=== PATIENT | male | born 1945 | race Caucasian/White ===

== ENCOUNTER 2020-04-03 07:36 | Outpatient (CLI) | payer OTHER, SELFPAY ==
[2020-04-03 10:48] LABS: Basophils % 0.3 %; Eosinophils % 0.3 %; Hematocrit 38.6 % (42.0-52.0); Hemoglobin 12.8 g/dL (11.7-16.6); Lymphocytes % 13.7 %; Mean Corpuscular HGB Conc 33.2 g/dL (30.0-36.0); Mean Corpuscular Hemoglobin 32.1 pg (28.0-34.0); Mean Corpuscular Volume 96.7 fL (80-94); Mean Platelet Volume 8.7 fL (7.4-10.4); Monocytes # 0.4 10^3/uL (0.2-0.9); Monocytes % 5.6 %; Neutrophils # 5.5 10^3/uL (1.8-7.7); Neutrophils % 79.5 %; Nucleated Red Blood Cells % 0 %; Platelet Count 172 10^3/cmm (130-400); Red Blood Count 3.99 10^6/uL (4.1-5.3); Red Cell Distribution Width 13.7 % (12.1-15.1); White Blood Count 6.9 10^3/uL (4.0-10.0)
[2020-04-03 11:38] LABS: Testosterone Total < 2.5 ng/dL (193-740)
[2020-04-03 11:47] LABS: Alanine Aminotransferase 15 U/L (0-41); Albumin Level 4.6 g/dL (3.5-5.2); Alkaline Phosphatase 506 IU/L (40-130); Anion Gap 15.7 (5-19); Aspartate Amino Transferase 18 U/L (0-40); Blood Urea Nitrogen 16 mg/dL (8-23); Calcium 8.7 mg/dL (8.5-10.5); Carbon Dioxide 27 mmol/L (22-29); Chloride 104 mmol/L (98-107); Globulin 1.9 g/dL (1.3-4.6); Glucose 121 mg/dL (65-115); Osmolality Calculated 292 mOsm/kg (285-295); Potassium 4.7 mmol/L (3.5-5.1); Sodium 142 mmol/L (136-145); Total Bilirubin 0.7 mg/dL (0.15-1.2); Total Protein 6.5 g/dL (6.6-8.7)
[2020-04-03 12:12] LABS: Carcinoembryonic Antigen 4.2 ng/mL (0.0-4.7)
--- NOTE | 2020-04-03 18:19 | ONC CON_ITS ---
Dr. lAlen New Patient Note Patient: Micah Bhandari Unit #: [id number]: 1945 Dicatated By: Della Allen M.D.Date of Visit: Apr 03, 2020 Onc MED New Patient/Consult Referring Physician: JUANCHO BOWDEN History of Present Illness: Mr. Micah Bhandari, 74-year-old gentleman with history of hormone refractory prostate cancer, bone mets, history of basal cell carcinoma involving skin on the right protestant, distant history of colon cancer. As per patient initially, he was diagnosed with prostate cancer in 2005 when he was in [facility] at that time he was treated with radiation therapy along with Zoladex/Casodex for 1 year., With that his PSA become undetected. And during follow-up he did fine till April 2015, when his PSA increased to 12.2 then repeat on June 17, 2015 it went up to 17 at that point, he was started on ADT with Eligard and Casodex with that his PSA came down to 0.1 then slowly gradually started going up again in January his PSA gone up to 1.7 and repeat on May 21, 2017 it was 2.5 and on August 18, 2017 it was 5.8, on November 16, 2017 it was 14.9, at that point bone scan and CT scan of abdomen pelvis was considered and was performed on February 23, 2018 which showed right 12th rib involvement, left second rib and mid femur involvement so at this point Xtandi 160 mg was added to the Eligard, which he tolerated well and his repeat PSA showed progression and on March 01, 2019 his PSA was 7, and advised to go on [id number] PSA checkup and follow-up PSA level continues to go up and on April 04, 2019 it was 11.3 and on June 08, 2019 it was 20.3. Confirming failure of Xtandi at that point he was switched to Zytiga 1000 mg/prednisone 10 mg. And patient was referred to Dr. Montgomery radiation oncologist in [place] for radiation therapy to right mid femur and left scapula and chest wall mass. Patient continued with Zytiga/prednisone/Eligard during radiation therapy and to follow-up bone scan and CT scan of chest abdomen pelvis done on August 09, 2019 showed no visceral disease but increasing metabolism in the right femur. Right 12th rib hypermetabolism had resolved and the PSA improved from 20.3 on June 08 2019-11.7 on August 14, 2019 and then 10.1 on August 29, 2019 and 9.51 September 28, 2019, which was encouraging but it was unclear as whether it was due to radiation therapy or Zytiga/prednisone. Patient was referred to Dr. Huerta, orthopedic oncology for right femur medullary nail placement but it was not recommended. And patient underwent dental clearance for Zometa therapy His follow-up PSA on November 23 gone up to 23.4 compared to 9.5 on September 28, 2019, he was concerned as a PSA doubling time was less than 2 months, and there was concern regarding failure of Zytiga/prednisone. At that time molecular studies including MMR D/and BRCA2/PALB2 was considered but could not get original blocks from [facility] for the testing. In the meantime patient underwent PET scan on December 20, 2019 which showed reidentification of soft tissue mass encasing left second rib, with SUV of 6.6 and rib is eroded. Maximum dimension of the mass is 6 cm. In the left upper lobe of lung adjacent to this mass is 14.8 mm nodule with SUV of 4.14. Suspicious for neoplastic process. FDG in remainder of internal organ is within normal range. Right temporal skin lesion shows SUV 3.4 consistent with neoplastic process. Right lip skin lesion has SUV of 2.8. Left cheek skin with SUV of 1.4 that is of uncertain significance. Multiple bone lesions have increased FDG and concurrent sclerosis consistent with metastatic disease to the bone and the sites are right seventh rib, right glenoid, right humerus, left humerus, left sixth rib, vertebral body T6, vertebral body T10, left sacrum, right femoral neck, right proximal femur. Patient was started on Zometa 4 mg IV on November 23, 2019 and will continue on Zytiga/prednisone/6 monthly Eligard. Because initial biopsy blocks were not available from [facility], biopsy of left second rib/mass was under consideration to confirm metastatic prostate cancer if it does, consider molecular studies if it shows dMMR in that case pembrolizumab can be considered on the other hand if it shows BRCA2 or PALB2 mutation then palbociclib can be considered. In the meantime initiating treatment with Taxotere was also discussed. But due to coronavirus related problems patient could not go back to [place] so he missed his 6 monthly Eligard dose which was due in February 2020 and also missed 3 monthly Zometa dose which was due on February 22, 2020 but continue take Zytiga thousand milligrams along with prednisone 10 mg. And could not get scheduled follow-up biopsy of left second rib mass either.Patient also has history of coronary artery disease, as per patient not being managed conservatively with nitroglycerin as needed. And sometime it (nitroglycerin) makes his 'blood pressure go down'. Patient denies any specific complaint today, no left chest wall pain, no any other bony pains but indigestion or burping off and on some time mid chest discomfort due to that and usually respond to nitroglycerin as recommended by his billing auditor. But no fever or chills, no nausea or vomiting, no diarrhea or constipation, no dysuria or hematuria. Past Medical History: Mr. Bhandari's medical history consists of aortic valve stenosis, hiatal hernia, history of colon cancer, history of prostate cancer, and hypertension. Past Surgical History: Mr. Bhandari's surgical/procedural history consists of right hemicolectomy in 2009. Medications: Ascorbic Acid 1 Tablet (of 500 mg) Oral b.i.d., Aspirin 1 Tablet (of 81 mg) Oral daily, Atorvastatin Calcium 1 (40 mg) Tablet Oral at bedtime, Calcium 500 + D3 2 Tablet (of 500-200 mg - Units) Oral daily, Cinnamon 1,000 mg (of 500 mg) Tablet Oral daily, Flax Seed Oil 1 Tablet (of 1300 mg) Capsule Oral b.i.d., Garlic 1 Tablet (of 1000 mg) Capsule Oral daily, Glucosamine HCl 2,000 mg (of 1000 mg) Tablet Oral b.i.d., Isosorbide Mononitrate ER 1 (30 mg) Tablet SR 24 HR Oral daily, Lisinopril 1 Tablet (of 20 mg) Oral daily, Emmett Multi Men 1 Tablet Oral daily, Milk Thistle 1 Tablet (of 175 mg) Capsule Oral daily, Nitroglycerin 1 Tablet (of 0.4 mg) Tablet, sublingual Sublingual PRN, Potassium 1 Tablet (of 595 mg) Oral daily, Potassium Gluconate 1 Tablet (of 595 (99 k) mg) Oral daily, predniSONE 1 Tablet (of 5 mg) Oral b.i.d., RA St [place] Wort 1 Tablet (of 300 mg) Oral b.i.d., Rosuvastatin Calcium 1 Tablet (of 20 mg) Oral at bedtime, Zytiga 4 Tablet (of 250 mg) Oral daily Allergies: Lipitor Social History: Mr. Bhandari is and he is retired. Mr. Bhandari quit smoking 16 years ago but had smoked 1.0 pack/day for 40 years. He has no history of drinking. Mr. Bhandari reports the following support systems: lives with spouse, significant other, family, or friends, lives in own house, supportive family/friends willing to assist with needs, and adequate transportation available for expected visits. His diet consists of regular meals. He indicates his activity level as: light exercise. Family History: Mr. Bhandari's mother is : colon cancer. Mr. Bhandari's father at age 75: stroke. Review Of Symptoms: Constitutional - Appetite is good and weight is stable. No fever, night sweats. Positive for occasional hot flashes. Energy level is good, ENMT - Positive for sinus congestion/drainage. No mouth sores. No sore throat or difficulty swallowing, Hematologic/Lymphatic - No abnormal bruising or bleeding, Respiratory - No shortness of breath. No cough. No pleuritic pain or hemoptysis, Cardiovascular - No angina pain. Positive for occasional palpitations, Gastrointestinal - No nausea or vomiting. No heartburn or acid reflux. No diarrhea or constipation. No blood in the stool or black stools, Genitourinary (M) - No dysuria or hematuria. No urinary frequency. No urgency. Positive for incontinence, Musculoskeletal - Pt reports arthritis pain, Integumentary - Positive for basal cell skin cancers per Pt report, Neurologic - No headache or dizziness. Positive for slight numbness in toes, Psychiatric - No anxiety or depression. No insomnia. Vital Signs: Performed on Apr 03, 2020 08:39: 0, 30.62 (HIGH), 1.91 sq.m, 65.00 in, 98 %, 69 /min, 18 /min, 165/71 mm(hg) (HIGH), 97.8 F (LOW), and 184.0 lbs (HIGH). Performance Status: 1 - No physically strenuous activity, but ambulatory and able to carry out light or sedentary work (e.g. office work, light house work). (ECOG) Physical Examination: ENMT - No mouth sores, no thrush, no jaundice, Respiratory - Lungs are clear, Cardiovascular - Regular rate and rhythm of heart, Abdomen - Soft, bowel sounds present, Extremities - No visible edema. Lab/Imaging: Most recent lab results are not available for this patient. Impression: Hormone refractory metastatic prostate cancer with extensive bone mets, 6 monthly Eligard/Casodex was started June 2015 And continued Status post Xtandi from February 23, 2018 till May 2019 External beam radiation to right hip and left shoulder in May 2019 through June 23, 2019 Zytiga/prednisone was added in June 2019 3 monthly Zometa was added on November 23, 2019 initially diagnosed in 2006, at that time he was treated with prostate radiation therapy and year-long Zoladex/Casodex with excellent response CT PET scan done on December 20, 2019 showed left second rib soft tissue mass encasing and eroding the rib size 6 cm and SUV 6.6. In the left upper lobe of lung adjacent to this mass is 14.8 mm nodule with SUV of 4.14, suspicious for neoplastic process. No other visceral involvement. Extensive bone mets Plan: Discussed with patient regarding his disease status and treatment options which include systemic chemotherapy with Taxotere/prednisone as suggested and planned by Dr. Boss is medical oncologist in [facility] but patient is reluctant due to related side effects and toxicity other option would be considering biopsy of left second rib mass to confirm metastatic prostate cancer, if it does then consider molecular profiling with next addition sequencing which include dMMR, if positive pembrolizumab can be considered and if BRCA2 orPALB2 mutation is detected, palbociclib can be considered. And if PIC3CA mutation is detected then alpelisib (piqray) can be considered. On the other hand if it shows a second malignancy then will plan accordingly. In the meantime we will obtain approval for Eligard or Lupron and continue on 6 monthly schedule. And also approval for Zometa 4 mg every 3 months. And continue with Zytiga and prednisone until left second rib mass biopsy results available. In the meantime will obtain baseline CBC CMP PSA and testosterone level and then patient will return to clinic in 1 month with a PSA level. As far as coronary artery disease is concerned, patient is being treated conservatively and using nitroglycerin off and on for vague mid chest pain/discomfort, we will refer him to cardiology for evaluation and management. Patient was advised to continue with aspirin as recommended. All the questions and concerns were discussed to patient and his 's satisfaction. Signed By: Della Allen M.D. <<Signature on File>>
== END 2020-04-03 07:37 | disposition home or self-care (01) ==
PROVIDERS: PCP Emergency Medicine; Visit Provider Internal Medicine Hematology & Oncology
DX: C61 Malignant neoplasm of prostate (principal); C79.51 Secondary malignant neoplasm of bone; I25.10 Atherosclerotic heart disease of native coronary artery without angina pectoris; Z92.3 Personal history of irradiation; Z79.818 Long term (current) use of other agents affecting estrogen receptors and estrogen levels
CPT/HCPCS: 80053; 82378; 84153; 84403; 85025; G0463

== ENCOUNTER 2020-04-05 09:16 | Outpatient (CLI) | payer OTHER, SELFPAY ==
[2020-04-05] MEDS: sodium chloride 0.9% (100 ml) 100 ML 75 ML (09:35)
[2020-04-05] MEDS: zoledronic acid 4 MG in sodium chloride 0.9% (100 ml) 100 ML 300 MG IV (09:45)
[2020-04-05] MEDS: leuprolide 45 mg Kit IM (10:20)
== END 2020-04-05 09:17 | disposition home or self-care (01) ==
LOC: ONCMED 09:19
PROVIDERS: PCP Emergency Medicine; Visit Provider Internal Medicine Hematology & Oncology
DX: C79.51 Secondary malignant neoplasm of bone (principal); I10 Essential (primary) hypertension; I35.0 Nonrheumatic aortic (valve) stenosis; Z85.46 Personal history of malignant neoplasm of prostate; Z85.038 Personal history of other malignant neoplasm of large intestine
CPT/HCPCS: 96365; 96372; 96402; J3489; J9217

== ENCOUNTER 2020-05-14 10:04 | Outpatient (CLI) | payer OTHER, SELFPAY ==
--- NOTE | 2020-05-14 10:12 | CT_ITS ---
WS: [id number] CT CHEST TECHNIQUE: Contrast enhanced CT of the chest with coronal and sagittal reformatted images. CLINICAL INFORMATION: chest wall mass COMPARISON: CT and bone scan May 25, 2019 DLP: 842.[address] scans at [facility] use at least one of these dose optimization techniques: automat ed exposure control; mA and/or kV adjustment per patient size (includes targeted exams where dose is matched to clinical indication); or iterative reconstruction. FINDINGS: Again seen is the large left chest wall mass involving the second rib and extending into the axilla. Erosive changes involving the lateral first rib. This is not significantly changed in size compared t o and today measures approximately 6.5 x 6.2 x 6.9cm. This extends into the chest cavity an d lung parenchyma with surrounding new nodularity and infiltrate. Soft tissue thickening extends to t he left hilum with New enlarged metastatic left AP window lymph node measuring 1.6 cm. Diffuse blastic metastatic disease throughout the visualized thoracic spine has significantly progres sed since . Diffuse blastic metastasis throughout the visualized ribs and appendicular skelet on. Aortic calcification. Coronary calcification. No mediastinal lymphadenopathy. New low-attenuation les ions in the liver likely due to metastatic disease. Largest in the right hepatic lobe measuring 2.2 C M. This is only partially evaluated CT/CT chest w con* [id number] IMPRESSION: 1. Diffuse blastic metastatic disease throughout the visualized axial and appe ndicular skeleton as significantly progressed since the prior examinations. 2. Low-attenuation lesions partially visualized in the right hepatic lobe like ly due to metastatic disease. This is only partially evaluated. 3. Left anterior chest wall mass with involvement of the first and second ribs measuring 6.2 x 6.5 x 6.9 cm is not significantly changed in size. 4. New nodular soft tissue deposits about the chest wall mass involving the gillis rrounding lung suspicious for local metastatic disease and parenchymal invasion . 5. New metastatic left AP window lymph node measuring 1.6 cm.
[2020-05-14] MEDS: iohexol 300 mg/mL 100 mL Btl IV (10:41)
== END 2020-05-14 10:05 | disposition home or self-care (01) ==
LOC: RADWPI 10:06
PROVIDERS: Family Provider Emergency Medicine Emergency Medical Services; PCP Emergency Medicine Emergency Medical Services; Visit Provider Surgery
DX: R22.2 Localized swelling, mass and lump, trunk (principal); K76.9 Liver disease, unspecified
CPT/HCPCS: 71260; Q9967

== ENCOUNTER 2020-05-23 06:21 | Outpatient (CLI) | payer OTHER, SELFPAY ==
[2020-05-22 11:43] VITALS: BMI 28.6
[2020-05-23] VITALS (9 sets, daily range): BP systolic 102–170; BP diastolic 53–107; PULSE 76–104; RESP 18–20; TEMP 36.5; O2SAT 95–100
[2020-05-23] MEDS: sodium chloride 0.9% 1,000 ML 30 ML IV (06:55)
[2020-05-23 07:12] LABS: INR 0.95 (0.8-1.2)
--- NOTE | 2020-05-23 08:00 | CT_ITS ---
WS: [id number] LUNG BIOPSY CLINICAL INFORMATION: LEFT UPPER LUNG LOBE MASS COMPARISON: None. DLP: 753.02 mGy.cm TECHNIQUE: The procedure including risks, benefits, and complications were discussed with the patient who agreed to proceed. Using sterile technique, the patient was prepped and draped in the usual ster ile fashion. Patient was positioned supine and CT images were obtained through the left lung. The lar ge peripheral lung mass was selected. After 1% lidocaine using fluoroscopic guidance, a 18-gauge coa xial needle was advanced into the left lung mass. Approximately 5 samples were obtained. Post procedu re CT images demonstrate expected hemorrhage about the region. No visualized pneumothorax. No immedia te complications. CT/CT biopsy lung [id number] IMPRESSION: 1. Multiple 18-gauge core samples were obtained of the left lung mass. No imme diate complications. 2. 90 minute chest x-ray demonstrates no pneumothorax 3. Patient was discharged 2 hours postprocedure in stable condition.
[2020-05-23] MEDS: midazolam 1 mg/mL INJ 2 mL IV ×2 (09:01→09:07)
[2020-05-23] MEDS: midazolam 1 mg/mL INJ 5 ML IV ×2 (09:01→09:07)
[2020-05-23] MEDS: fentaNYL 50 mcg/mL INJ 2mL 25 MCG IVP ×3 (09:02→09:08)
[2020-05-23] MEDS: midazolam 1 mg/mL INJ 2 mL IVP (09:07)
--- NOTE | 2020-05-23 10:35 | XR_ITS ---
WS: [id number] CHEST XRAY TECHNIQUE: Portable chest. CLINICAL INFORMATION: PSOT BIOPSY COMPARISON: CT chest May 14, 2020 FINDINGS: Heart: Cardiomegaly. Aortic calcification. Lungs: Again seen is the large left upper lung mass involving the first and second ribs. No evidence of pneumothorax. Bones: Diffuse blastic metastasis better visualized on the prior CT. XR/XR chest 1V portable [id number] IMPRESSION: 1. Status post biopsy of the large left upper lobe chest wall mass. No pneumot horax. 2. No other significant changes since the prior CT.
--- NOTE | 2020-05-23 10:55 | SUR.PHASEII ---
DOCTOR SEGURA REVIEWED CHEST X RAY. PT MAY BE DISCHARGED AT 11:30.
== END 2020-05-23 11:36 | disposition home or self-care (01) ==
PROVIDERS: Radiology Neuroradiology; Family Provider Emergency Medicine Emergency Medical Services; PCP Emergency Medicine Emergency Medical Services; Visit Provider Surgery
DX: R91.8 Other nonspecific abnormal finding of lung field (principal)
CPT/HCPCS: 32405; 36415; 71045; 77012; 85610; 88307; 96374; 96375; J2250; J3010; J7030

== ENCOUNTER 2020-06-10 11:29 | Outpatient (CLI) | payer OTHER, SELFPAY ==
--- NOTE | 2020-06-11 19:25 | ONC FU_ITS ---
Dr. Allen follow up note Patient: Micah Bhandari Unit #: [id number]: 1945 Dicatated By: Della Allen M.D.Date of Visit:Jun 10, 2020 Onc Med Follow-up/Prog Note History of Present Illness: Mr. Micah Bhandari, 74-year-old gentleman with history of hormone refractory prostate cancer, bone mets, history of basal cell carcinoma involving skin on the right jewish, distant history of colon cancer. As per patient initially, he was diagnosed with prostate cancer in 2005 when he was in [facility] at that time he was treated with radiation therapy along with Zoladex/Casodex for 1 year., With that his PSA become undetected. And during follow-up he did fine till April 2015, when his PSA increased to 12.2 then repeat on June 17, 2015 it went up to 17 at that point, he was started on ADT with Eligard and Casodex with that his PSA came down to 0.1 then slowly gradually started going up again in January his PSA gone up to 1.7 and repeat on May 21, 2017 it was 2.5 and on August 18, 2017 it was 5.8, on November 16, 2017 it was 14.9, at that point bone scan and CT scan of abdomen pelvis was considered and was performed on February 23, 2018 which showed right 12th rib involvement, left second rib and mid femur involvement so at this point Xtandi 160 mg was added to the Eligard, which he tolerated well and his repeat PSA showed progression and on March 01, 2019 his PSA was 7, and advised to go on [id number] PSA checkup and follow-up PSA level continues to go up and on April 04, 2019 it was 11.3 and on June 08, 2019 it was 20.3. Confirming failure of Xtandi at that point he was switched to Zytiga 1000 mg/prednisone 10 mg. And patient was referred to Dr. Montgomery radiation oncologist in [place] for radiation therapy to right mid femur and left scapula and chest wall mass. Patient continued with Zytiga/prednisone/Eligard during radiation therapy and to follow-up bone scan and CT scan of chest abdomen pelvis done on August 09, 2019 showed no visceral disease but increasing metabolism in the right femur. Right 12th rib hypermetabolism had resolved and the PSA improved from 20.3 on June 08 2019-11.7 on August 14, 2019 and then 10.1 on August 29, 2019 and 9.51 September 28, 2019, which was encouraging but it was unclear as whether it was due to radiation therapy or Zytiga/prednisone. Patient was referred to Dr. Huerta, orthopedic oncology for right femur medullary nail placement but it was not recommended. And patient underwent dental clearance for Zometa therapy His follow-up PSA on November 23 gone up to 23.4 compared to 9.5 on September 28, 2019, he was concerned as a PSA doubling time was less than 2 months, and there was concern regarding failure of Zytiga/prednisone. At that time molecular studies including MMR D/and BRCA2/PALB2 was considered but could not get original blocks from [facility] for the testing. In the meantime patient underwent PET scan on December 20, 2019 which showed reidentification of soft tissue mass encasing left second rib, with SUV of 6.6 and rib is eroded. Maximum dimension of the mass is 6 cm. In the left upper lobe of lung adjacent to this mass is 14.8 mm nodule with SUV of 4.14. Suspicious for neoplastic process. FDG in remainder of internal organ is within normal range. Right temporal skin lesion shows SUV 3.4 consistent with neoplastic process. Right lip skin lesion has SUV of 2.8. Left cheek skin with SUV of 1.4 that is of uncertain significance. Multiple bone lesions have increased FDG and concurrent sclerosis consistent with metastatic disease to the bone and the sites are right seventh rib, right glenoid, right humerus, left humerus, left sixth rib, vertebral body T6, vertebral body T10, left sacrum, right femoral neck, right proximal femur. Patient was started on Zometa 4 mg IV on November 23, 2019 and will continue on Zytiga/prednisone/6 monthly Eligard. Because initial biopsy blocks were not available from [facility], biopsy of left second rib/mass was under consideration to confirm metastatic prostate cancer if it does, consider molecular studies if it shows dMMR in that case pembrolizumab can be considered on the other hand if it shows BRCA2 or PALB2 mutation then palbociclib can be considered. In the meantime initiating treatment with Taxotere was also discussed. But due to coronavirus related problems patient could not go back to [place] so he missed his 6 monthly Eligard dose which was due in February 2020 and also missed 3 monthly Zometa dose which was due on February 22, 2020 but continue take Zytiga thousand milligrams along with prednisone 10 mg. And could not get scheduled follow-up biopsy of left second rib mass either.Patient also has history of coronary artery disease, as per patient not being managed conservatively with nitroglycerin as needed. And sometime it (nitroglycerin) makes his 'blood pressure go down'. Patient denies any specific complaint today, no left chest wall pain, no any other bony pains but indigestion or burping off and on some time mid chest discomfort due to that and usually respond to nitroglycerin as recommended by his baggage clerk. But no fever or chills, no nausea or vomiting, no diarrhea or constipation, no dysuria or hematuria.Came for follow-up, denies any specific complaints except right jewish skin lesion and the right upper lip lesion for which he is going to see dermatology in [place] otherwise denies any fever chills denies any nausea vomiting diarrhea diarrhea constipation denies any chest pain hemoptysis or hematemesis, appetite is good. Occasionally hot flashes otherwise no new symptoms Medications: Ascorbic Acid 1 Tablet (of 500 mg) Oral b.i.d., Aspirin 1 Tablet (of 81 mg) Oral daily, Atorvastatin Calcium 1 (40 mg) Tablet Oral at bedtime, Calcium 500 + D3 2 Tablet (of 500-200 mg - Units) Oral daily, Cinnamon 1,000 mg (of 500 mg) Tablet Oral daily, Flax Seed Oil 1 Tablet (of 1300 mg) Capsule Oral b.i.d., Garlic 1 Tablet (of 1000 mg) Capsule Oral daily, Glucosamine HCl 2,000 mg (of 1000 mg) Tablet Oral b.i.d., Isosorbide Mononitrate ER 1 (30 mg) Tablet SR 24 HR Oral daily, Lisinopril 1 Tablet (of 20 mg) Oral daily, Emmett Multi Men 1 Tablet Oral daily, Milk Thistle 1 Tablet (of 175 mg) Capsule Oral daily, Nitroglycerin 1 Tablet (of 0.4 mg) Tablet, sublingual Sublingual PRN, Potassium 1 Tablet (of 595 mg) Oral daily, Potassium Gluconate 1 Tablet (of 595 (99 k) mg) Oral daily, predniSONE 1 Tablet (of 5 mg) Oral b.i.d., RA St Coleman Wort 1 Tablet (of 300 mg) Oral b.i.d., Rosuvastatin Calcium 1 Tablet (of 20 mg) Oral at bedtime, Zytiga 4 Tablet (of 250 mg) Oral daily Allergies: Lipitor Review of Systems: Constitutional - Appetite is good and weight is stable. No fever, night sweats. Positive for occasional hot flashes. Energy level is good, ENMT - Positive for sinus congestion/drainage. No mouth sores. No sore throat or difficulty swallowing, Hematologic/Lymphatic - No abnormal bruising or bleeding, Respiratory - No shortness of breath. No cough. No pleuritic pain or hemoptysis, Cardiovascular - No angina pain. Positive for occasional palpitations, Gastrointestinal - No nausea or vomiting. No heartburn or acid reflux. No diarrhea or constipation. No blood in the stool or black stools, Genitourinary (M) - No dysuria or hematuria. No urinary frequency. No urgency. Positive for incontinence, Musculoskeletal - Pt reports arthritis pain, Integumentary - Positive for basal cell skin cancers per Pt report, Neurologic - No headache or dizziness. Positive for slight numbness in toes, Psychiatric - No anxiety or depression. No insomnia. Vital Signs: Performed on Jun 10, 2020 11:37 Height - 65.00 in Weight - 173.2 lbs (LOW) BSA - 1.86 sq.m BMI - 28.82 Temperature - 97.9 F (LOW) Pulse - 97 /min Respiration - 18 /min BP - 133/76 mm(hg) O2 Sat - 99 % Pain - 0 Performance Status: 0 - Fully active, able to carry on all predisease activities without restrictions. (ECOG) Physical Examination: ENMT - No mouth sores, no thrush, no jaundice, There is about 1 cm lesion on the right jewish and also on the left upper lip consistent with ? basal cell carcinoma, Respiratory - Lungs are clear, Cardiovascular - Regular rate and rhythm of heart, Abdomen - Soft, bowel sounds present, Extremities - No visible edema. Lab/Imaging: Test performed on Apr 03, 2020 10:19 Sodium 142 mmol/L Testosterone, Total < 2.5 ng/dL Potassium 4.7 mmol/L Chloride 104 mmol/L CO2 27 mmol/L Anion Gap 15.7 BUN 16 mg/dL Creatinine 0.6 mg/dL Cr Clearance (Est) 123.6500 mL/min Glucose 121 mg/dL Calcium 8.7 mg/dL Protein, Total 6.5 g/dL Albumin 4.6 g/dL Globulin 1.9 g/dL Bilirubin, Total 0.7 mg/dL ALT (SGPT) 15 U/L AST (SGOT) 18 U/L Alkaline Phosphatase 506 IU/L WBC 6.9 10 3/uL RBC 3.99 10 6/uL HGB 12.8 g/dL HCT 38.6 % MCV 96.7 fL MCH 32.1 pg MCHC 33.2 g/dL RDW 13.7 % Platelet Count 172 10 3/cmm MPV 8.7 fL Neutrophils 5.5 10 3/uL Lymphocytes 1.0 10 3/uL Monocytes 0.4 10 3/uL Eosinophils 0.0 10 3/uL Basophils 0.0 10 3/uL Neutrophil % 79.5 % Lymphocyte % 13.7 % Monocyte % 5.6 % Eosinophil % 0.3 % Basophils % 0.3 % NRBC % 0 % CEA 4.2 ng/mL PSA 302.800 ng/mL Impression: Hormone refractory metastatic prostate cancer with extensive bone mets, 6 monthly Eligard/Casodex was started June 2015 And continued Status post Xtandi from February 23, 2018 till May 2019 External beam radiation to right hip and left shoulder in May 2019 through June 23, 2019 Zytiga/prednisone was added in June 2019 3 monthly Zometa was added on November 23, 2019 initially diagnosed in 2005, at that time he was treated with prostate radiation therapy and year-long Zoladex/Casodex with excellent response CT PET scan done on December 20, 2019 showed left second rib soft tissue mass encasing and eroding the rib size 6 cm and SUV 6.6. In the left upper lobe of lung adjacent to this mass is 14.8 mm nodule with SUV of 4.14, suspicious for neoplastic process. No other visceral involvement. 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 And patient said he also has some cardiac issues and wants to discuss with his primary care physician and baggage clerk before he consider further evaluation or rebiopsy. And wants to think about this so he will return to clinic in 1 month for discussion, will also discuss with radiation oncology regarding transformation of prostate cancer into new histology due to radiation therapy or patient has second primary as patient was given radiation therapy to this mass earlier.As far as right temporal skin lesion and right upper lip lesion is concerned,, clinically appears like basal cell carcinoma, patient has appointment with dermatology in [facility]. Signed By: Della Allen M.D. <<Signature on File>>
== END 2020-06-10 11:30 | disposition home or self-care (01) ==
LOC: ONCMED 11:31
PROVIDERS: PCP Emergency Medicine Emergency Medical Services; Visit Provider Internal Medicine Hematology & Oncology
DX: C61 Malignant neoplasm of prostate (principal); C79.51 Secondary malignant neoplasm of bone; I10 Essential (primary) hypertension
CPT/HCPCS: 99214

== ENCOUNTER 2020-06-29 11:36 | Emergency (ER) | payer OTHER, SELFPAY ==
[2020-06-29 11:43] VITALS: BP 100/71; PULSE 101; RESP 18; TEMP 37.1; O2SAT 97; BMI 27.3
--- NOTE | 2020-06-29 12:01 | XRR_ITS ---
PROCEDURE INFORMATION: Exam: XR Chest, 1 View Exam date and time: 06/29/2020 12:20 PM Age: 74 years old Clinical indication: Chest pain TECHNIQUE: Imaging protocol: XR of the chest Views: 1 view. COMPARISON: CR XR chest 1V portable [id number] 05/23/2020 10:36 AM FINDINGS: Lungs: A soft tissue mass associated with destruction of the left 2nd rib projects over the left lung apex. This appears larger than on the comparison exam. Pleural space: No pleural effusion or pneumothorax. Heart/Mediastinum: The cardiac silhouette is not enlarged. The mediastinal contours are normal. Bones/joints: Multifocal osseous metastatic disease is redemonstrated. There is a destructive lesion involving the left 2nd rib with extraosseous tumor extension. XR/XR chest 1V portable [id number] IMPRESSION: Multifocal osseous metastatic disease with an enlarging destructive lesion and extraosseous tumor extension involving the upper left rib cage.
--- NOTE | 2020-06-29 12:01 | ECG_ITS ---
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 Measurements Intervals [place] Rate: 91 P: 53 VA: 171 QRS: 13 QRSD: 114 T: 44 QT: 352 QTc: 434 Interpretive Statements SINUS RHYTHM WITH OCCASIONAL VENTRICULAR PREMATURE COMPLEXES WITH OCCASIONAL SUPRAVENTRICULAR PREMATURE COMPLEXES INFERIOR MYOCARDIAL INFARCTION , PROBABLY OLD [40+ ms Q WAVE AND/OR ST/T ABNORMALITY IN II/aVF] No previous ECG available for comparison Electronically Signed On 06-29-2020 13:12:06 CDT by Kami Romero M.D. [id number]
--- NOTE | 2020-06-29 12:07 | W.ED.CHESTPA ---
HPI - Chest Pain General: Chief Complaint: Chest Pain Stated Complaint: cp Time Seen by Provider: 06/29/20 11:44 Source: patient and family () Mode of arrival: ambulatory Limitations: no limitations History of Present Illness: MD complaint: chest pain Pertinent past history: coronary artery disease Onset (ago): hour(s) (1) Timing of current episode: constant Prior episodes: No Onset: during rest Pain location: left chest Pain radiation: neck and jaw/teeth Severity: moderate Pain scale (0-10): 5 Quality: aching Relieving factors: nothing Exacerbating factors: exertion Associated symptoms: Reports dyspnea; Deny abdominal pain, fever(s), nausea, palpitations or vomiting Review of Systems General: Reports: 10 or more systems reviewed and unremarkable except in HPI and below Const: Denies: fever(s), chills or body aches Eyes: Denies: change in vision or blurry vision ENMT: Denies: throat pain, enlarged tonsils, odynophagia, hoarseness, mouth pain or swelling of lips/tongue Card: Reports: chest pain; Denies: palpitations, irregular heart rhythm, edema or swelling of feet/ankles Resp: Reports: dyspnea GI: Denies: abdominal pain, nausea or vomiting : Denies: flank pain, dysuria, urinary frequency, urinary urgency or urinary hesitancy Musc: Denies: neck pain, back pain or extremity swelling Skin/Breast: Denies: rash, pruritus or erythema Neuro: Denies: headache(s), numbness in extremities or weakness in extremities Endo: Denies: polyuria, polydipsia or tired all the time PFSH ED PFSH: Medical History ASHD (arteriosclerotic heart disease) BCC (basal cell carcinoma of skin) Heart disease Hypertension Prostate cancer Surgical History H/O basal cell carcinoma excision H/O circumcision H/O colonoscopy 2009 History of appendectomy History of colon resection 14 inches removed Family History Daughter Cancer skin bcc Brother Cancer skin bcc Mother Cancer colon Sister Diabetes Other CAD (coronary artery disease) Denies family history of Anesthesia complication Bleeding disorder Social History Smoking and tobacco status: former smoker Alcohol intake: never Household members: spouse Marital status: Current occupational status: retired History of recent travel: No Physical Exam Const: COMMON NORMALS: no acute distress, average body habitus, patient oriented x3, no limitations, healthy appearing, alert and well nourished HENMT: COMMON NORMALS: normocephalic, atraumatic and moist oral mucous membranes HEAD & SCALP: normocephalic and atraumatic Neck/C-Spine: COMMON NORMALS: no meningeal signs and no JVD Chest: COMMONS NORMALS: normal inspection of the chest and normal palpation of entire chest wall Resp: COMMON NORMALS: normal respiratory effort, No retractions, No use of accessory muscles, clear to auscultation bilaterally and percussion normal AUSCULTATION: clear to auscultation bilaterally PERCUSSION: percussion normal Cardio: COMMON NORMALS: no JVD, regular rate, regular rhythm, S1 normal heart sound present, S2 normal heart sound present, No gallops present (Cardio), No clicks present (Cardio), No murmurs present (Cardio), No rub (Cardio) and Peripheral pulses 2+ throughout RATE: regular rate RHYTHM: regular rhythm HEART SOUNDS: S1 normal heart sound present and S2 normal heart sound present PERIPHERAL PULSES: Peripheral pulses 2+ throughout GI: COMMON NORMALS: Normal to inspection, nondistended, normoactive bowel sounds present, Soft to palpation, non-tender, No hepatosplenomegaly present, no masses and no bruits PALPATION: Yes Soft to palpation and Yes No hepatosplenomegaly present Extremity: COMMON NORMALS: normal to inspection, full ROM, capillary refill normal, no calf tenderness and no pedal edema Neuro: COMMON NORMALS: patient oriented x3 SENSORIUM/ORIENTATION: Yes alert MENINGEAL SIGNS: Yes no meningeal signs Skin: COMMON NORMALS: no rashes or lesions noted, no wounds, turgor normal, no jaundice, no petechiae and no mottling GENERAL SKIN EXAM: no rashes or lesions noted and turgor normal Course Reevaluation(s): Reevaluation #1: Discussed the results of his lab and imaging findings with him. High-sensitivity troponin elevated, 2-hour with a flat delta. Discussed options with him including admission for stress testing and possible PCI versus outpatient stress testing. The patient opted for outpatient testing. Time: 15:37 Vital Signs: Vital signs: Vital Signs Temperature 98.7 F 06/29/20 11:43 Pulse Rate 77 06/29/20 16:12 Respiratory Rate 16 06/29/20 16:12 Blood Pressure 138/80 06/29/20 16:12 Pulse Oximetry 95 06/29/20 16:12 MDM - Chest Pain MDM Narrative: Medical decision making narrative: 74-year-old male who presented to the emergency department with chest pain. Evaluation of his chest pain in the emergency department showed he had elevated troponin levels, patient was unwilling to be admitted for evaluation in the hospital and opted for outpatient testing. 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 On x-ray he does have new destruction of his second left rib which may be causing his pain. He was informed about his x-ray findings including the increased size of his soft tissue mass. He does follow-up with oncology. Patient promises to follow-up with his primary care provider and his oncologist. Medical Records: Attestation: I reviewed the patient's medical records. Lab Data: Attestation: I reviewed the patient's lab results. Labs: Lab Results 06/29/20 06/29/20 06/29/20 Range/Units 12:28 12:28 12:28 WBC 4.3 (4.0-10.0) 10^3/ uL RBC 3.75 L (4.1-5.3) 10^6/u L Hgb 11.4 L (11.7-16.6) g/dL Hct 35.4 L (42.0-52.0) % MCV 94.4 H (80-94) fL MCH 30.4 (28.0-34.0) pg MCHC 32.2 (30.0-36.0) g/dL RDW 15.4 H (12.1-15.1) % Plt Count 102 L (130-400) 10^3/c mm MPV 8.1 (7.4-10.4) fL Neut % (Auto) 69.3 % Lymph % (Auto) 16.5 % [place] % (Auto) 8.8 % Eos % (Auto) 0.5 % Baso % (Auto) 0.5 % Neut # (Auto) 2.99 (1.8-7.7) 10^3/u L Lymph # (Auto) 0.7 L (0.8-4.8) 10^3/u L [place] # (Auto) 0.4 (0.2-0.9) 10^3/u L Eos # (Auto) 0.0 (0.0-0.8) 10^3/u L Baso # (Auto) 0.0 (0.0-0.1) 10^3/u L Nucleated RBC % (a uto) 1.2 % Nucleated RBCs # 0.1 /100WBC Sodium 141 (136-145) mmol/L Potassium 3.9 (3.5-5.1) mmol/L Chloride 102 (98-107) mmol/L Carbon Dioxide 27 (22-29) mmol/L Anion Gap 15.9 (5-19) BUN 23 (8-23) mg/dL Creatinine 1.1 (0.7-1.2) mg/dL GFR Calculation Not Reportable Glucose 149 H (65-115) mg/dL Calculated Osmolal ity 292 (285-295) mOsm/k g Calcium 9.0 (8.5-10.5) mg/dL Total Bilirubin 0.5 (0.15-1.2) mg/dL AST 176 H (0-40) U/L ALT 87 H (0-41) U/L Alkaline Phosphata se 468 H (40-130) IU/L Troponin T Baselin e 35 H (0-15) ng/L Troponin T 120 Min gary (0-15) ng/L Delta Troponin T (0-10) ABS# Total Protein 6.2 L (6.6-8.7) g/dL Albumin 4.2 (3.5-5.2) g/dL Globulin 2.0 (1.3-4.6) g/dL Lipase 52 (13-60) U/L 06/29/20 Range/Units 14:20 WBC (4.0-10.0) 10^3/ uL RBC (4.1-5.3) 10^6/u L Hgb (11.7-16.6) g/dL Hct (42.0-52.0) % MCV (80-94) fL MCH (28.0-34.0) pg MCHC (30.0-36.0) g/dL RDW (12.1-15.1) % Plt Count (130-400) 10^3/c mm MPV (7.4-10.4) fL Neut % (Auto) % Lymph % (Auto) % [place] % (Auto) % Eos % (Auto) % Baso % (Auto) % Neut # (Auto) (1.8-7.7) 10^3/u L Lymph # (Auto) (0.8-4.8) 10^3/u L [place] # (Auto) (0.2-0.9) 10^3/u L Eos # (Auto) (0.0-0.8) 10^3/u L Baso # (Auto) (0.0-0.1) 10^3/u L Nucleated RBC % (a uto) % Nucleated RBCs # /100WBC Sodium (136-145) mmol/L Potassium (3.5-5.1) mmol/L Chloride (98-107) mmol/L Carbon Dioxide (22-29) mmol/L Anion Gap (5-19) BUN (8-23) mg/dL Creatinine (0.7-1.2) mg/dL GFR Calculation Glucose (65-115) mg/dL Calculated Osmolal ity (285-295) mOsm/k g Calcium (8.5-10.5) mg/dL Total Bilirubin (0.15-1.2) mg/dL AST (0-40) U/L ALT (0-41) U/L Alkaline Phosphata se (40-130) IU/L Troponin T Baselin e (0-15) ng/L Troponin T 120 Min gary 28.59 H (0-15) ng/L Delta Troponin T -6.41 L (0-10) ABS# Total Protein (6.6-8.7) g/dL Albumin (3.5-5.2) g/dL Globulin (1.3-4.6) g/dL Lipase (13-60) U/L Imaging Data^: CXR: Radiologist's impression: [facility] [address] [place] [address] XRay Report Signed Patient: Cristi Bhandari #: [id number] : 3Acct#:[id number] Age/Sex: 74 / MADM Date: 06/29/20 Loc: ERRoom/Bed: Attending Dr: Ordering Provider/Ordering MD: Natalie Webb [place] [facility] [place] Service: 06/29/20 Procedure(s): XR chest 1V portable [id number] Accession Number(s): [id number] Report Number: [id number] PROCEDURE INFORMATION: Exam: XR Chest, 1 View Exam date and time: 06/29/2020 12:20 PM Age: 74 years old Clinical indication: Chest pain TECHNIQUE: Imaging protocol: XR of the chest Views: 1 view. COMPARISON: CR XR chest 1V portable [id number] 05/23/2020 10:36 AM FINDINGS: Lungs: A soft tissue mass associated with destruction of the left 2nd rib projects over the left lung apex. This appears larger than on the comparison exam. Pleural space: No pleural effusion or pneumothorax. Heart/Mediastinum: The cardiac silhouette is not enlarged. The mediastinal contours are normal. Bones/joints: Multifocal osseous metastatic disease is redemonstrated. There is a destructive lesion involving the left 2nd rib with extraosseous tumor extension. XR/XR chest 1V portable [id number] IMPRESSION: Multifocal osseous metastatic disease with an enlarging destructive lesion and extraosseous tumor extension involving the upper left rib cage. Dictated By:Edgard Boykin Signed By:Kendrick Boykin Date/Time:06/29/20 1305 DD/ 1304 EKG Data^: EKG 1: Attestation: I personally reviewed and interpreted this EKG as follows: EKG interpretation date: 06/29/20 EKG interpretation time: 12:15 Prior EKG tracings: not available for review Interpretation: Sinus rhythm with occasional PVCs. Heart rate 91 beats per minutes. Q waves in 2 3 aVF. 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 Chest pain Qualifiers: Chest pain type: unspecified Qualified Code(s): R07.9 - Chest pain, unspecified Condition: Stable Prescriptions: Continued ascorbic acid (vitamin C) 500 mg capsule 500 mg PO BID RF: 0 calcium citrate-vitamin D2 250-100 mg-unit tablet 1 tab PO BID RF: 0 cinnamon bark 500 mg capsule 1,000 mg PO DAILY RF: 0 flaxseed oil 1,000 mg capsule 1,000 mg PO BID RF: 0 garlic 1,000 mg capsule 1,000 mg PO DAILY RF: 0 Emmett Multivitamin For Men 200-175-250 mcg tablet 1 tab PO DAILY RF: 0 nitroglycerin 0.4 mg tablet, sublingual 0.4 mg SUBLINGUAL Q5M PRN (Reason: Pain) RF: 0 potassium gluconate 595 mg (99 mg) tablet 595 mg PO DAILY RF: 0 prednisone 5 mg tablet 5 mg PO BID RF: 0 Jeff's wort 300 mg capsule 300 mg PO BID RF: 0 abiraterone [Zytiga] 250 mg tablet 1,000 mg PO DAILY RF: 0 Erivedge 150 mg capsule 150 mg PO DAILY RF: 0 isosorbide mononitrate 30 mg tablet extended release 24 hr 15 mg PO BID Qty: 90 RF: 3 lisinopril 20 mg tablet 10 mg PO BID Qty: 90 RF: 3 metoprolol succinate 25 mg tablet extended release 24 hr 12.5 mg PO QAM Qty: 90 RF: 3 milk thistle 175 mg Tablet 175 mg PO DAILY RF: 0 diphenhydramine HCl [Benadryl] 25 mg Capsule 50 mg PO BID RF: 0 rosuvastatin 20 mg Tablet 10 mg PO BEDTIME RF: 0 turmeric 400 mg Capsule 400 mg PO DAILY RF: 0 calcium carbonate [Calcium 500] 500 mg calcium (1,250 mg) Tablet 500 mg PO DAILY RF: 0 Glucosamine-Chondroitin Complx Capsule 1 cap PO BID RF: 0 Discharge Orders: Discharge Order (Routine); Ordered 06/29/20 Ordered By: Natalie Webb Referrals: Stevie Mullen DO [Primary Care Provider] - 1-3 days Patient Instructions: Chest Pain (ED) Activity Restrictions/Additional Instructions: Return for any or worsening symptoms. Follow up with your primary care provider within 3 days. You will be contacted by the transplant case manager next week to schedule an outpatient stress test. Follow up with your public service officer as soon as possible. Discharge Date/Time: 06/29/20 16:13 Coding Level of Care Code ED Workers Compensation Claims Analyst for Chg Fwd Exam Comprehensive
[2020-06-29] MEDS: nitroglycerin 1 gm/inch oint Pkt 1 INCH TOPICAL (12:31)
[2020-06-29 12:34] VITALS: BP 139/84; PULSE 87; RESP 22; O2SAT 95
[2020-06-29 12:35] LABS: Basophils % 0.5 %; Eosinophils % 0.5 %; Hematocrit 35.4 % (42.0-52.0); Hemoglobin 11.4 g/dL (11.7-16.6); Lymphocytes # 0.7 10^3/uL (0.8-4.8); Lymphocytes % 16.5 %; Mean Corpuscular HGB Conc 32.2 g/dL (30.0-36.0); Mean Corpuscular Hemoglobin 30.4 pg (28.0-34.0); Mean Corpuscular Volume 94.4 fL (80-94); Mean Platelet Volume 8.1 fL (7.4-10.4); Monocytes # 0.4 10^3/uL (0.2-0.9); Monocytes % 8.8 %; Neutrophils # 2.99 10^3/uL (1.8-7.7); Neutrophils % 69.3 %; Nucleated Red Blood Cells # 0.1 /100WBC; Nucleated Red Blood Cells % 1.2 %; Platelet Count 102 10^3/cmm (130-400); Red Blood Count 3.75 10^6/uL (4.1-5.3); Red Cell Distribution Width 15.4 % (12.1-15.1); White Blood Count 4.3 10^3/uL (4.0-10.0)
[2020-06-29 12:54] LABS: Troponin(5th) Baseline 35 ng/L (0-15)
[2020-06-29 13:04] LABS: Alanine Aminotransferase 87 U/L (0-41); Albumin Level 4.2 g/dL (3.5-5.2); Alkaline Phosphatase 468 IU/L (40-130); Anion Gap 15.9 (5-19); Aspartate Amino Transferase 176 U/L (0-40); Blood Urea Nitrogen 23 mg/dL (8-23); Carbon Dioxide 27 mmol/L (22-29); Chloride 102 mmol/L (98-107); Glucose 149 mg/dL (65-115); Lipase 52 U/L (13-60); Osmolality Calculated 292 mOsm/kg (285-295); Potassium 3.9 mmol/L (3.5-5.1); Sodium 141 mmol/L (136-145); Total Bilirubin 0.5 mg/dL (0.15-1.2); Total Protein 6.2 g/dL (6.6-8.7)
[2020-06-29 13:34] VITALS: BP 121/75; PULSE 83; RESP 18; O2SAT 96
[2020-06-29 14:00] VITALS: BP 124/66; PULSE 84; RESP 22; O2SAT 95
--- NOTE | 2020-06-29 14:01 | ECG_ITS ---
[facility] Test Date: 2020-06-29 Pat Name: Micah Bhandari Department: Room: Gender: Male Rate Inserter: : 1945 Requested By: Natalie Webb I Order Number: [id number] Reading MD: Kami Romero M.D. Measurements Intervals [place] Rate: 83 P: 58 OK: 176 QRS: 7 QRSD: 105 T: 41 QT: 358 QTc: 423 Interpretive Statements SINUS RHYTHM WITH OCCASIONAL VENTRICULAR PREMATURE COMPLEXES WITH OCCASIONAL SUPRAVENTRICULAR PREMATURE COMPLEXES INFERIOR MYOCARDIAL INFARCTION , PROBABLY OLD [40+ ms Q WAVE AND/OR ST/T ABNORMALITY IN II/aVF] Compared to ECG 06/29/2020 12:14:49 No significant changes Electronically Signed On 07-01-2020 8:32:43 CDT by Kami Romero M.D. [id number]
[2020-06-29 14:53] LABS: Troponin 5 2HR 28.59 ng/L (0-15)
[2020-06-29 14:58] LABS: Troponin 5 2HR Delta -6.41 ABS# (0-10)
[2020-06-29 15:00] VITALS: BP 138/80; PULSE 77; RESP 16; O2SAT 95
[2020-06-29 16:12] VITALS: BP 138/80; PULSE 77; RESP 16; O2SAT 95
--- NOTE | 2020-07-02 11:15 | DCPLANNER ---
territory manager general sales had message to schedule an outpatient stress test for patient. Patient has [employer] insurance, can not schedule a stress test from the ED for patients with VA insurance. territory manager general sales called [facility], spoke with Beth, patient was seen on 07.02.20 with TIMBER MILL WORKER, Elodia Marin. Patient did attend appointment.
== END 2020-06-29 16:13 | disposition home or self-care (01) ==
PROVIDERS: Emergency Provider Family Medicine; PCP Emergency Medicine Emergency Medical Services
DX: R07.9 Chest pain, unspecified (principal); C41.3 Malignant neoplasm of ribs, sternum and clavicle; I10 Essential (primary) hypertension; Z85.46 Personal history of malignant neoplasm of prostate; Z87.891 Personal history of nicotine dependence
CPT/HCPCS: 12345; 36415; 71045; 80053; 83690; 84484; 85025; 93005; 99283; 99284

== ENCOUNTER 2020-07-08 14:22 | Inpatient (IN) | payer OTHER, MEDICARE, SELFPAY ==
[2020-07-08 14:48] VITALS: BP 107/63; PULSE 88; RESP 14; TEMP 36.7; O2SAT 98; BMI 26.4
--- NOTE | 2020-07-08 15:02 | CT_ITS ---
WS: [id number] EXAM: CT OF THE ABDOMEN AND PELVIS WITH CONTRAST DATE OF EXAMINATION: 07/08/2020, 1639 hours COMPARISON: None. HISTORY: 74 years old with abdominal pain and diarrhea. History of prostate cancer. Left upper lobe lung mass. TECHNIQUE: Transaxial computed tomography images obtained through the abdomen and pelvis utilizing 95 mL of Omni paque 300 IV contrast with images acquired in the portal and delayed phase. Images viewed in multiple windows with reconstructions. DLP: 642.[address] scans at [facility] use at least one of these dose optimization techniques: automat ed exposure control; mA and/or kV adjustment per patient size (includes targeted exams where dose is matched to clinical indication); or iterative reconstruction. FINDINGS: The right lung base is clear. There is a small left pleural effusion. Left lung base is otherwise ching ar other than some minimal dependent atelectasis. Heart size is considered minimally enlarged. Aortic valve leaflet calcifications are identified. The aorta shows peripheral calcified plaque without ane urysmal dilatation. Lumen opacifies normally. Considered fairly extensive plaque burden the iliac sys tem. Liver is grossly abnormal. Too numerous to count lesions in the liver felt to represent diffuse metas tatic disease. With the history provided most likely represents metastatic prostate cancer. No large area of devascularization is identified. There is a small amount of ascites adjacent to the anterior liver and right hemidiaphragm. Gallbladder is partially contracted. Several stones or layering dependent within the gallbladder lume n. No pericholecystic inflammatory change. No biliary dilatation is seen. The portal vein is patent. Spleen is normal in size and enhancement. Pancreas is normal in appearance. Adrenal glands are normal in appearance. Both kidneys are normal in size and enhancement. No definite mass lesion is seen. No findings of juan l or ureteral calculus noted. Both kidneys enhance normally. There is a small mass lesion left kidney presumably a cyst. Subcentimeter in size. Incompletely evaluated. No renal or ureteral calculi. No o bstructive uropathy. Stomach is full of fluid and air otherwise unremarkable. Small bowel is normal in caliber. Colon is n ormal in caliber. Diverticulosis changes are demonstrated without findings of diverticulitis. No yessica l obstruction is seen. Postop anastomosis changes are seen in the mid to proximal transverse colon re gion with a transverse colon small bowel anastomosis correlating with a right hemicolectomy. There are findings of adenopathy within the area of the cary hepatis as well as the gastrohepatic li gament region all suggesting metastatic disease. Tiny umbilical hernia containing fat Right greater than left inguinal hernias containing fat. Prostate is markedly small in size. Presumably underwent radiation treatment versus incomplete prosta tectomy. Bladder is minimally distended with a slightly thickened wall. Presumably related to the underdistend ed status. Sclerotic lesions are seen throughout the bones suggesting diffuse metastatic disease. CT/CT abdomen pelvis w con* [id number] IMPRESSION: Imaging findings felt to represent diffuse prostate metastatic disease. Please see body of the report. No bowel obstruction or free air. No renal or ureteral calculus or obstructive uropathy. Other nonemergent findings as described in the body of the report.
[2020-07-08 15:11] VITALS: RESP 18; O2SAT 98
[2020-07-08] MEDS: morphine 4 mg/mL SDV 1 mL IVP (15:11)
[2020-07-08] MEDS: ondansetron 2 mg/ML SDV 2 mL 4 MG IVP (15:11)
--- NOTE | 2020-07-08 15:20 | W.ED.GIBLEED ---
HPI - GI Bleed General: Chief complaint: GI Bleed Stated complaint: BLOOD IN STOOL Time Seen by Provider: 07/08/20 14:51 Source: patient Mode of arrival: ambulatory Limitations: no limitations History of Present Illness: HPI Narrative: 74-year-old male who states he has been having black tarry stools over the last 2 weeks. He does have a history of prostate cancer and is on chemotherapy. Patient was on aspirin but states he has not taken over the last few days. He states he has had increasing weakness. Denies any vomiting. He states he has had some epigastric abdominal pain. Denies any worsening or improving factors. 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 30% proximal LM stenosis, 50% distal LM stenosis. Last coronary angiogram 08/2019. BCC (basal cell carcinoma of skin) Heart disease Hyperlipidemia Hypertension Moderate aortic stenosis Murmur Prostate cancer Surgical History H/O basal cell carcinoma excision H/O circumcision H/O colonoscopy 2010 History of appendectomy History of colon resection 14 inches removed Family History Daughter Cancer skin bcc Brother Cancer skin bcc Mother Cancer colon Sister Diabetes Other CAD (coronary artery disease) Denies family history of Anesthesia complication Bleeding disorder Social History Smoking and tobacco status: former smoker Alcohol intake: never Household members: spouse Marital status: Current occupational status: retired History of recent travel: No Physical Exam Const: COMMON NORMALS: no acute distress, patient oriented x3 and healthy appearing HENMT: COMMON NORMALS: normocephalic and atraumatic HEAD & SCALP: normocephalic and atraumatic Eye: COMMON NORMALS: Equal, round and reactive pupils present and EOMs intact bilaterally PUPIL: Yes Equal, round and reactive pupils present Neck/C-Spine: COMMON NORMALS: full ROM and supple Chest: COMMONS NORMALS: normal inspection of the chest and normal palpation of entire chest wall Resp: COMMON NORMALS: normal respiratory effort, No retractions, No use of accessory muscles and clear to auscultation bilaterally AUSCULTATION: clear to auscultation bilaterally Cardio: COMMON NORMALS: regular rate, regular rhythm and No murmurs present (Cardio) RATE: regular rate RHYTHM: regular rhythm GI: COMMON NORMALS: Normal to inspection, nondistended, normoactive bowel sounds present, Soft to palpation, non-tender and no masses PALPATION: Yes Soft to palpation : OTHER: Slightly dark stool on rectal exam Hemoccult is positive. Extremity: COMMON NORMALS: normal to inspection and full ROM Neuro: COMMON NORMALS: patient oriented x3, moves all extremities and no focal motor deficits Psych: COMMON NORMALS: mental status grossly normal, Normal thought process present and cooperative THOUGHT PROCESS: Normal thought process present Skin: COMMON NORMALS: no rashes or lesions noted and no wounds GENERAL SKIN EXAM: no rashes or lesions noted Course Vital Signs: Vital signs: Vital Signs Temperature 98.1 F 07/08/20 14:48 Pulse Rate 88 07/08/20 14:48 Respiratory Rate 18 07/08/20 16:58 Blood Pressure 107/63 07/08/20 14:48 Pulse Oximetry 96 07/08/20 16:58 MDM - GI Bleed MDM Narrative: Medical decision making narrative: Patient presents here with likely upper GI bleed. Patient was rectal exam here showed dark brown stool that was Hemoccult Positive. No signs of heavy GI bleed at this time. States he has felt weak and his hemoglobin did drop by one-point. I spoke to hospitalist and will admit. Also spoke to Dr. Hayes who is consulted for GI. Lab Data: Labs: Lab Results 07/08/20 07/08/20 07/08/20 Range/Units 15:05 15:05 15:05 WBC 4.8 (4.0-10.0) 10^3/ uL RBC 3.54 L (4.1-5.3) 10^6/u L Hgb 10.6 L (11.7-16.6) g/dL Hct 33.3 L (42.0-52.0) % MCV 94.1 H (80-94) fL MCH 29.9 (28.0-34.0) pg MCHC 31.8 (30.0-36.0) g/dL RDW 16.8 H (12.1-15.1) % Plt Count 110 L (130-400) 10^3/c mm MPV 8.3 (7.4-10.4) fL Neut % (Auto) 69.0 % Lymph % (Auto) 16.9 % [place] % (Auto) 8.3 % Eos % (Auto) 0.4 % Baso % (Auto) 0.4 % Neut # (Auto) 3.31 (1.8-7.7) 10^3/u L Lymph # (Auto) 0.8 (0.8-4.8) 10^3/u L [place] # (Auto) 0.4 (0.2-0.9) 10^3/u L Eos # (Auto) 0.0 (0.0-0.8) 10^3/u L Baso # (Auto) 0.0 (0.0-0.1) 10^3/u L Nucleated RBC % (a uto) 4.2 % Nucleated RBCs # 0.2 /100WBC PT 14.40 (12.1-14.9) SECO NDS INR 1.11 (0.8-1.2) Sodium 140 (136-145) mmol/L Potassium 4.1 (3.5-5.1) mmol/L Chloride 103 (98-107) mmol/L Carbon Dioxide 20 L (22-29) mmol/L Anion Gap 21.1 H (5-19) BUN 39 H (8-23) mg/dL Creatinine 1.1 (0.7-1.2) mg/dL GFR Calculation Not Reportable Glucose 127 H (65-115) mg/dL Calculated Osmolal ity 289 (285-295) mOsm/k g Calcium 8.3 L (8.5-10.5) mg/dL Total Bilirubin 0.9 (0.15-1.2) mg/dL AST 314 H (0-40) U/L ALT 146 H (0-41) U/L Alkaline Phosphata se 470 H (40-130) IU/L Total Protein 6.0 L (6.6-8.7) g/dL Albumin 3.7 (3.5-5.2) g/dL Globulin 2.3 (1.3-4.6) g/dL Lipase 64 H (13-60) U/L / Range/Units 17:12 WBC (4.0-10.0) 10^3/ uL RBC (4.1-5.3) 10^6/u L Hgb 9.5 L (11.7-16.6) g/dL Hct 30.0 L (42.0-52.0) % MCV (80-94) fL MCH (28.0-34.0) pg MCHC (30.0-36.0) g/dL RDW (12.1-15.1) % Plt Count (130-400) 10^3/c mm MPV (7.4-10.4) fL Neut % (Auto) % Lymph % (Auto) % [place] % (Auto) % Eos % (Auto) % Baso % (Auto) % Neut # (Auto) (1.8-7.7) 10^3/u L Lymph # (Auto) (0.8-4.8) 10^3/u L [place] # (Auto) (0.2-0.9) 10^3/u L Eos # (Auto) (0.0-0.8) 10^3/u L Baso # (Auto) (0.0-0.1) 10^3/u L Nucleated RBC % (a uto) % Nucleated RBCs # /100WBC PT (12.1-14.9) SECO NDS INR (0.8-1.2) Sodium (136-145) mmol/L Potassium (3.5-5.1) mmol/L Chloride (98-107) mmol/L Carbon Dioxide (22-29) mmol/L Anion Gap (5-19) BUN (8-23) mg/dL Creatinine (0.7-1.2) mg/dL GFR Calculation Glucose (65-115) mg/dL Calculated Osmolal ity (285-295) mOsm/k g Calcium (8.5-10.5) mg/dL Total Bilirubin (0.15-1.2) mg/dL AST (0-40) U/L ALT (0-41) U/L Alkaline Phosphata se (40-130) IU/L Total Protein (6.6-8.7) g/dL Albumin (3.5-5.2) g/dL Globulin (1.3-4.6) g/dL Lipase (13-60) U/L Imaging Data^: CT Abd/Pel: Attestation: I personally reviewed and interpreted this imaging study as follows: Radiologist's impression: [place] [address] CT Scan Report Signed Patient: Micah Bhandari Unit #: [id number] : 1945 Age/Sex: 74 / M ADM Date: 07/08/20 Loc: ER Room/Bed: Attending Dr: Ordering Provider/Ordering MD: Lion Valente MD Date of Service: 07/08/20 Procedure(s): CT abdomen pelvis w con* [id number] Accession Number(s): [id number] Report Number: [id number] WS: [id number] EXAM: CT OF THE ABDOMEN AND PELVIS WITH CONTRAST DATE OF EXAMINATION: 07/08/2020, 1639 hours COMPARISON: None. HISTORY: 74 years old with abdominal pain and diarrhea. History of prostate cancer. Left upper lobe lung mass. TECHNIQUE: Transaxial computed tomography images obtained through the abdomen and pelvis utilizing 95 mL of Omnipaque 300 IV contrast with images acquired in the portal and delayed phase. Images viewed in multiple windows with reconstructions. DLP: 642.[address] scans at [facility] use at least one of these dose optimization techniques: automated exposure control; mA and/or kV adjustment per patient size (includes targeted exams where dose is matched to clinical indication); or iterative reconstruction. FINDINGS: The right lung base is clear. There is a small left pleural effusion. Left lung base is otherwise clear other than some minimal dependent atelectasis. Heart size is considered minimally enlarged. Aortic valve leaflet calcifications are identified. The aorta shows peripheral calcified plaque without aneurysmal dilatation. Lumen opacifies normally. Considered fairly extensive plaque burden the iliac system. Liver is grossly abnormal. Too numerous to count lesions in the liver felt to represent diffuse metastatic disease. With the history provided most likely represents metastatic prostate cancer. No large area of devascularization is identified. There is a small amount of ascites adjacent to the anterior liver and right hemidiaphragm. Gallbladder is partially contracted. Several stones or layering dependent within the gallbladder lumen. No pericholecystic inflammatory change. No biliary dilatation is seen. The portal vein is patent. Spleen is normal in size and enhancement. Pancreas is normal in appearance. Adrenal glands are normal in appearance. Both kidneys are normal in size and enhancement. No definite mass lesion is seen. No findings of renal or ureteral calculus noted. Both kidneys enhance normally. There is a small mass lesion left kidney presumably a cyst. Subcentimeter in size. Incompletely evaluated. No renal or ureteral calculi. No obstructive uropathy. Stomach is full of fluid and air otherwise unremarkable. Small bowel is normal in caliber. Colon is normal in caliber. Diverticulosis changes are demonstrated without findings of diverticulitis. No bowel obstruction is seen. Postop anastomosis changes are seen in the mid to proximal transverse colon region with a transverse colon small bowel anastomosis correlating with a right hemicolectomy. There are findings of adenopathy within the area of the cary hepatis as well as the gastrohepatic ligament region all suggesting metastatic disease. Tiny umbilical hernia containing fat Right greater than left inguinal hernias containing fat. Prostate is markedly small in size. Presumably underwent radiation treatment versus incomplete prostatectomy. Bladder is minimally distended with a slightly thickened wall. Presumably related to the underdistended status. Sclerotic lesions are seen throughout the bones suggesting diffuse metastatic disease. CT/CT abdomen pelvis w con* [id number] IMPRESSION: Imaging findings felt to represent diffuse prostate metastatic disease. Please see body of the report. No bowel obstruction or free air. No renal or ureteral calculus or obstructive uropathy. Discharge Plan Discharge Condition: Good Prescriptions: No Action ascorbic acid (vitamin C) 500 mg capsule 500 mg PO BID RF: 0 calcium citrate-vitamin D2 250-100 mg-unit tablet 1 tab PO BID RF: 0 cinnamon bark 500 mg capsule 1,000 mg PO DAILY RF: 0 flaxseed oil 1,000 mg capsule 1,000 mg PO BID RF: 0 garlic 1,000 mg capsule 1,000 mg PO DAILY RF: 0 Emmett Multivitamin For Men 200-175-250 mcg tablet 1 tab PO DAILY RF: 0 nitroglycerin 0.4 mg tablet, sublingual 0.4 mg SUBLINGUAL Q5M PRN (Reason: Pain) RF: 0 potassium gluconate 595 mg (99 mg) tablet 595 mg PO DAILY RF: 0 abiraterone [Zytiga] 250 mg tablet 1,000 mg PO DAILY RF: 0 ranolazine 500 mg tablet extended release 12 hr 500 mg PO BID Qty: 90 RF: 2 Erivedge 150 mg capsule 150 mg PO DAILY RF: 0 isosorbide mononitrate 30 mg tablet extended release 24 hr 15 mg PO BID Qty: 90 RF: 3 lisinopril 20 mg tablet 10 mg PO BID Qty: 90 RF: 3 metoprolol succinate 25 mg tablet extended release 24 hr 12.5 mg PO QAM Qty: 90 RF: 3 prednisone 5 mg Tablet 5 mg PO BID RF: 0 Eligard (3 month) 22.5 mg Syringe 22.5 mg SUBCUT Q90D RF: 0 milk thistle 175 mg Tablet 175 mg PO DAILY RF: 0 rosuvastatin 20 mg Tablet 10 mg PO BEDTIME RF: 0 Glucosamine-Chondroitin Complx Capsule 1 cap PO BID RF: 0 Coding Level of Care Code ED Manager E Learning for g Fwd Exam Comprehensive
[2020-07-08 15:21] LABS: Basophils % 0.4 %; Eosinophils % 0.4 %; Hematocrit 33.3 % (42.0-52.0); Hemoglobin 10.6 g/dL (11.7-16.6); Lymphocytes # 0.8 10^3/uL (0.8-4.8); Lymphocytes % 16.9 %; Mean Corpuscular HGB Conc 31.8 g/dL (30.0-36.0); Mean Corpuscular Hemoglobin 29.9 pg (28.0-34.0); Mean Corpuscular Volume 94.1 fL (80-94); Mean Platelet Volume 8.3 fL (7.4-10.4); Monocytes # 0.4 10^3/uL (0.2-0.9); Monocytes % 8.3 %; Neutrophils # 3.31 10^3/uL (1.8-7.7); Nucleated Red Blood Cells # 0.2 /100WBC; Nucleated Red Blood Cells % 4.2 %; Platelet Count 110 10^3/cmm (130-400); Red Blood Count 3.54 10^6/uL (4.1-5.3); Red Cell Distribution Width 16.8 % (12.1-15.1); White Blood Count 4.8 10^3/uL (4.0-10.0)
[2020-07-08 15:41] LABS: Alanine Aminotransferase 146 U/L (0-41); Albumin Level 3.7 g/dL (3.5-5.2); Alkaline Phosphatase 470 IU/L (40-130); Anion Gap 21.1 (5-19); Aspartate Amino Transferase 314 U/L (0-40); Blood Urea Nitrogen 39 mg/dL (8-23); Calcium 8.3 mg/dL (8.5-10.5); Carbon Dioxide 20 mmol/L (22-29); Chloride 103 mmol/L (98-107); Globulin 2.3 g/dL (1.3-4.6); Glucose 127 mg/dL (65-115); Lipase 64 U/L (13-60); Osmolality Calculated 289 mOsm/kg (285-295); Potassium 4.1 mmol/L (3.5-5.1); Sodium 140 mmol/L (136-145); Total Bilirubin 0.9 mg/dL (0.15-1.2)
[2020-07-08 15:51] LABS: INR 1.11 (0.8-1.2)
[2020-07-08] MEDS: pantoprazole 40 mg SDV 80 MG IVP (16:13)
[2020-07-08] MEDS: iohexol 300 mg/mL 100 mL Btl IV (16:42)
[2020-07-08 16:58] VITALS: RESP 18; O2SAT 96
[2020-07-08] MEDS: HYDROmorphone 1 mg/mL INJ 1 mL IVP (16:58)
[2020-07-08 17:31] LABS: Hemoglobin 9.5 g/dL (11.7-16.6)
--- NOTE | 2020-07-08 18:31 | PM.HP ---
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 He presented to the ER today complaining of abdominal pain. Patient states he has been having bloody bowel movements for last 2 weeks with diarrhea and melena continuing for last 2 weeks as well. He is denying of any nausea, vomiting. He is complaining of mild dizziness and difficulty in breathing on exertion. He denies of him taking any NSAIDs. He thinks he had colonoscopy over 10 years ago and is not sure what the results were. As per the patient he stool for occult blood 2 months ago was positive for which at that time they had stopped the aspirin and has been taking aspirin on and off for last 2 to 3 weeks now. Blood work in the ER showed hemoglobin of 9.5, the white count of 4.8, creatinine of 1.1, BUN of 39, sodium of 140, AST of 314, ALT of 146, alkaline phosphatase of 470. His hemoglobin 10 days ago was 11.4. Review of Systems General: Reports: 10 or more systems reviewed and unremarkable except in HPI and below Const: Denies: fever(s), chills, body aches, change in appetite, change in weight, malaise, night sweats, diaphoresis, change in sleep pattern, daytime sleepiness or snoring Eyes: Denies: change in vision, blurry vision, photophobia, eye discomfort or eye discharge ENMT: Denies: throat pain, enlarged tonsils, hoarseness, mouth pain, oral sores, dry mouth, tinnitus, nasal congestion or post nasal drip Card: Denies: chest pain, palpitations, irregular heart rhythm, edema, swelling of feet/ankles, lightheadedness, syncope, pre-syncope, dyspnea on exertion, orthopnea, leg pain with exertion or acrocyanosis Resp: Denies: dyspnea, productive cough, non-productive cough, wheezing, stridor, pain on inspiration, change in phlegm color, hemoptysis or chest congestion GI: Denies: abdominal pain, nausea, vomiting, hematemesis, coffee ground emesis, dysphagia, heartburn, diarrhea, constipation, bloating, GI cramping, change in bowel habits, pain on defecation, hematochezia or melena : Denies: flank pain, difficulty urinating, dysuria, urinary frequency, urinary urgency, urinary hesitancy, urinary dribbling, difficulty starting urination, change in urine stream, nocturia or hematuria Musc: Denies: neck pain, back pain, extremity pain, joint pain, joint swelling, joint redness, joint stiffness or limited range of motion Neuro: Denies: headache(s), numbness in extremities, weakness in extremities, sensory changes, lack of coordination, difficulty walking, frequent falls, dizziness, vertigo, confusion, Slurred speech present, difficulty communicating thoughts or seizure-like activity Psych: Denies: anxiety, depression, mood swings, panic attacks, hopelessness or irritability Endo: Denies: polyuria, polydipsia, tired all the time, cold intolerance, excessive sweating, flushing or heat intolerance Sameer/Lymph: Denies: easy bruising or easy bleeding All/Imm: Denies: tongue swelling, facial swelling or acute wheezing Medications/Allergies Home Medications Medication Instructions Recorded Confirmed Last Taken Type abiraterone 250 mg tablet 1,000 mg PO DAILY 04/29/20 07/08/20 07/08/20 History ascorbic acid (vitamin C) 500 mg 500 mg PO BID cap 04/29/20 07/08/20 05/22/20 History capsule calcium citrate-ergocalciferol 1 tab PO BID tab 04/29/20 07/08/20 05/22/20 History (vitamin D2) 250 mg-100 unit tablet cinnamon bark 500 mg capsule 1,000 mg PO DAILY cap 04/29/20 07/08/20 05/22/20 History flaxseed oil 1,000 mg capsule 1,000 mg PO BID 04/29/20 07/08/20 05/22/20 History garlic 1,000 mg capsule 1,000 mg PO DAILY 04/29/20 07/08/20 04/24/20 History gwuzgxkh-tbt-fgken 200 mcg-lycop 1 tab PO DAILY tab 04/29/20 07/08/20 05/22/20 History 175 mcg-lutei 250 mcg-herb 178 tablet nitroglycerin 0.4 mg sublingual 0.4 mg SUBLINGUAL Q5M PRN 04/29/20 07/08/20 Unknown History tablet potassium gluconate 595 mg (99 mg) 595 mg PO DAILY 04/29/20 07/08/20 05/22/20 History tablet Glucosamine-Chondroitin Complx 1 cap PO BID 05/22/20 07/08/20 05/22/20 History milk thistle 175 mg PO DAILY 05/22/20 07/08/20 05/21/20 History rosuvastatin 10 mg PO BEDTIME 05/22/20 07/08/20 07/07/20 History isosorbide mononitrate 30 mg 15 mg PO BID #90 tab 06/17/20 07/08/20 07/08/20 Rx tablet,extended release 24 hr lisinopril 20 mg tablet 10 mg PO BID #90 tab 06/17/20 07/08/20 07/08/20 Rx vismodegib 150 mg capsule 150 mg PO DAILY 06/17/20 07/08/20 07/08/20 History metoprolol succinate 25 mg 12.5 mg PO QAM #90 tab 06/19/20 07/08/20 07/08/20 Rx tablet,extended release 24 hr ranolazine 500 mg tablet,extended 500 mg PO BID #90 tab 07/03/20 07/08/20 Unknown Rx release,12 hr leuprolide (3 month) [Eligard (3 22.5 mg SUBCUT Q90D 07/08/20 07/08/20 Unknown History month)] prednisone 5 mg PO BID 07/08/20 07/08/20 07/08/20 History Allergies Allergy/AdvReac Type Severity Reaction Status Date / Time No Known Allergies Allergy Verified 07/02/20 08:43 PFSH Acute PFSH: Medical History ASHD (arteriosclerotic heart disease) 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 30% proximal LM stenosis, 50% distal LM stenosis. Last coronary angiogram 08/2019. BCC (basal cell carcinoma of skin) Heart disease Hyperlipidemia Hypertension Moderate aortic stenosis Murmur Prostate cancer Surgical History H/O basal cell carcinoma excision H/O circumcision H/O colonoscopy 2009 History of appendectomy History of colon resection 14 inches removed Family History Daughter Cancer skin bcc Brother Cancer skin bcc Mother Cancer colon Sister Diabetes Other CAD (coronary artery disease) Denies family history of Anesthesia complication Bleeding disorder Social History Smoking and tobacco status: former smoker Alcohol intake: never Household members: spouse Marital status: Current occupational status: retired History of recent travel: No Vitals/I&O/Wt Last Vital Signs Temp 98.1 F 07/08/20 14:48 Pulse 88 07/08/20 14:48 Resp 18 07/08/20 16:58 BP 107/63 07/08/20 14:48 Pulse Ox 96 07/08/20 16:58 Weight last 48 hrs Weight 74.389 kg Physical Exam Narrative: EXAM NARRATIVE: General: No acute distress, AO x3 HEENT: PERRLA, pupils bilaterally equal and reactive Chest: Normal vesicular breath sounds, no added sounds, equal good air entry bilaterally CVS: S1-S2 regular, no murmurs, no tachycardia, no gallops, no rubs Abdomen: Soft, nontender, no organomegaly, bowel sounds present Neuro: No focal deficits, no facial deformity, AO x3, power 5/5 in all limbs Data : 07/08/20 17:12 07/08/20 15:05 A&P Assessment and plan (1) Blood loss anemia: Status: Acute (2) GI bleed: Status: Acute (3) Chronic use of steroids: Status: Acute (4) Moderate aortic stenosis: Status: Acute (5) ASHD (arteriosclerotic heart disease): Status: Acute (6) Hyperlipidemia: Status: Acute Additional A&P Information Blood loss anemia secondary GI bleed: Hemoglobin 10 days ago was 11.4. Today to 9.5. Check iron panel. Keep n.p.o. Protonix 40 mg IV twice daily. Dr. Hayes has been called from ER. Most likely EGD colonoscopy to be planned during this hospitalization. Monitor hemoglobin every 12 hourly. Patient is hemo-dynamically stable for now. We will transfuse PRBC if hemoglobin falls below 8. Hold aspirin. We will continue prednisone as patient has been chronically on prednisone for a long time. CAD: Recent angiogram as above. Unfortunately we will have to hold off aspirin given active GI bleed. Continue metoprolol, Renolazine, statins. We will hold off on Imdur to prevent from hypertension. Continue to monitor vitals. Telemetry. Goals of care: Discussed in detail both with patient and his at bedside. They would want patient to be limited resuscitation. He does not want any mechanical support or chest compressions. Protonix for PUD prophylaxis. SCDs for DVT prophylaxis. No anticoagulation given GI bleed. Attestations Medical Necessity Statement*: More than 2 midnights for blood loss anemia due to GI bleed. Time Spent in Patient Care: Greater than 35 minutes (>than 50% of time spent in counselling and/or direct pt care on unit). Coding Level of Care Code Acute Electrical Maintenance Technician for g Fwd Diagnoses Blood loss anemia D50.0 GI bleed K92.2 Chronic use of steroids Moderate aortic stenosis I35.0 ASHD (arteriosclerotic heart disease) I25.10 Hyperlipidemia E78.5
[2020-07-08] MEDS: pantoprazole 40 MG in sodium chloride 0.9% (plus) 100 ML 20 MG IV (18:49)
--- NOTE | 2020-07-08 19:00 | PC.NURSE ---
Patient's assisting patient to void per urinal at this time.
[2020-07-08 21:06] VITALS: BP 106/64; PULSE 84; RESP 19; O2SAT 95
[2020-07-08 21:23] VITALS: BP 154/90; PULSE 109; RESP 23; TEMP 36.6; O2SAT 96
[2020-07-08 21:57] LABS: Thyroid Stimulating Hormone 0.86 uIU/mL (0.27-4.20)
[2020-07-08] MEDS: sodium chloride 0.9% 1,000 ML 999 ML IV (22:04)
[2020-07-08] MEDS: atorvastatin 40 mg Tablet PO (22:08)
[2020-07-08 22:35] VITALS: BP 154/91; PULSE 104; RESP 19; O2SAT 97
[2020-07-09] VITALS (12 sets, daily range): BP systolic 102–139; BP diastolic 53–82; PULSE 97–112; RESP 17–20; TEMP 36.4–37.2; O2SAT 91–101
[2020-07-09] MEDS: sodium chloride 0.9% 1,000 ML 50 ML IV (01:05)
[2020-07-09 02:27] LABS: Iron 102 ug/dL (59-158); Percent Saturation 69.3 % (20-50); Total Iron Binding Capacity 147 mcg/dl; Unsaturated Iron Binding 45 ug/dL (112-347)
[2020-07-09 05:26] LABS: Hematocrit 30.5 % (42.0-52.0); Hemoglobin 9.6 g/dL (11.7-16.6); Mean Corpuscular HGB Conc 31.5 g/dL (30.0-36.0); Mean Corpuscular Hemoglobin 30.4 pg (28.0-34.0); Mean Corpuscular Volume 96.5 fL (80-94); Mean Platelet Volume 8.8 fL (7.4-10.4); Platelet Count 91 10^3/cmm (130-400); Red Blood Count 3.16 10^6/uL (4.1-5.3); Red Cell Distribution Width 17.2 % (12.1-15.1); White Blood Count 4.1 10^3/uL (4.0-10.0)
[2020-07-09 05:38] LABS: Estmated Average Glucose 123; Hemoglobin A1C 5.9 % (4.0-6.0)
[2020-07-09 05:49] LABS: Chol HDL Ratio 4.31 mg/dL (1.0-5.00); Cholesterol 138 mg/dL (0-200); HDL Cholesterol 32 mg/dL (60-100); LDL Cholesterol Calculated 49 mg/dL (50-129); Triglycerides 287 mg/dL (0-150); VLDL Cholestrol Calculation 57 mg/dL (0-30)
[2020-07-09] MEDS: metoprolol succinate ER (24 HR) 25 mg Tablet 12.5 MG PO (05:57)
[2020-07-09 05:58] LABS: Alanine Aminotransferase 116 U/L (0-41); Albumin Level 3.1 g/dL (3.5-5.2); Alkaline Phosphatase 464 IU/L (40-130); Anion Gap 19.2 (5-19); Aspartate Amino Transferase 294 U/L (0-40); Blood Urea Nitrogen 34 mg/dL (8-23); Calcium 8.2 mg/dL (8.5-10.5); Carbon Dioxide 19 mmol/L (22-29); Chloride 107 mmol/L (98-107); Globulin 2.2 g/dL (1.3-4.6); Glucose 93 mg/dL (65-115); Magnesium 2.3 mg/dL (1.7-2.3); Osmolality Calculated 289 mOsm/kg (285-295); Phosphorus 2.8 mg/dL (2.5-4.5); Potassium 4.2 mmol/L (3.5-5.1); Sodium 141 mmol/L (136-145); Total Bilirubin 0.8 mg/dL (0.15-1.2); Total Protein 5.3 g/dL (6.6-8.7)
[2020-07-09 07:06] LABS: Slide Review Slide Review Perform
[2020-07-09 07:20] LABS: Absolute Neutrophil 2.5 10^3/cmm (1.4-6.5); Absolute Segmented Neutrophil 1.6 10/cmm (1.6-7.1); Band Neutrophils Absolute 0.9 10^3/cmm (0.0-1.2); Corrected White Blood Count 3.9 10^3/cmm (4.8-10.8); Lymphocytes 28 %; Monocytes Absolute 0.3 10^3/cmm (0.1-0.6); Ovalocytes 1+; Platelet Estimate Decreased (Normal); Poikilocytosis 1+; Segmented Neutrophils 38 %; Total Cells Counted 100 (0-100)
--- NOTE | 2020-07-09 08:47 | PM.PN ---
Subjective Subjective: Interval history: No acute events overnight. Patient has not had any more bowel movement since admission. Hemoglobin has remained stable. Patient has remained hemodynamically stable. Denies having nausea, vomiting. States abdominal pain is little better but still there. Vitals/I&O/Wt Last Vital Signs Temp 97.8 F 07/09/20 07:44 Pulse 97 07/09/20 07:44 Resp 20 H 07/09/20 07:44 BP 118/75 07/09/20 07:44 Pulse Ox 95 07/09/20 07:44 07/08/20 07/09/20 07/09/20 22:59 06:59 14:59 Output Total 0 / 0 Balance 0 / 0 Weight last 48 hrs Weight 76.702 kg Weight 74.389 kg Physical Exam Narrative: EXAM NARRATIVE: General: No acute distress, AO x3, pallor present HEENT: PERRLA, pupils bilaterally equal and reactive Chest: Normal vesicular breath sounds, no added sounds, equal good air entry bilaterally CVS: S1-S2 regular, no murmurs, no tachycardia, no gallops, no rubs Abdomen: Soft, distended, tender in epigastric region, midline well-healed old scar present, no organomegaly, bowel sounds present Neuro: No focal deficits, no facial deformity, AO x3, power 5/5 in all limbs Data : 07/09/20 04:43 07/09/20 04:43 A&P Assessment and plan (1) Blood loss anemia: Status: Acute (2) GI bleed: Status: Acute (3) Chronic use of steroids: Status: Acute (4) Moderate aortic stenosis: Status: Acute (5) ASHD (arteriosclerotic heart disease): Status: Acute (6) Hyperlipidemia: Status: Acute (7) History of colon cancer: Status: Acute (8) Abnormal liver enzymes: Status: Acute Additional A&P Information Blood loss anemia secondary GI bleed: Chronic aspirin and prednisone intake along with history of colon cancer with no colonoscopy more than last 10 years coming in with multiple episodes of melena in last 14 days with a history of stool for occult blood +2 months ago as well. Hemoglobin 10 days ago was 11.4. Today to 9.5. Iron supplementation. Case discussed with Dr. Hayes. Plan to take for schmitz scope tomorrow. Patient is undergoing bowel prep at present. Start patient on clear liquid diet. Monitor hemoglobin every 12 hourly. Protonix 40 mg IV twice daily. Continue with IV fluids with normal saline at 50 cc/h. Patient is hemo-dynamically stable for now. We will transfuse PRBC if hemoglobin falls below 8. Hold aspirin. We will continue prednisone as patient has been chronically on prednisone for a long time. 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 Unfortunately we will have to hold off aspirin given active GI bleed. Continue metoprolol, Renolazine, statins. We will hold off on Imdur to prevent from hypotension. Continue to monitor vitals. Telemetry. We will increase the dose of metoprolol 25 mg because of tachycardia. Abnormal liver enzymes: Most likely secondary to metastasis to the liver. Will get right upper quadrant ultrasound. CT abdomen pelvis done on admission not concerning for any acute pathology. Continue other chronic medications including vismodegib. Goals of care: Discussed in detail both with patient and his at bedside. They would want patient to be limited resuscitation. He does not want any mechanical support or chest compressions. Protonix for PUD prophylaxis. SCDs for DVT prophylaxis. No anticoagulation given GI bleed. Attestations Medical Necessity Statement*: GI bleed, acute blood loss anemia Time Spent in Patient Care: Greater than 35 minutes (>than 50% of time spent in counselling and/or direct pt care on unit). Coding Level of Care Code Acute Telephone Worker for Chg Fwd Diagnoses Blood loss anemia D50.0 GI bleed K92.2 Chronic use of steroids Moderate aortic stenosis I35.0 ASHD (arteriosclerotic heart disease) I25.10 Hyperlipidemia E78.5 History of colon cancer Z85.038 Abnormal liver enzymes R74.8
[2020-07-09] MEDS: morphine ER (12 HR) 15 mg Tablet PO (08:49)
[2020-07-09] MEDS: predniSONE 5 mg Tablet PO ×2 (08:49→18:17)
[2020-07-09] MEDS: ranolazine (12HR) 500 mg Tablet PO ×2 (09:13→18:18)
[2020-07-09] MEDS: pantoprazole 40 mg SDV 80 MG IVP (10:28)
--- NOTE | 2020-07-09 11:36 | P.CONIM_ITS ---
Providers/Reason For Consult Consulting Physican/Specialty*: Internal medicine/endoscopy Reason for Consult*: Black tarry stools and steadily dropping hemoglobin. Attending Physician: Iggy Brewer MD Primary Care Provider: Stevie Mullen DO History of Present Illness History of Present Illness Micah Bhandari is a 74 year old male who began to have black tarry stools about 2 weeks ago he also has a fair amount of epigastric pain he also began to have some diarrhea 2 weeks ago. He takes prednisone for metastatic prostate cancer. He also has a history of colon cancer somewhat distantly and states that he has not had a colonoscopy in over 10 years. He stated that he had a partial colon resection in [facility] assumedly over 10 years ago. He does not appear to be on any sort of acid suppression at home. He denies any weight loss but admits to epigastric pain and the black tarry stools. He denies bright red blood per rectum. He admits to general malaise and pain assumedly from his prostate cancer. He is followed by the doctors at the [facility]. His extensive history is reviewed as per his attendings note. Review of Systems General: Reports: 10 or more systems reviewed and unremarkable except in HPI and below Meds/Allergies Home Medications and Allergies Home Medications Medication Instructions Recorded Confirmed Last Taken Type abiraterone 250 mg tablet 1,000 mg PO DAILY 04/29/20 07/08/20 07/08/20 History ascorbic acid (vitamin C) 500 mg 500 mg PO BID cap 04/29/20 07/08/20 05/22/20 History capsule calcium citrate-ergocalciferol 1 tab PO BID tab 04/29/20 07/08/20 05/22/20 History (vitamin D2) 250 mg-100 unit tablet cinnamon bark 500 mg capsule 1,000 mg PO DAILY cap 04/29/20 07/08/20 05/22/20 History flaxseed oil 1,000 mg capsule 1,000 mg PO BID 04/29/20 07/08/20 05/22/20 History garlic 1,000 mg capsule 1,000 mg PO DAILY 04/29/20 07/08/20 04/24/20 History oeguafxh-gwa-vfsoc 200 mcg-lycop 1 tab PO DAILY tab 04/29/20 07/08/20 05/22/20 History 175 mcg-lutei 250 mcg-herb 178 tablet nitroglycerin 0.4 mg sublingual 0.4 mg SUBLINGUAL Q5M PRN 04/29/20 07/08/20 Unknown History tablet potassium gluconate 595 mg (99 mg) 595 mg PO DAILY 04/29/20 07/08/20 05/22/20 History tablet Glucosamine-Chondroitin Complx 1 cap PO BID 05/22/20 07/08/20 05/22/20 History milk thistle 175 mg PO DAILY 05/22/20 07/08/20 05/21/20 History rosuvastatin 10 mg PO BEDTIME 05/22/20 07/08/20 07/07/20 History isosorbide mononitrate 30 mg 15 mg PO BID #90 tab 06/17/20 07/08/20 07/08/20 Rx tablet,extended release 24 hr lisinopril 20 mg tablet 10 mg PO BID #90 tab 06/17/20 07/08/20 07/08/20 Rx vismodegib 150 mg capsule 150 mg PO DAILY 06/17/20 07/08/20 07/08/20 History metoprolol succinate 25 mg 12.5 mg PO QAM #90 tab 06/19/20 07/08/20 07/08/20 Rx tablet,extended release 24 hr ranolazine 500 mg tablet,extended 500 mg PO BID #90 tab 07/03/20 07/08/20 Unknown Rx release,12 hr leuprolide (3 month) [Eligard (3 22.5 mg SUBCUT Q90D 07/08/20 07/08/20 Unknown History month)] prednisone 5 mg PO BID 07/08/20 07/08/20 07/08/20 History Allergies Allergy/AdvReac Type Severity Reaction Status Date / Time No Known Allergies Allergy Verified 07/02/20 08:43 Current Medications Current Medications Generic Name Dose Route Start Last Admin Trade Name Freq PRN Reason Stop Dose Admin Atorvastatin Calcium 40 mg 07/08/20 21:23 07/08/20 22:08 Lipitor PO 40 mg BEDTIME LAURA Administration Hydromorphone HCl 2 mg 07/08/20 22:02 07/09/20 10:41 Dilaudid Tab PO 2 mg Q6H PRN Administration pain Sodium Chloride 1,000 mls @ 50 mls/hr 07/08/20 21:23 07/09/20 01:05 Sodium Chloride 0.9% IV 50 mls/hr .Q20H LAURA Administration Metoprolol Succinate 12.5 mg 07/09/20 06:00 07/09/20 05:57 Toprol Xl PO 12.5 mg QAM LAURA Administration Morphine Sulfate 15 mg 07/09/20 09:00 07/09/20 08:49 Ms Contin PO 15 mg BID LAURA Administration Non-Formulary Medication 1,000 mg 07/09/20 09:00 07/09/20 09:16 Abiraterone [Zytiga] PO Not Given DAILY LAURA Non-Formulary Medication 150 mg 07/09/20 09:00 07/09/20 09:16 Vismodegib [Erivedge] PO Not Given DAILY LAURA Prednisone 5 mg 07/09/20 09:00 07/09/20 08:49 Prednisone PO 5 mg BID LAURA Administration Ranolazine 500 mg 07/09/20 09:00 07/09/20 09:13 Ranexa PO 500 mg BID LAURA Administration PFSH Acute PFSH: Medical History (Updated 07/09/20 @ 11:43 by Gustavo Hayes MD) ASHD (arteriosclerotic heart disease) [employer]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 30% proximal LM stenosis, 50% distal LM stenosis. Last coronary angiogram 08/2019. BCC (basal cell carcinoma of skin) Heart disease Hyperlipidemia Hypertension Mass Moderate aortic stenosis Murmur Prostate cancer Surgical History (Updated 07/09/20 @ 11:43 by Gustavo Hayes MD) H/O basal cell carcinoma excision H/O circumcision H/O colonoscopy 2009 History of appendectomy History of colon resection 14 inches removed History of testicular surgery Family History Daughter Cancer skin bcc Brother Cancer skin bcc Mother Cancer colon Sister Diabetes Other CAD (coronary artery disease) Denies family history of Anesthesia complication Bleeding disorder Social History Smoking and tobacco status: former smoker Alcohol intake: never Household members: spouse Marital status: Current occupational status: retired History of recent travel: No Vitals/I&O/Wt Last Vital Signs Temp 98.4 F 07/09/20 11:14 Pulse 103 H 09/15/20 11:14 Resp 20 H 07/09/20 11:14 BP 134/78 07/09/20 11:14 Pulse Ox 96 07/09/20 11:14 07/08/20 07/09/20 07/09/20 22:59 06:59 14:59 Output Total 0 / 0 120 / 120 Balance 0 / 0 -120 / -120 Weight last 48 hrs Weight 169 lb 1.6 oz Weight 164 lb Physical Exam GI: COMMON NORMALS: Normal to inspection, nondistended, normoactive bowel sounds present and Soft to palpation PALPATION: Yes Soft to palpation OTHER: He is a fair amount of epigastric pain without organomegaly. He has a fibrotic feeling mass in the epigastrium. His CT scan was unremarkable however. A&P Assessment and plan (1) Blood loss anemia: His blood loss sounds peptic in nature, however he does have a distant history of colon cancer and has not been examined in some time. We will proceed with panendoscopy to evaluate for bleeding. Status: Acute (2) History of colon cancer: Given his anemia and his distant screening, we will proceed with diagnostic and screening colonoscopy here on this hospitalization Status: Acute Coding Level of Care Code Acute Painter Interior Finish for g Fwd Exam Problem Focused Diagnoses Blood loss anemia D50.0 History of colon cancer Z85.038 Comment Please allow Rhina Ruth my cupboard builder to handle the billing and coding for this consult.
[2020-07-09] MEDS: metoprolol tartrate 25 mg Tablet PO (14:58)
[2020-07-09 16:18] LABS: Hematocrit 30.4 % (42.0-52.0); Hemoglobin 9.5 g/dL (11.7-16.6)
[2020-07-09] MEDS: ferrous gluconate 324 mg Tablet PO (18:18)
[2020-07-09] MEDS: atorvastatin 40 mg Tablet PO (21:25)
[2020-07-09] MEDS: pantoprazole 40 mg SDV IVP (21:29)
[2020-07-10] VITALS (12 sets, daily range): BP systolic 98–122; BP diastolic 58–77; PULSE 88–110; RESP 16–22; TEMP 36.4–36.9; O2SAT 91–100; BMI 27.3
[2020-07-10] MEDS: magnesium citrate Btl 296 mL PO ×2 (02:10→09:53)
[2020-07-10 02:24] LABS: Basophils % 0.5 %; Eosinophils % 0.3 %; Hematocrit 30.5 % (42.0-52.0); Hemoglobin 9.5 g/dL (11.7-16.6); Lymphocytes # 0.6 10^3/uL (0.8-4.8); Lymphocytes % 15.4 %; Mean Corpuscular HGB Conc 31.1 g/dL (30.0-36.0); Mean Corpuscular Hemoglobin 30.2 pg (28.0-34.0); Mean Corpuscular Volume 96.8 fL (80-94); Mean Platelet Volume 8.9 fL (7.4-10.4); Monocytes # 0.4 10^3/uL (0.2-0.9); Monocytes % 9.4 %; Neutrophils # 2.59 10^3/uL (1.8-7.7); Neutrophils % 67.9 %; Nucleated Red Blood Cells # 0.2 /100WBC; Platelet Count 88 10^3/cmm (130-400); Red Blood Count 3.15 10^6/uL (4.1-5.3); Red Cell Distribution Width 17.4 % (12.1-15.1); White Blood Count 3.8 10^3/uL (4.0-10.0)
[2020-07-10 02:41] LABS: Alanine Aminotransferase 114 U/L (0-41); Albumin Level 3.1 g/dL (3.5-5.2); Alkaline Phosphatase 444 IU/L (40-130); Anion Gap 19.5 (5-19); Aspartate Amino Transferase 328 U/L (0-40); Blood Urea Nitrogen 30 mg/dL (8-23); Calcium 8.3 mg/dL (8.5-10.5); Carbon Dioxide 20 mmol/L (22-29); Chloride 107 mmol/L (98-107); Globulin 2.2 g/dL (1.3-4.6); Glucose 96 mg/dL (65-115); Osmolality Calculated 291 mOsm/kg (285-295); Potassium 4.5 mmol/L (3.5-5.1); Sodium 142 mmol/L (136-145); Total Bilirubin 1.1 mg/dL (0.15-1.2); Total Protein 5.3 g/dL (6.6-8.7)
[2020-07-10 03:30] LABS: Slide Review Slide Review Perform
[2020-07-10] MEDS: metoprolol succinate ER (24 HR) 25 mg Tablet PO (05:54)
--- NOTE | 2020-07-10 08:00 | PC.NURSE ---
Upon shift change, this RN was notified by Ashley Gaitan LPN that an order for bowel prep was missed d/t the instructions being imbedded within an order set instead of an actual order. He states this was found around 0100 on 07/10 and Magnesium Citrate was administered at 0200. I called and spoke with Dr. Hayes's nurse, Loc Camara LPN, and informed her of this incident. She verbalizes understanding and states she will call back with instructions.
--- NOTE | 2020-07-10 08:24 | PC.NURSE ---
I received a return call from Loc Camara LPN stating that she spoke with Dr. Hayes and he gave a verbal order to continue bowel prep with another bottle of Magnesium Citrate and Fleets Enemas until a BM is passed. I spoke with Gopi Pena LPN, primary nurse for this patient and informed her of this. Updated orders added at this time.
[2020-07-10] MEDS: Fleet Enema 133 mL Enema PR (09:54)
[2020-07-10] MEDS: pantoprazole 40 mg SDV IVP (10:31)
--- NOTE | 2020-07-10 11:12 | PC.NURSE ---
Tap water enemas given x 2 as ordered. Clear orange colored output noted with few flecks of red colored matter. Notified Primary Nurse, Iesha, that the patients BM remains in the toilet so she can observe it.
--- NOTE | 2020-07-10 13:05 | ANES.PREANE2 ---
Pre-Anesthetic Assessment Pre-Anesthetic Assessment: Height/Weight: Height 1.68 m Weight 76.702 kg Temp Pulse Resp BP Pulse Ox 98.2 F 101 H 16 120/70 93 07/10/20 11:31 07/10/20 11:31 07/10/20 11:31 07/10/20 11:31 07/10/20 11:31 Proposed Procedure: Operation Date: 07/10/20 11:45 Proposed Procedures p EGD(Not Applicable) - Gustavo Hayes MD s Colonoscopy(Not Applicable) - Gustavo Hayes MD Familial anesthetic complications: PONV Was Beta Alee taken within 24 hours: N/A Last intake: Intake Last Liquid Date 07/08/20 Last Liquid Time 08:00 Last Solid Date 07/08/20 Last Solid Time 08:00 Social: Social History: No alcohol and No tobacco Exam: Pre-Anes Outpt Exam: alert, oriented x 3, clear to auscultation bilaterally and regular rate & rhythm Additional Exam Findings (including area of procedure): murmur Airway: Cervical ROM: WNL MP: 3 Dentition: Full Pulmonary: Pulmonary: SOB CV/HEM: CV/HEM: CAD and HTN Comments: Mod aortic stenosis patient states he has had murmur since childhood SEVERE cad requiring CABG - but life expectancy 1-3 years d/t metastatic prostate cancer, so no interventions are to be done GI: Comments: colon resection Musc/skel: Comments: bone mets to ribs Anesthetic Plan: ASA status: 3 Anesthesia: MAC Risk of > 500 ml blood loss (7ml/kg in children): No Meds/Allergies Current Medications: Current Medications Generic Name Dose Route Start Last Admin Trade Name Freq PRN Reason Stop Dose Admin Atorvastatin Calci um 40 mg 07/08/20 21:23 07/09/20 21:25 Lipitor PO 40 mg BEDTIME LAURA Administration Ferrous Gluconate 324 mg 07/09/20 18:00 07/10/20 10:29 Ferrous Gluconat e PO Not Given BIDWM LAURA Metoprolol Succina te 25 mg 07/10/20 06:00 07/10/20 05:54 Toprol Xl PO 25 mg QAM LAURA Administration Non-Formulary Medi cation 1,000 mg 07/09/20 09:00 07/10/20 10:29 Abiraterone [Zyt iga] PO Not Given DAILY LAURA Non-Formulary Medi cation 150 mg 07/09/20 09:00 07/10/20 10:30 Vismodegib [Eriv edge] PO Not Given DAILY LAURA Pantoprazole Sodiu m 40 mg 07/09/20 20:00 07/10/20 10:31 Protonix IVP 40 mg Q12H LAURA Administration Prednisone 5 mg 07/09/20 09:00 07/10/20 10:29 Prednisone PO Not Given BID LAURA Ranolazine 500 mg 07/09/20 09:00 07/10/20 10:29 Ranexa PO Not Given BID LAURA PFSH Anesthesia PFSH: Medical History (Updated 07/09/20 @ 14:51 by Iggy Brewer MD) ASHD (arteriosclerotic heart disease) [employer]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 30% proximal LM stenosis, 50% distal LM stenosis. Last coronary angiogram 08/2019. BCC (basal cell carcinoma of skin) Heart disease Hyperlipidemia Hypertension Mass Moderate aortic stenosis Murmur Prostate cancer Surgical History (Updated 07/09/20 @ 11:43 by Gustavo Hayes MD) H/O basal cell carcinoma excision H/O circumcision H/O colonoscopy 2009 History of appendectomy History of colon resection 14 inches removed History of testicular surgery Family History Daughter Cancer skin bcc Brother Cancer skin bcc Mother Cancer colon Sister Diabetes Other CAD (coronary artery disease) Denies family history of Anesthesia complication Bleeding disorder Social History Smoking and tobacco status: former smoker Alcohol intake: never Household members: spouse Marital status: Current occupational status: retired History of recent travel: No Data Anesthesia CBC & Chem 7: 07/10/20 02:00 07/10/20 02:00 Other Labs: Laboratory Results - last 48 hr 07/08/20 07/08/20 07/08/20 15:05 15:05 15:05 WBC 4.8 Corrected WBC RBC 3.54 L Hgb 10.6 L Hct 33.3 L MCV 94.1 H MCH 29.9 MCHC 31.8 RDW 16.8 H Plt Count 110 L MPV 8.3 Neut % (Auto) 69.0 Lymph % (Auto) 16.9 Edmunds % (Auto) 8.3 Eos % (Auto) 0.4 Baso % (Auto) 0.4 Neut # (Auto) 3.31 Lymph # (Auto) 0.8 Edmunds # (Auto) 0.4 Eos # (Auto) 0.0 Baso # (Auto) 0.0 Nucleated RBC % (auto) 4.2 Total Counted Absolute Neutrophils Segmented Neutrophils Abs Segm Neuts (Man) Band Neutrophils Abs Band Neuts (Man) Lymphocytes (Manual) Monocytes (Manual) Absolute Monocytes Metamyelocytes Nucleated RBCs Nucleated RBCs # 0.2 Platelet Estimate Poikilocytosis Ovalocytes PT 14.40 INR 1.11 Sodium 140 Potassium 4.1 Chloride 103 Carbon Dioxide 20 L Anion Gap 21.1 H BUN 39 H Creatinine 1.1 GFR Calculation Not Reportable Glucose 127 H Estimat Average Glucose Hemoglobin A1c Calculated Osmolality 289 Calcium 8.3 L Phosphorus Magnesium Iron TIBC % Saturation Unsat Iron Binding Total Bilirubin 0.9 AST 314 H ALT 146 H Alkaline Phosphatase 470 H Total Protein 6.0 L Albumin 3.7 Globulin 2.3 Triglycerides Cholesterol LDL Cholesterol, Calc Total VLDL Cholesterol HDL Cholesterol Cholesterol/HDL Ratio Lipase 64 H TSH Blood Type Rho(D) Type Antibody Screen 07/08/20 07/08/20 07/08/20 15:05 15:05 17:12 WBC Corrected WBC RBC Hgb 9.5 L Hct 30.0 L MCV MCH MCHC RDW Plt Count MPV Neut % (Auto) Lymph % (Auto) Edmunds % (Auto) Eos % (Auto) Baso % (Auto) Neut # (Auto) Lymph # (Auto) Edmunds # (Auto) Eos # (Auto) Baso # (Auto) Nucleated RBC % (auto) Total Counted Absolute Neutrophils Segmented Neutrophils Abs Segm Neuts (Man) Band Neutrophils Abs Band Neuts (Man) Lymphocytes (Manual) Monocytes (Manual) Absolute Monocytes Metamyelocytes Nucleated RBCs Nucleated RBCs # Platelet Estimate Poikilocytosis Ovalocytes PT INR Sodium Potassium Chloride Carbon Dioxide Anion Gap BUN Creatinine GFR Calculation Glucose Estimat Average Glucose Hemoglobin A1c Calculated Osmolality Calcium Phosphorus Magnesium Iron 102 TIBC 147 % Saturation 69.3 H Unsat Iron Binding 45 L Total Bilirubin AST ALT Alkaline Phosphatase Total Protein Albumin Globulin Triglycerides Cholesterol LDL Cholesterol, Calc Total VLDL Cholesterol HDL Cholesterol Cholesterol/HDL Ratio Lipase TSH 0.86 Blood Type Rho(D) Type Antibody Screen 07/08/20 07/09/20 07/09/20 18:27 04:43 04:43 WBC 4.1 Corrected WBC 3.9 L RBC 3.16 L Hgb 9.6 L Hct 30.5 L MCV 96.5 H MCH 30.4 MCHC 31.5 RDW 17.2 H Plt Count 91 L MPV 8.8 Neut % (Auto) Lymph % (Auto) Not Reportable Edmunds % (Auto) Not Reportable Eos % (Auto) Baso % (Auto) Neut # (Auto) Lymph # (Auto) Not Reportable Edmunds # (Auto) Not Reportable Eos # (Auto) Baso # (Auto) Nucleated RBC % (auto) Total Counted 100 Absolute Neutrophils 2.5 Segmented Neutrophils 38 Abs Segm Neuts (Man) 1.6 Band Neutrophils 23.0 Abs Band Neuts (Man) 0.9 Lymphocytes (Manual) 28 Monocytes (Manual) 8.0 Absolute Monocytes 0.3 Metamyelocytes 3.0 Nucleated RBCs 4.0 H Nucleated RBCs # Platelet Estimate Decreased Poikilocytosis 1+ H Ovalocytes 1+ H PT INR Sodium 141 Potassium 4.2 Chloride 107 Carbon Dioxide 19 L Anion Gap 19.2 H BUN 34 H Creatinine 1.2 GFR Calculation Not Reportable Glucose 93 Estimat Average Glucose Hemoglobin A1c Calculated Osmolality 289 Calcium 8.2 L Phosphorus 2.8 Magnesium 2.3 Iron TIBC % Saturation Unsat Iron Binding Total Bilirubin 0.8 AST 294 H ALT 116 H Alkaline Phosphatase 464 H Total Protein 5.3 L Albumin 3.1 L Globulin 2.2 Triglycerides Cholesterol LDL Cholesterol, Calc Total VLDL Cholesterol HDL Cholesterol Cholesterol/HDL Ratio Lipase TSH Blood Type O Positive Rho(D) Type Positive Antibody Screen Negative 07/09/20 07/09/20 07/09/20 04:43 04:43 16:07 WBC Corrected WBC RBC Hgb 9.5 L Hct 30.4 L MCV MCH MCHC RDW Plt Count MPV Neut % (Auto) Lymph % (Auto) Edmunds % (Auto) Eos % (Auto) Baso % (Auto) Neut # (Auto) Lymph # (Auto) Edmunds # (Auto) Eos # (Auto) Baso # (Auto) Nucleated RBC % (auto) Total Counted Absolute Neutrophils Segmented Neutrophils Abs Segm Neuts (Man) Band Neutrophils Abs Band Neuts (Man) Lymphocytes (Manual) Monocytes (Manual) Absolute Monocytes Metamyelocytes Nucleated RBCs Nucleated RBCs # Platelet Estimate Poikilocytosis Ovalocytes PT INR Sodium Potassium Chloride Carbon Dioxide Anion Gap BUN Creatinine GFR Calculation Glucose Estimat Average Glucose 123 Hemoglobin A1c 5.9 Calculated Osmolality Calcium Phosphorus Magnesium Iron TIBC % Saturation Unsat Iron Binding Total Bilirubin AST ALT Alkaline Phosphatase Total Protein Albumin Globulin Triglycerides 287 H Cholesterol 138 LDL Cholesterol, Calc 49 L Total VLDL Cholesterol 57 H HDL Cholesterol 32 L Cholesterol/HDL Ratio 4.31 Lipase TSH Blood Type Rho(D) Type Antibody Screen 07/10/20 07/10/20 02:00 02:00 WBC 3.8 L Corrected WBC RBC 3.15 L Hgb 9.5 L Hct 30.5 L MCV 96.8 H MCH 30.2 MCHC 31.1 RDW 17.4 H Plt Count 88 L MPV 8.9 Neut % (Auto) 67.9 Lymph % (Auto) 15.4 Edmunds % (Auto) 9.4 Eos % (Auto) 0.3 Baso % (Auto) 0.5 Neut # (Auto) 2.59 Lymph # (Auto) 0.6 L Edmunds # (Auto) 0.4 Eos # (Auto) 0.0 Baso # (Auto) 0.0 Nucleated RBC % (auto) 5.0 Total Counted Absolute Neutrophils Segmented Neutrophils Abs Segm Neuts (Man) Band Neutrophils Abs Band Neuts (Man) Lymphocytes (Manual) Monocytes (Manual) Absolute Monocytes Metamyelocytes Nucleated RBCs Nucleated RBCs # 0.2 Platelet Estimate Poikilocytosis Ovalocytes PT INR Sodium 142 Potassium 4.5 Chloride 107 Carbon Dioxide 20 L Anion Gap 19.5 H BUN 30 H Creatinine 0.9 GFR Calculation Not Reportable Glucose 96 Estimat Average Glucose Hemoglobin A1c Calculated Osmolality 291 Calcium 8.3 L Phosphorus Magnesium Iron TIBC % Saturation Unsat Iron Binding Total Bilirubin 1.1 AST 328 H ALT 114 H Alkaline Phosphatase 444 H Total Protein 5.3 L Albumin 3.1 L Globulin 2.2 Triglycerides Cholesterol LDL Cholesterol, Calc Total VLDL Cholesterol HDL Cholesterol Cholesterol/HDL Ratio Lipase TSH Blood Type Rho(D) Type Antibody Screen Cardiac Studies: No Data to Display
[2020-07-10] MEDS: sodium chloride 0.9% 1,000 ML 30 ML IV (13:06)
--- NOTE | 2020-07-10 13:42 | PM.PN ---
Subjective Subjective: Interval history: No documented bowel movements overnight. Patient is under bowel prep for EGD and colonoscopy today. Patient still has not had a bowel movement. Denies of any nausea, vomiting, headache. Patient's hemodynamics and vitals and hemoglobin has remained stable. Vitals/I&O/Wt Last Vital Signs Temp 97.6 F 07/10/20 12:40 Pulse 110 H 07/10/20 12:40 Resp 18 07/10/20 12:40 BP 107/69 07/10/20 12:40 Pulse Ox 95 07/10/20 12:40 07/09/20 07/10/20 07/10/20 22:59 06:59 14:59 Intake Total 180 / 180 Output Total 250 / 370 300 / 670 Balance -70 / -190 -300 / -490 Weight last 48 hrs Weight 76.702 kg Weight 76.702 kg Weight 74.389 kg Physical Exam Narrative: EXAM NARRATIVE: General: No acute distress, AO x3, pallor present HEENT: PERRLA, pupils bilaterally equal and reactive Chest: Normal vesicular breath sounds, no added sounds, equal good air entry bilaterally CVS: S1-S2 regular, no murmurs, no tachycardia, no gallops, no rubs Abdomen: Soft, distended, tender in epigastric region, midline well-healed old scar present, no organomegaly, bowel sounds present Neuro: No focal deficits, no facial deformity, AO x3, power 5/5 in all limbs Data : 07/10/20 02:00 07/10/20 02:00 A&P Assessment and plan (1) Blood loss anemia: Status: Acute (2) GI bleed: Status: Acute (3) Chronic use of steroids: Status: Acute (4) Moderate aortic stenosis: Status: Acute (5) ASHD (arteriosclerotic heart disease): Status: Acute (6) Hyperlipidemia: Status: Acute (7) History of colon cancer: Status: Acute (8) Abnormal liver enzymes: Status: Acute Additional A&P Information Blood loss anemia secondary GI bleed: Chronic aspirin and prednisone intake along with history of colon cancer with no colonoscopy more than last 10 years coming in with multiple episodes of melena in last 14 days with a history of stool for occult blood +2 months ago as well. Hemoglobin 10 days ago was 11.4. Hb stable. Iron supplementation. Case discussed with Dr. Hayes. Keep n.p.o. Plan for EGD and colonoscopy later in the day today. Monitor hemoglobin every 12 hourly. Protonix 40 mg IV twice daily. Continue with IV fluids with normal saline at 50 cc/h. Postprocedure can start the patient on diet again and discontinue fluids accordingly. Patient is hemo-dynamically stable for now. We will transfuse PRBC if hemoglobin falls below 8. Hold aspirin. We will continue prednisone as patient has been chronically on prednisone for a long time. CAD: Patient is chest pain-free. Recent angiogram done at outside hospital in August 2019 revealing 30% proximal left main stenosis, 50% distal left main stenosis, 20% diffuse stenosis of the LAD, 50% ramus, proximal circumflex SENIOR TECHNICAL ARCHITECT, proximal RCA 100% SENIOR TECHNICAL ARCHITECT, distal RCA filling from collaterals, large OM branch filling from left to left collaterals also supplying LV apex. Unfortunately we will have to hold off aspirin given active GI bleed. Continue metoprolol, Renolazine, statins. We will hold off on Imdur to prevent from hypotension. Continue to monitor vitals. Telemetry. We will increase the dose of metoprolol 25 mg because of tachycardia. Abnormal liver enzymes: Most likely secondary to metastasis to the liver. Will get right upper quadrant ultrasound. CT abdomen pelvis done on admission not concerning for any acute pathology. Liver enzymes stable. Continue other chronic medications including vismodegib. Goals of care: Discussed in detail both with patient and his at bedside. They would want patient to be limited resuscitation. He does not want any mechanical support or chest compressions. Protonix for PUD prophylaxis. SCDs for DVT prophylaxis. No anticoagulation given GI bleed. Attestations Medical Necessity Statement*: GI bleed, anemia Time Spent in Patient Care: Greater than 35 minutes (>than 50% of time spent in counselling and/or direct pt care on unit). 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
[2020-07-10] MEDS: ranolazine (12HR) 500 mg Tablet PO (19:14)
[2020-07-10] MEDS: predniSONE 5 mg Tablet PO (19:14)
[2020-07-10] MEDS: ferrous gluconate 324 mg Tablet PO (19:14)
--- NOTE | 2020-07-10 19:39 | PC.NURSE ---
Dr Brewer advanced diet to full liquid since pt is tolerating clear liquids.
--- NOTE | 2020-07-10 19:40 | PC.NURSE ---
Pt has been slightly confused at times after having EGD and Colonoscopy, pt is pleasant, and resting most of the day after the procedure. Pt has tolerated a clear liquid and advancing to full liquid.
[2020-07-10 21:00] LABS: Coronavirus Lab Test PTC Negative
[2020-07-11] VITALS: BP 120/79; PULSE 107; RESP 22; TEMP 36.4; O2SAT 94
[2020-07-11 04:00] VITALS: BP 111/70; PULSE 99; RESP 18; TEMP 36.7; O2SAT 96
[2020-07-11] MEDS: metoprolol succinate ER (24 HR) 25 mg Tablet PO (05:01)
[2020-07-11 07:39] VITALS: BP 90/56; PULSE 104; RESP 16; TEMP 36.6; O2SAT 96
--- NOTE | 2020-07-11 08:10 | ANE.PACU2 ---
Inpatient post-anesthesia follow up: Airway intact: Yes Vital signs: Temperature 97.9 F Pulse Rate [Left] 88 Pulse Rate 104 Respiratory Rate 16 Blood Pressure [Le ft Arm] 107/63 Blood Pressure 90/56 Pulse Oximetry 96 Oxygen Delivery Me thod [ Room Air Current Rate & Del diaz] Oxygen Delivery Me thod Room Air Oxygen Flow Rate 2 Fraction of Inspir ed Oxygen Hydration adequate: Yes Nausea and vomiting: No Pain level: 1 Mental status: Baseline
[2020-07-11] MEDS: pantoprazole 40 mg SDV IVP (09:00)
--- NOTE | 2020-07-11 09:05 | PC.SOCIAL ---
IMM Page 2 of IMM explained to and signed by patient. He verbalizes understanding. Initialed, dated, and timed and placed in chart. Copy provided to patient.
[2020-07-11] MEDS: predniSONE 5 mg Tablet PO (10:00)
[2020-07-11] MEDS: ranolazine (12HR) 500 mg Tablet PO (10:00)
[2020-07-11] MEDS: ferrous gluconate 324 mg Tablet PO (10:00)
--- NOTE | 2020-07-11 11:04 | P.DS_ITS ---
Discharge Providers Date of Admission: 07/08/20 17:59 Date of Discharge: July 11, 2020 Attending Provider at Admission: Iggy Brewer MD Attending Provider at Discharge: Iggy Brewer MD Consults: Dr. Hayes Primary Care Provider: Stevie Mullen DO Diagnoses at Discharge Discharge Diagnosis (1) Blood loss anemia: Status: Acute (2) GI bleed: Status: Acute (3) Chronic use of steroids: Status: Acute (4) Moderate aortic stenosis: Status: Acute (5) ASHD (arteriosclerotic heart disease): Status: Acute Problem details: VALVE REPAIRER RECLAMATION circumflex and RCA with collaterals. 30% proximal LM stenosis, 50% distal LM stenosis. Last coronary angiogram 08/2019. 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 Coronary angiogram done in August 2019 revealing 30% proximal left main stenosis, 50% distal left main stenosis, 20% diffuse stenosis of the LAD, 50% ramus, proximal circumflex VALVE REPAIRER RECLAMATION, proximal RCA 100% VALVE REPAIRER RECLAMATION, distal RCA filling from collaterals, large OM branch filling from left to left collaterals also supplying LV apex. He presented to the ER today complaining of abdominal pain. Patient states he has been having bloody bowel movements for last 2 weeks with diarrhea and melena continuing for last 2 weeks as well. He is denying of any nausea, vomiting. He is complaining of mild dizziness and difficulty in breathing on exertion. He denies of him taking any NSAIDs. He thinks he had colonoscopy over 10 years ago and is not sure what the results were. As per the patient he stool for occult blood 2 months ago was positive for which at that time they had stopped the aspirin and has been taking aspirin on and off for last 2 to 3 weeks now. Blood work in the ER showed hemoglobin of 9.5, the white count of 4.8, creatinine of 1.1, BUN of 39, sodium of 140, AST of 314, ALT of 146, alkaline phosphatase of 470. His hemoglobin 10 days ago was 11.4. He was admitted to the hospital and hemoglobin was monitored. Dr. Hayes was consulted for possible endoscopy. Because patient has not had colonoscopy in last 10 years with his history of colon cancer in the past he underwent schmitz scope on July 10. Endoscopy was consistent with multiple gastric erosions and chronic duodenal ulcer with stigmata of bleeding from the erosions. Colonoscopy was within normal limits. It is thought that patient's bleeding from the erosion is most likely because of chronic steroid use along with baby aspirin. Unfortunately steroids cannot be stopped because without that patient's blood pressure will drop and it is important for him from prostate cancer point of view. Patient has been asked to stop aspirin for next 2 weeks. During hospitalization his hemoglobin remained stable and did not require any blood transfusion. Because of borderline blood pressures lisinopril has been withheld for now. He is advised to follow-up with his primary care provider in next 1 week to repeat CBC. Aspirin is been stopped for next 2 weeks at least. Patient's case was discussed with his outpatient senior office assistant Dr. Denton and aspirin has been changed to Plavix. He is advised to start Plavix in 2 weeks. He is advised to check his hemoglobin 1 week after starting Plavix. He has been discharged in hemodynamically stable condition on oral iron supplementation with all the above set of devices. Physical Exam Narrative: EXAM NARRATIVE: General: No acute distress, AO x3, pallor present HEENT: PERRLA, pupils bilaterally equal and reactive Chest: Normal vesicular breath sounds, no added sounds, equal good air entry bilaterally CVS: S1-S2 regular, no murmurs, no tachycardia, no gallops, no rubs Abdomen: Soft, distended, tender in epigastric region, midline well-healed old scar present, no organomegaly, bowel sounds present Neuro: No focal deficits, no facial deformity, AO x3, power 5/5 in all limbs Discharge Data Data Completed and Pending: Completed Studies During Hospitalization Category Date Time Status CT abdomen pelvis w con* [id number] Urge nt Cat Scan 07/08/20 15:02 Completed Labs from last 24 hours 07/09/20 16:00 Nasal/Oral COVID-1 9 PCR Negative Vitals: Last Vital Signs Temp 97.9 F 07/11/20 07:39 Pulse 104 H 07/11/20 07:39 Resp 16 07/11/20 07:39 BP 90/56 09/17/20 07:39 Pulse Ox 96 07/11/20 07:39 Discharge Plan Discharge Patient Disposition: Home Condition: Stable Prescriptions: New ferrous gluconate 324 mg (37.5 mg iron) Tablet 324 mg PO BIDWM Qty: 60 RF: 0 Protonix [address] for susp in packet 40 mg PO BID Qty: 30 RF: 0 Continued ascorbic acid (vitamin C) 500 mg capsule 500 mg PO BID RF: 0 calcium citrate-vitamin D2 250-100 mg-unit tablet 1 tab PO BID RF: 0 cinnamon bark 500 mg capsule 1,000 mg PO DAILY RF: 0 flaxseed oil 1,000 mg capsule 1,000 mg PO BID RF: 0 garlic 1,000 mg capsule 1,000 mg PO DAILY RF: 0 Emmett Multivitamin For Men 200-175-250 mcg tablet 1 tab PO DAILY RF: 0 nitroglycerin 0.4 mg tablet, sublingual 0.4 mg SUBLINGUAL Q5M PRN (Reason: Pain) RF: 0 potassium gluconate 595 mg (99 mg) tablet 595 mg PO DAILY RF: 0 abiraterone [Zytiga] 250 mg tablet 1,000 mg PO DAILY RF: 0 ranolazine 500 mg tablet extended release 12 hr 500 mg PO BID Qty: 90 RF: 2 Erivedge 150 mg capsule 150 mg PO DAILY RF: 0 isosorbide mononitrate 30 mg tablet extended release 24 hr 15 mg PO BID Qty: 90 RF: 3 metoprolol succinate 25 mg tablet extended release 24 hr 12.5 mg PO QAM Qty: 90 RF: 3 prednisone 5 mg Tablet 5 mg PO BID RF: 0 Eligard (3 month) 22.5 mg Syringe 22.5 mg SUBCUT Q90D RF: 0 milk thistle 175 mg Tablet 175 mg PO DAILY RF: 0 rosuvastatin 20 mg Tablet 10 mg PO BEDTIME RF: 0 Glucosamine-Chondroitin Complx Capsule 1 cap PO BID RF: 0 Held lisinopril 20 mg tablet 10 mg PO BID Qty: 90 RF: 3 Hold Instructions: Resume on 07/18/20. Discharge Orders: Discharge Order (Routine); Ordered 07/11/20 Ordered By: Iggy Brewer Referrals: Jonathan Denton MD [Physician] - 08/01/20 9:45 am (appt with Elodia Marin August 01 at [address] Denton Oct 29 at 1515) Stevie Mullen, DO [Primary Care Provider] - 07/18/20 10:00 am (Phone appt 07/[address] Mullen will call you. ) Discharge Diet: Advance as tolerated, Cardiac, Low Salt and GI Soft Discharge Activity: Resume usual activity Patient Instructions: Anemia, Pantoprazole (By mouth), Norethindrone Acetate/Ethinyl Estradiol/Ferrous Fumarate (By mouth), Colorectal Cancer (DC), Iron Rich Diet (DC) Activity Restrictions/Additional Instructions: Please check hemoglobin in 1 week and follow-up with her primary care provider. He should not be taking baby aspirin for next 2 weeks. After starting aspirin/Plavix please check hemoglobin again in 1 week. Please follow-up with Dr. Denton in his office in next 1 month. Most likely your aspirin has to be changed to Plavix because of GI bleed. Discharge Date/Time: 07/11/20 12:35 Discharge Attestations Time Spent in Discharge Care*: greater than 30 min Specific Discharge Activities: Specific discharge activities: educating patient, educating and/or supporting family/caregiver, discussing with pcp/other providers, discussing with casework specialist/social workers/dc planners, documenting/other paperwork and evaluating patient/reviewing data Status at Discharge: Cognitive status at discharge: cognitively intact , Behavioral status at discharge: cooperative , Functional status at discharge: independent ambulation Overall status at discharge: patient is back to baseline Quality Metrics Clinical Quality Measures During this hospital stay, did patient experience: None Coding Level of Care Code Acute Business Technology 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
[2020-07-11 11:52] VITALS: BP 96/62; PULSE 85; RESP 16; TEMP 36.4; O2SAT 94
[2020-07-11 14:00] VITALS: BP 96/62; PULSE 85; RESP 16; TEMP 36.4; O2SAT 94
== END 2020-07-11 12:35 | disposition home or self-care (01) | DRG 378 ==
LOC: ER 19:03 → MEDSURG 20:48
PROVIDERS: Emergency Medicine; Internal Medicine; Admitting Provider Student in an Organized Health Care Education/Training Program; PCP Emergency Medicine Emergency Medical Services; Visit Provider Student in an Organized Health Care Education/Training Program
PROC: 0DJ08ZZ Inspection of Upper Intestinal Tract, Via Natural or Artificial Opening Endoscopic (ICD-10-PCS; CPT 43235; principal; 2020-07-10 11:45)
PROC: 0DJD8ZZ Inspection of Lower Intestinal Tract, Via Natural or Artificial Opening Endoscopic (ICD-10-PCS; CPT 45378; 2020-07-10 11:45)
DX: K92.2 Gastrointestinal hemorrhage, unspecified (principal); D62 Acute posthemorrhagic anemia; C79.51 Secondary malignant neoplasm of bone; I35.0 Nonrheumatic aortic (valve) stenosis; I25.10 Atherosclerotic heart disease of native coronary artery without angina pectoris; I10 Essential (primary) hypertension; E78.5 Hyperlipidemia, unspecified; Z85.038 Personal history of other malignant neoplasm of large intestine; C61 Malignant neoplasm of prostate; Z90.49 Acquired absence of other specified parts of digestive tract; Z85.828 Personal history of other malignant neoplasm of skin; Z87.891 Personal history of nicotine dependence
CPT/HCPCS: 12345; 36415; 43235; 45378; 74177; 80053; 80061; 83036; 83540; 83550; 83690; 83735; 84100; 84443; 85007; 85014; 85018; 85025; 85610; 86850; 86900; 87635; 94664; 96375; 99281; C9113; J1170; J2270; J2405; J2704; J7030; J7512; Q9967

== ENCOUNTER 2020-07-12 09:07 | Outpatient (CLI) | payer OTHER, SELFPAY ==
--- NOTE | 2020-07-12 09:30 | USCV_ITS ---
Micah Bhandari Age: 74 Gender: M : 1945 Exam Date: 07/12/2020 09:33 Ordering Phys: Jonathan Denton MD ([email or web address]) Technologist: Sally Farr [place] [facility] [place]ication: worsening sob BP: 117 / 86 HR: 111 Rhythm: Sinus Technical Quality: Fair MEASUREMENTS (Male / Female) Normal Values 2D ECHO LV Diastolic Diameter PLAX 3.2 cm 4.2 - 5.9 / 3.9 - 5.3 cm LV Systolic Diameter PLAX 1.7 cm LV Chamber Size 4.1 cm IVS Diastolic Thickness 1.2 cm 0.6 - 1.0 / 0.6 - 0.9 cm IVS Systolic Thickness 1.2 cm LVPW Diastolic Thickness 1.5 cm 0.6 - 1.0 / 0.6 - 0.9 cm LVPW Systolic Thickness 1.4 cm RV Chamber Size 2.8 cm LVOT Diameter 2.0 cm LV Ejection Fraction 2D Teich 79.0 % LV Ejection Fraction MOD 2C 52.4 % LV Ejection Fraction 2C AL 55.8 % LA Diameter 3.3 cm LA Width 2.9 cm LA Height 3.7 cm RA Width 2.7 cm RA Height 3.7 cm Aorta at Sinotubular Diameter 3.1 cm M-MODE LV Diastolic Diameter MM 4.7 cm 4.2 - 5.9 / 3.9 - 5.3 cm LV Systolic Diameter MM 2.9 cm LV Ejection Fraction MM Teich 69.0 % IVS Diastolic Thickness MM 0.8 cm 0.6 - 1.0 / 0.6 - 0.9 cm IVS Systolic Thickness MM 1.6 cm LVPW Diastolic Thickness MM 1.3 cm 0.6 - 1.0 / 0.6 - 0.9 cm LVPW Systolic Thickness MM 1.3 cm RV Diastolic Diameter MM 1.3 cm Aortic Annulus Diameter 3.9 cm LA Ao Ratio MM 0.8 MV E Point Septal Separation 0.8 cm DOPPLER AV Peak Velocity 240.0 cm/s LVOT Peak Velocity 85.0 cm/s AV Area Cont Eq vti 1.4 cm squared AV Area Cont Eq pk 1.1 cm squared MV Area PHT 11.0 cm squared Mitral E to A Ratio 0.4 MV E' Velocity 10.0 cm/s Mitral E to MV E' Ratio 7.0 Mitral E to LV E' Lateral Ratio 5.7 Mitral E to LV E' Septal Ratio 8.9 TR Peak Velocity 204.2 cm/s TR Peak Gradient 16.7 mmHg TR Mean Velocity 134.1 cm/s TR Mean Gradient 8.5 mmHg TR Velocity Time Integral 46.4 cm TV Peak E Velocity 86.0 cm/s Right Atrial Pressure 3.0 mmHg Pulmonary Artery Systolic Pressu 19.7 mmHg PV Peak Velocity 82.0 cm/s RV Acceleration Time 0.1 s RV Ejection Time 0.2 s RV AcT/ET 0.2 FINDINGS Left Ventricle Normal left ventricular cavity size. Moderate left ventricular hypertrophy. Normal left ventricular systolic function. Left ventricular ejection fraction is estimated at 60 %. Due to tachycardia diastolic function cannot be assessed accurately. Right Ventricle The right ventricle is normal in size and function. Right Atrium The right atrium is normal in size. Left Atrium The left atrium is normal in size. Mitral Valve Structurally normal mitral valve without significant stenosis or prolapse. There is no mitral regurgitation. Aortic Valve Severe aortic valve calcification. Moderate aortic valve stenosis, mean gradient 9 mmHg, GYLNN 1.4 cm squared. Velocity across the aortic valve is 2.4 m/s Tricuspid Valve Structurally normal tricuspid valve without significant stenosis or regurgitation. Pulmonary artery systolic pressure is normal. Pulmonic Valve Structurally normal pulmonic valve without significant stenosis. There is no pulmonic regurgitation. Pericardium Normal pericardium without effusion. Aorta Normal ascending aorta dimension. CONCLUSIONS 1-Normal left ventricular cavity size. Moderate left ventricular hypertrophy. Normal left ventricular systolic function. Left ventricular ejection fraction is estimated at 60 %. Due to tachycardia diastolic function cannot be assessed accurately. 2-Severe aortic valve calcification. Moderate aortic valve stenosis, mean gradient 9 mmHg, GLYNN 1.4 cm squared. Velocity across the aortic valve is 2.4 m/s. 3-There is no pericardial effusion. 4-Pulmonary artery systolic pressure is within normal limits. 5-There are no prior echocardiogram studies to compare. Jonathan Denton MD (Electronically Signed) Final Date: 12 July 2020 16:09 S
== END 2020-07-12 09:08 | disposition home or self-care (01) ==
LOC: US 09:08
PROVIDERS: PCP Emergency Medicine Emergency Medical Services; Visit Provider Internal Medicine Cardiovascular Disease
DX: R06.02 Shortness of breath (principal); I35.0 Nonrheumatic aortic (valve) stenosis
CPT/HCPCS: 93306

== ENCOUNTER 2020-07-15 17:03 | Inpatient (IN) | payer OTHER, MEDICARE, SELFPAY ==
[2020-07-15 17:08] VITALS: BP 66/44; PULSE 90; RESP 18; TEMP 36.3; O2SAT 99; BMI 26.4
--- NOTE | 2020-07-15 17:28 | ECG_ITS ---
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 Measurements Intervals [place] Rate: 109 P: AK: -1 QRS: 50 QRSD: 112 T: 3 QT: 325 QTc: 438 Interpretive Statements ATRIAL FIBRILLATION WITH RAPID VENTRICULAR RESPONSE MODERATE INTRAVENTRICULAR CONDUCTION DELAY [110+ ms QRS DURATION] MINIMAL ST DEPRESSION [0.025+ mV ST DEPRESSION] ABNORMAL RHYTHM ECG Compared to ECG 06/29/2020 14:00:08 Intraventricular conduction delay now present ST (T wave) deviation now present Sinus rhythm no longer present Ventricular premature complex(es) no longer present Myocardial infarct finding no longer present Electronically Signed On 07-15-2020 18:59:26 CDT by Ramon Valderrama M.D. [id number]
--- NOTE | 2020-07-15 17:28 | CTR_ITS ---
PROCEDURE INFORMATION: Exam: CT Abdomen And Pelvis With Contrast Exam date and time: 07/15/2020 6:13 PM Age: 74 years old Clinical indication: Abdominal pain; Prior surgery; Surgery date: 3-7 days post-operative; Surgery type: Recent bowel SX; Additional info: Abd pain TECHNIQUE: Imaging protocol: Computed tomography of the abdomen and pelvis with intravenous contrast. Radiation optimization: All CT scans at this facility use at least one of these dose optimization techniques: automated exposure control; mA and/or kV adjustment per patient size (includes targeted exams where dose is matched to clinical indication); or iterative reconstruction. Contrast material: OMNI 300; Contrast volume: 95 ml; Contrast route: INTRAVENOUS (IV); COMPARISON: No relevant prior studies available. RADIATION DOSE METRICS: Total DLP (mGy-cm): 788.23 FINDINGS: There is a moderate left pleural effusion. Liver: There are multifocal masses throughout the right and left lobes of the liver. The largest is a 5 cm mass in the central liver. Gallbladder and bile ducts: Gallstones are identified although there are no CT findings to suggest cholecystitis. Pancreas: Normal. No ductal dilation. Spleen: Normal. No splenomegaly. Adrenals: Normal. No mass. Kidneys and ureters: Normal. No hydronephrosis. Stomach and bowel: There has been partial colectomy. No bowel obstruction or wall thickening.Colonic diverticula are present although there are no CT findings to suggest diverticulitis. Appendix: No evidence of appendicitis. Intraperitoneal space: There is a small amount of fluid in the pelvis. Vasculature: Unremarkable. No abdominal aortic aneurysm. Lymph nodes: There is 2.6 cm adenopathy in the cary hepatis. Bladder: Unremarkable as visualized. Reproductive: Unremarkable as visualized. Bones/joints: There is multifocal osseous sclerosis throughout the visualized thoracic spine, lumbar spine and pelvis.Degenerative change is identified in the spine. Soft tissues: Unremarkable. CT/CT abdomen pelvis w con* [id number] IMPRESSION: There are no acute concerning abnormalities. There is a moderate left pleural effusion. Findings are consistent with metastatic disease to the liver and bones. There is metastatic adenopathy in the cary hepatis. Radiation Dose CTDIVOL = (mGy): DLP = 788.23 (mGy-cm)
--- NOTE | 2020-07-15 17:46 | ED_ITS ---
Documented by User: Jose Maria Zavaleta DO 07/16/20 06:14 HPI - GI Bleed General: Chief complaint: GI Bleed Stated complaint: released 07/11 cnt swallow Time Seen by Provider: 07/15/20 17:28 History of Present Illness: HPI Narrative: 4-year-old male presents emergency room complaining of not eating vomiting. He is not had any hematemesis or coffee-ground emesis is mostly vomiting of food contents he is not been able to swallow very well he was seen here in the hospital and hospitalized a week ago for what was reported to him his stomach ulcers he is taking metoprolol for that. He has not had any hematochezia Keesee or melena either. He does have some underlying medical problems his left rib mass has been biopsied multiple times are still not sure what it is. Additionally he has a history of prostate cancer and coronary artery disease previous colon cancer for which she had a colon resection several years ago. 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 30% proximal LM stenosis, 50% distal LM stenosis. Last coronary angiogram 08/2019. BCC (basal cell carcinoma of skin) Heart disease Hyperlipidemia Hypertension Mass Moderate aortic stenosis Murmur Prostate cancer Surgical History H/O basal cell carcinoma excision H/O circumcision H/O colonoscopy 2009 History of appendectomy History of colon resection 14 inches removed History of testicular surgery Family History Daughter Cancer skin bcc Brother Cancer skin bcc Mother Cancer colon Sister Diabetes Other CAD (coronary artery disease) Denies family history of Anesthesia complication Bleeding disorder Social History Smoking and tobacco status: former smoker Alcohol intake: never Household members: spouse Marital status: Current occupational status: retired History of recent travel: No Physical Exam Const: GENERAL APPEARANCE: cooperative and comfortable ORIENTATION/CONSCIOUSNESS: Yes awake, Yes oriented to person, Yes oriented to place and Yes oriented to time HENMT: COMMON NORMALS: normocephalic, atraumatic and hearing grossly normal bilaterally HEAD & SCALP: normocephalic and atraumatic Eye: COMMON NORMALS: Equal, round and reactive pupils present, EOMs intact bilaterally, conjunctivae normal and no scleral icterus CONJUNCTIVA: Yes conjunctivae normal PUPIL: Yes Equal, round and reactive pupils present Neck/C-Spine: COMMON NORMALS: full ROM, no lymphadenopathy, supple and no JVD Lymph: LYMPHATIC: no lymphadenopathy noted and no lymphedema noted Resp: COMMON NORMALS: normal respiratory effort, No retractions, No use of accessory muscles and clear to auscultation bilaterally AUSCULTATION: clear to auscultation bilaterally Cardio: COMMON NORMALS: no JVD, regular rate, regular rhythm and No murmurs present (Cardio) RATE: regular rate RHYTHM: regular rhythm GI: COMMON NORMALS: Soft to palpation and No hepatosplenomegaly present AUSCULTATION: Yes normoactive bowel sounds PALPATION: Yes Soft to palpation, Yes Tenderness to palpation present (GI) (Diffuse tenderness nonspecific no guarding or rebound), No Guarding due to palpation present (GI) and Yes No hepatosplenomegaly present Extremity: COMMON NORMALS: normal to inspection, capillary refill normal, no clubbing, cyanosis or edema, no calf tenderness and no pedal edema Neuro: SENSORIUM/ORIENTATION: Yes oriented to person, Yes oriented to place and Yes oriented to time Skin: COMMON NORMALS: no rashes or lesions noted GENERAL SKIN EXAM: no rashes or lesions noted Course Vital Signs: Vital signs: Vital Signs Temperature 98.2 F 07/16/20 05:00 Pulse Rate 105 H 07/16/20 05:00 Respiratory Rate 19 H 07/16/20 05:00 Blood Pressure 109/61 07/16/20 05:00 Pulse Oximetry 96 07/16/20 05:00 MDM - GI Bleed MDM Narrative: Medical decision making narrative: Care turned over to Dr. Valente at change of shift. See his notes for definitive diagnosis and disposition. Lab Data: Labs: Lab Results 07/15/20 07/15/20 07/15/20 Range/Units 17:50 17:50 17:50 WBC 4.8 (4.0-10.0) 10^3/ uL RBC 3.56 L (4.1-5.3) 10^6/u L Hgb 10.7 L (11.7-16.6) g/dL Hct 33.0 L (42.0-52.0) % MCV 92.7 (80-94) fL MCH 30.1 (28.0-34.0) pg MCHC 32.4 (30.0-36.0) g/dL RDW 19.3 H (12.1-15.1) % Plt Count 69 L (130-400) 10^3/c mm MPV 9.4 (7.4-10.4) fL Lymph % (Auto) Not Reportable Flagler % (Auto) Not Reportable Lymph # (Auto) Not Reportable Flagler # (Auto) Not Reportable Total Counted 100 (0-100) Atypical Lymphs % 6.0 H (0-5) % Absolute Neutrophi ls 2.9 (1.4-6.5) 10^3/c mm Segmented Neutroph ils 61 % Abs Segm Neuts (Ma n) 2.9 (1.6-7.1) 10/cmm Band Neutrophils 0.0 % Abs Band Neuts (Ma n) 0.0 (0.0-1.2) 10^3/c mm Absolute Lymphocyt es 1.3 (1.2-3.4) 10^3/c mm Lymphocytes (Manua l) 22 % Metamyelocytes 4.0 % Myelocytes 4.0 % Nucleated RBCs 3.0 H (0-1) /100WBC Platelet Estimate Decreased (Normal) Polychromasia Trace Poikilocytosis 1+ H Anisocytosis 1+ H Sodium 133 L (136-145) mmol/L Potassium 5.2 H (3.5-5.1) mmol/L Chloride 101 (98-107) mmol/L Carbon Dioxide 18 L (22-29) mmol/L Anion Gap 19.2 H (5-19) BUN 46 H (8-23) mg/dL Creatinine 2.5 H (0.7-1.2) mg/dL GFR Calculation Not Reportable Glucose 132 H (65-115) mg/dL Calculated Osmolal ity 290 (285-295) mOsm/k g Lactate 3.9 H (0.5-2.2) mmol/L Calcium 8.2 L (8.5-10.5) mg/dL Total Bilirubin 2.7 H (0.15-1.2) mg/dL AST 802 H (0-40) U/L ALT 262 H (0-41) U/L Alkaline Phosphata se 665 H (40-130) IU/L Total Protein 5.6 L (6.6-8.7) g/dL Albumin 3.2 L (3.5-5.2) g/dL Globulin 2.4 (1.3-4.6) g/dL Lipase 100 H (13-60) U/L Urine Color (Yellow) Urine Appearance (CLEAR) Urine pH (5-7) Ur Specific Gravit y (1.005-1.030) Urine Protein (Negative) Urine Glucose (UA) (Normal) Urine Ketones (Negative) Urine Blood (Negative) Urine Nitrate (Negative) Urine Bilirubin (Negative) Urine Urobilinogen (Negative) mg/dL Ur Leukocyte Taina ase (Negative) Urine RBC (0-2) /hpf Urine WBC (0-5) /hpf Ur Squamous Epith Cells (0-5) /hpf Amorphous Sediment /hpf Urine Bacteria (NONE) /hpf 07/15/20 Range/Units 18:25 WBC (4.0-10.0) 10^3/ uL RBC (4.1-5.3) 10^6/u L Hgb (11.7-16.6) g/dL Hct (42.0-52.0) % MCV (80-94) fL MCH (28.0-34.0) pg MCHC (30.0-36.0) g/dL RDW (12.1-15.1) % Plt Count (130-400) 10^3/c mm MPV (7.4-10.4) fL Lymph % (Auto) Flagler % (Auto) Lymph # (Auto) Flagler # (Auto) Total Counted (0-100) Atypical Lymphs % (0-5) % Absolute Neutrophi ls (1.4-6.5) 10^3/c mm Segmented Neutroph ils % Abs Segm Neuts (Ma n) (1.6-7.1) 10/cmm Band Neutrophils % Abs Band Neuts (Ma n) (0.0-1.2) 10^3/c mm Absolute Lymphocyt es (1.2-3.4) 10^3/c mm Lymphocytes (Manua l) % Metamyelocytes % Myelocytes % Nucleated RBCs (0-1) /100WBC Platelet Estimate (Normal) Polychromasia Poikilocytosis Anisocytosis Sodium (136-145) mmol/L Potassium (3.5-5.1) mmol/L Chloride (98-107) mmol/L Carbon Dioxide (22-29) mmol/L Anion Gap (5-19) BUN (8-23) mg/dL Creatinine (0.7-1.2) mg/dL GFR Calculation Glucose (65-115) mg/dL Calculated Osmolal ity (285-295) mOsm/k g Lactate (0.5-2.2) mmol/L Calcium (8.5-10.5) mg/dL Total Bilirubin (0.15-1.2) mg/dL AST (0-40) U/L ALT (0-41) U/L Alkaline Phosphata se (40-130) IU/L Total Protein (6.6-8.7) g/dL Albumin (3.5-5.2) g/dL Globulin (1.3-4.6) g/dL Lipase (13-60) U/L Urine Color Brown (Yellow) Urine Appearance Turbid (CLEAR) Urine pH 5 (5-7) Ur Specific Gravit y 1.020 (1.005-1.030) Urine Protein 1+ H (Negative) Urine Glucose (UA) Norm (Normal) Urine Ketones Negative (Negative) Urine Blood Neg (Negative) Urine Nitrate Negative (Negative) Urine Bilirubin 2+ H (Negative) Urine Urobilinogen 4 H (Negative) mg/dL Ur Leukocyte Taina ase Negative (Negative) Urine RBC None (0-2) /hpf Urine WBC 0-4 H (0-5) /hpf Ur Squamous Epith Cells 0-4 H (0-5) /hpf Amorphous Sediment 2+ /hpf Urine Bacteria 4+ H (NONE) /hpf Discharge Plan Discharge Patient Disposition: Admitted As Inpatient Admit Provider: Jonathan Caraballo Clinical Impression: Acute dehydration, Acute kidney injury Vomiting Qualifiers: Vomiting type: unspecified Vomiting Intractability: non-intractable Condition: Stable Referrals: Stevie Mullen DO [Primary Care Provider] - Discharge Date/Time: 07/15/20 21:08 Coding Level of Care Code ED Technical Operations Specialist for Chg Fwd Exam Comprehensive Documented by User: Lion Valente MD 07/15/20 20:19 HPI - GI Bleed General: Chief complaint: GI Bleed Stated complaint: released 07/11 cnt swallow Time Seen by Provider: 07/15/20 17:28 History of Present Illness: Associated symptoms: Reports abdominal pain and nausea; Denies chills, easy bruising, fever(s) or rash Review of Systems Const: Denies: fever(s), chills, body aches or change in appetite Eyes: Denies: blurry vision or eye discomfort ENMT: Denies: throat pain or dental pain Card: Denies: chest pain Resp: Denies: dyspnea GI: Reports: abdominal pain and nausea : Denies: dysuria Musc: Denies: neck pain or back pain Skin/Breast: Denies: rash Neuro: Reports: weakness in extremities Psych: Denies: depression Sameer/Lymph: Denies: easy bruising All/Imm: Denies: urticaria PFSH ED PFSH: Medical History ASHD (arteriosclerotic heart disease) 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 30% proximal LM stenosis, 50% distal LM stenosis. Last coronary angiogram 08/2019. BCC (basal cell carcinoma of skin) Heart disease Hyperlipidemia Hypertension Mass Moderate aortic stenosis Murmur Prostate cancer Surgical History H/O basal cell carcinoma excision H/O circumcision H/O colonoscopy 2010 History of appendectomy History of colon resection 14 inches removed History of testicular surgery Family History Daughter Cancer skin bcc Brother Cancer skin bcc Mother Cancer colon Sister Diabetes Other CAD (coronary artery disease) Denies family history of Anesthesia complication Bleeding disorder Social History (Reviewed 07/16/20 @ 06:13 by BOSTON Callahan Smoking and tobacco status: former smoker Alcohol intake: never Household members: spouse Marital status: Current occupational status: retired History of recent travel: No Physical Exam Const: COMMON NORMALS: no acute distress, patient oriented x3 and healthy appearing HENMT: COMMON NORMALS: normocephalic and atraumatic HEAD & SCALP: normocephalic and atraumatic Eye: COMMON NORMALS: Equal, round and reactive pupils present and EOMs intact bilaterally PUPIL: Yes Equal, round and reactive pupils present Neck/C-Spine: COMMON NORMALS: full ROM and supple Chest: COMMONS NORMALS: normal inspection of the chest and normal palpation of entire chest wall Resp: COMMON NORMALS: normal respiratory effort, No retractions, No use of accessory muscles and clear to auscultation bilaterally AUSCULTATION: clear to auscultation bilaterally Cardio: COMMON NORMALS: regular rate, regular rhythm and No murmurs present (Cardio) RATE: regular rate RHYTHM: regular rhythm GI: COMMON NORMALS: Normal to inspection, nondistended, normoactive bowel sounds present, Soft to palpation and no masses PALPATION: Yes Soft to palpation and Yes Tenderness to palpation present (GI) (diffuse tender) Extremity: COMMON NORMALS: normal to inspection and full ROM Neuro: COMMON NORMALS: patient oriented x3, moves all extremities and no focal motor deficits Psych: COMMON NORMALS: mental status grossly normal, Normal thought process present and cooperative THOUGHT PROCESS: Normal thought process present Skin: COMMON NORMALS: no rashes or lesions noted and no wounds GENERAL SKIN EXAM: no rashes or lesions noted Course Vital Signs: Vital signs: Vital Signs Temperature 98.2 F 07/16/20 05:00 Pulse Rate 105 H 07/16/20 05:00 Respiratory Rate 19 H 07/16/20 05:00 Blood Pressure 109/61 07/16/20 05:00 Pulse Oximetry 96 07/16/20 05:00 MDM - GI Bleed MDM Narrative: Medical decision making narrative: Micah presents here with vo miting and is has acute kidney injury from vomiting. Is likely causing his hypotension as well as he is quite dehydrated. Patient's blood pressure and heart rate is improved greatly after IV fluids and his blood pressure is now 116/68. Did get blood cultures and give antibiotics in case patient was septic. CT scan shows no acute findings. I spoke to hospitalist and will admit at this time. Patient's hemoglobin here is been stable with no signs of GI bleed at this time. Lab Data: Labs: Lab Results 07/15/20 07/15/20 07/15/20 Range/Units 17:50 17:50 17:50 WBC 4.8 (4.0-10.0) 10^3/ uL RBC 3.56 L (4.1-5.3) 10^6/u L Hgb 10.7 L (11.7-16.6) g/dL Hct 33.0 L (42.0-52.0) % MCV 92.7 (80-94) fL MCH 30.1 (28.0-34.0) pg MCHC 32.4 (30.0-36.0) g/dL RDW 19.3 H (12.1-15.1) % Plt Count 69 L (130-400) 10^3/c mm MPV 9.4 (7.4-10.4) fL Lymph % (Auto) Not Reportable Flagler % (Auto) Not Reportable Lymph # (Auto) Not Reportable [place] # (Auto) Not Reportable Total Counted 100 (0-100) Atypical Lymphs % 6.0 H (0-5) % Absolute Neutrophi ls 2.9 (1.4-6.5) 10^3/c mm Segmented Neutroph ils 61 % Abs Segm Neuts (Ma n) 2.9 (1.6-7.1) 10/cmm Band Neutrophils 0.0 % Abs Band Neuts (Ma n) 0.0 (0.0-1.2) 10^3/c mm Absolute Lymphocyt es 1.3 (1.2-3.4) 10^3/c mm Lymphocytes (Manua l) 22 % Metamyelocytes 4.0 % Myelocytes 4.0 % Nucleated RBCs 3.0 H (0-1) /100WBC Platelet Estimate Decreased (Normal) Polychromasia Trace Poikilocytosis 1+ H Anisocytosis 1+ H Sodium 133 L (136-145) mmol/L Potassium 5.2 H (3.5-5.1) mmol/L Chloride 101 (98-107) mmol/L Carbon Dioxide 18 L (22-29) mmol/L Anion Gap 19.2 H (5-19) BUN 46 H (8-23) mg/dL Creatinine 2.5 H (0.7-1.2) mg/dL GFR Calculation Not Reportable Glucose 132 H (65-115) mg/dL Calculated Osmolal ity 290 (285-295) mOsm/k g Lactate 3.9 H (0.5-2.2) mmol/L Calcium 8.2 L (8.5-10.5) mg/dL Total Bilirubin 2.7 H (0.15-1.2) mg/dL AST 802 H (0-40) U/L ALT 262 H (0-41) U/L Alkaline Phosphata se 665 H (40-130) IU/L Total Protein 5.6 L (6.6-8.7) g/dL Albumin 3.2 L (3.5-5.2) g/dL Globulin 2.4 (1.3-4.6) g/dL Lipase 100 H (13-60) U/L Urine Color (Yellow) Urine Appearance (CLEAR) Urine pH (5-7) Ur Specific Gravit y (1.005-1.030) Urine Protein (Negative) Urine Glucose (UA) (Normal) Urine Ketones (Negative) Urine Blood (Negative) Urine Nitrate (Negative) Urine Bilirubin (Negative) Urine Urobilinogen (Negative) mg/dL Ur Leukocyte Taina ase (Negative) Urine RBC (0-2) /hpf Urine WBC (0-5) /hpf Ur Squamous Epith Cells (0-5) /hpf Amorphous Sediment /hpf Urine Bacteria (NONE) /hpf 07/15/20 Range/Units 18:25 WBC (4.0-10.0) 10^3/ uL RBC (4.1-5.3) 10^6/u L Hgb (11.7-16.6) g/dL Hct (42.0-52.0) % MCV (80-94) fL MCH (28.0-34.0) pg MCHC (30.0-36.0) g/dL RDW (12.1-15.1) % Plt Count (130-400) 10^3/c mm MPV (7.4-10.4) fL Lymph % (Auto) Flagler % (Auto) Lymph # (Auto) [place] # (Auto) Total Counted (0-100) Atypical Lymphs % (0-5) % Absolute Neutrophi ls (1.4-6.5) 10^3/c mm Segmented Neutroph ils % Abs Segm Neuts (Ma n) (1.6-7.1) 10/cmm Band Neutrophils % Abs Band Neuts (Ma n) (0.0-1.2) 10^3/c mm Absolute Lymphocyt es (1.2-3.4) 10^3/c mm Lymphocytes (Manua l) % Metamyelocytes % Myelocytes % Nucleated RBCs (0-1) /100WBC Platelet Estimate (Normal) Polychromasia Poikilocytosis Anisocytosis Sodium (136-145) mmol/L Potassium (3.5-5.1) mmol/L Chloride (98-107) mmol/L Carbon Dioxide (22-29) mmol/L Anion Gap (5-19) BUN (8-23) mg/dL Creatinine (0.7-1.2) mg/dL GFR Calculation Glucose (65-115) mg/dL Calculated Osmolal ity (285-295) mOsm/k g Lactate (0.5-2.2) mmol/L Calcium (8.5-10.5) mg/dL Total Bilirubin (0.15-1.2) mg/dL AST (0-40) U/L ALT (0-41) U/L Alkaline Phosphata se (40-130) IU/L Total Protein (6.6-8.7) g/dL Albumin (3.5-5.2) g/dL Globulin (1.3-4.6) g/dL Lipase (13-60) U/L Urine Color Brown (Yellow) Urine Appearance Turbid (CLEAR) Urine pH 5 (5-7) Ur Specific Gravit y 1.020 (1.005-1.030) Urine Protein 1+ H (Negative) Urine Glucose (UA) Norm (Normal) Urine Ketones Negative (Negative) Urine Blood Neg (Negative) Urine Nitrate Negative (Negative) Urine Bilirubin 2+ H (Negative) Urine Urobilinogen 4 H (Negative) mg/dL Ur Leukocyte Taina ase Negative (Negative) Urine RBC None (0-2) /hpf Urine WBC 0-4 H (0-5) /hpf Ur Squamous Epith Cells 0-4 H (0-5) /hpf Amorphous Sediment 2+ /hpf Urine Bacteria 4+ H (NONE) /hpf Imaging Data^: CT Abd/Pel: Attestation: I personally reviewed and interpreted this imaging study as follows: My impression: Reason: abd pain [address] [address] [address] Scan Report Signed Patient: Micah Bhandari Unit #: [id number] : 1945 Age/Sex: 74 / M ADM Date: 07/15/20 Loc: ER Room/Bed: Attending Dr: Ordering Provider/Ordering MD: Jose Maria Zavaleta DO Date of Service: 07/15/20 Procedure(s): CT abdomen pelvis w con* [id number] Accession Number(s): [id number] Report Number: [id number] PROCEDURE INFORMATION: Exam: CT Abdomen And Pelvis With Contrast Exam date and time: 07/15/2020 6:13 PM Age: 74 years old Clinical indication: Abdominal pain; Prior surgery; Surgery date: 3-7 days post-operative; Surgery type: Recent bowel SX; Additional info: Abd pain TECHNIQUE: Imaging protocol: Computed tomography of the abdomen and pelvis with intravenous contrast. Radiation optimization: All CT scans at this facility use at least one of these dose optimization techniques: automated exposure control; mA and/or kV adjustment per patient size (includes targeted exams where dose is matched to clinical indication); or iterative reconstruction. Contrast material: OMNI 300; Contrast volume: 95 ml; Contrast route: INTRAVENOUS (IV); COMPARISON: No relevant prior studies available. RADIATION DOSE METRICS: Total DLP (mGy-cm): 788.23 FINDINGS: There is a moderate left pleural effusion. Liver: There are multifocal masses throughout the right and left lobes of the liver. The largest is a 5 cm mass in the central liver. Gallbladder and bile ducts: Gallstones are identified although there are no CT findings to suggest cholecystitis. Pancreas: Normal. No ductal dilation. Spleen: Normal. No splenomegaly. Adrenals: Normal. No mass. Kidneys and ureters: Normal. No hydronephrosis. Stomach and bowel: There has been partial colectomy. No bowel obstruction or wall thickening.Colonic diverticula are present although there are no CT findings to suggest diverticulitis. Appendix: No evidence of appendicitis. Intraperitoneal space: There is a small amount of fluid in the pelvis. Vasculature: Unremarkable. No abdominal aortic aneurysm. Lymph nodes: There is 2.6 cm adenopathy in the cary hepatis. Bladder: Unremarkable as visualized. Reproductive: Unremarkable as visualized. Bones/joints: There is multifocal osseous sclerosis throughout the visualized thoracic spine, lumbar spine and pelvis.Degenerative change is identified in the spine. Soft tissues: Unremarkable. CT/CT abdomen pelvis w con* [id number] IMPRESSION: There are no acute concerning abnormalities. There is a moderate left pleural effusion. Findings are consistent with metastatic disease to the liver and bones. There is metastatic adenopathy in the cary hepatis. Radiation Dose CTDIVOL = (mGy): DLP = 788.23 (mGy-cm) CT Head: Attestation: I personally reviewed and interpreted this imaging study as follows: Radiologist's impression: [place] [address] CT Scan Report Signed Patient: Micah Bhandari Unit #: [id number] : 1945 Age/Sex: 74 / M ADM Date: 07/15/20 Loc: ER Room/Bed: Attending Dr: Ordering Provider/Ordering MD: Lion Valente MD Date of Service: 07/15/20 Procedure(s): CT head wo con* [id number] Accession Number(s): [id number] Report Number: [id number] PROCEDURE INFORMATION: Exam: CT Head Without Contrast Exam date and time: 07/15/2020 5:57 PM Age: 74 years old Clinical indication: Speech disturbance and weakness, extremity; Bilateral; Additional info: AMS TECHNIQUE: Imaging protocol: Computed tomography of the head without contrast. Radiation optimization: All CT scans at this facility use at least one of these dose optimization techniques: automated exposure control; mA and/or kV adjustment per patient size (includes targeted exams where dose is matched to clinical indication); or iterative reconstruction. COMPARISON: No relevant prior studies available. RADIATION DOSE METRICS: Total DLP (mGy-cm): 798.32 FINDINGS: Brain: Mild volume loss and white matter disease are identified. There is no acute infarct or edema. No hemorrhage. Ventricles: No ventriculomegaly. Bones/joints: Unremarkable. No acute fracture. Paranasal sinuses: Visualized sinuses are unremarkable. No fluid levels. Mastoid air cells: Visualized mastoid air cells are well aerated. Soft tissues: Unremarkable. CT/CT head wo con* [id number] IMPRESSION: There are no acute concerning abnormalities. Discharge Plan Discharge Patient Disposition: Admitted As Inpatient Admit Provider: Jonathan Caraballo Clinical Impression: Acute dehydration, Acute kidney injury Vomiting Qualifiers: Vomiting type: unspecified Vomiting Intractability: non-intractable Condition: Stable Referrals: Stevie Mullen DO [Primary Care Provider] - Discharge Date/Time: 07/15/20 21:08 Coding Level of Care Code ED Technical Operations Specialist for Chg Fwd Exam Comprehensive
--- NOTE | 2020-07-15 17:51 | XRR_ITS ---
PROCEDURE INFORMATION: Exam: XR Chest, 1 View Exam date and time: 07/15/2020 6:09 PM Age: 74 years old Clinical indication: Dyspnea/cough TECHNIQUE: Imaging protocol: XR of the chest Views: 1 view. COMPARISON: CR XR chest 1V portable [id number] 06/29/2020 12:10 PM FINDINGS: Lungs: Left upper lobe mass consistent with malignancy is redemonstrated and appears to be larger. This is associated with destruction of the adjacent left 1st and 2nd ribs. Pleural space: No pleural effusion or pneumothorax. Heart/Mediastinum: The cardiac silhouette is not enlarged. The mediastinal contours are unchanged. Bones/joints: Widespread osseous metastatic disease. XR/XR chest 1V portable [id number] IMPRESSION: 1. Enlargement of the left upper lobe malignancy. 2. Osseous metastatic disease.
--- NOTE | 2020-07-15 17:57 | CTR_ITS ---
PROCEDURE INFORMATION: Exam: CT Head Without Contrast Exam date and time: 07/15/2020 5:57 PM Age: 74 years old Clinical indication: Speech disturbance and weakness, extremity; Bilateral; Additional info: AMS TECHNIQUE: Imaging protocol: Computed tomography of the head without contrast. Radiation optimization: All CT scans at this facility use at least one of these dose optimization techniques: automated exposure control; mA and/or kV adjustment per patient size (includes targeted exams where dose is matched to clinical indication); or iterative reconstruction. COMPARISON: No relevant prior studies available. RADIATION DOSE METRICS: Total DLP (mGy-cm): 798.32 FINDINGS: Brain: Mild volume loss and white matter disease are identified. There is no acute infarct or edema. No hemorrhage. Ventricles: No ventriculomegaly. Bones/joints: Unremarkable. No acute fracture. Paranasal sinuses: Visualized sinuses are unremarkable. No fluid levels. Mastoid air cells: Visualized mastoid air cells are well aerated. Soft tissues: Unremarkable. CT/CT head wo con* [id number] IMPRESSION: There are no acute concerning abnormalities. Radiation Dose CTDIVOL = (mGy): DLP = 798.32 (mGy-cm)
[2020-07-15 18:00] LABS: Hemoglobin 10.7 g/dL (11.7-16.6); Mean Corpuscular HGB Conc 32.4 g/dL (30.0-36.0); Mean Corpuscular Hemoglobin 30.1 pg (28.0-34.0); Mean Corpuscular Volume 92.7 fL (80-94); Mean Platelet Volume 9.4 fL (7.4-10.4); Platelet Count 69 10^3/cmm (130-400); Red Blood Count 3.56 10^6/uL (4.1-5.3); Red Cell Distribution Width 19.3 % (12.1-15.1); White Blood Count 4.8 10^3/uL (4.0-10.0)
[2020-07-15] MEDS: sodium chloride 0.9% 1,000 ML 999 ML IV ×2 (18:05→20:48)
[2020-07-15] MEDS: ondansetron 2 mg/ML SDV 2 mL 4 MG IVP (18:06)
[2020-07-15] MEDS: pantoprazole 40 mg SDV 80 MG IVP (18:06)
[2020-07-15 18:15] LABS: Alanine Aminotransferase 262 U/L (0-41); Albumin Level 3.2 g/dL (3.5-5.2); Alkaline Phosphatase 665 IU/L (40-130); Anion Gap 19.2 (5-19); Blood Urea Nitrogen 46 mg/dL (8-23); Calcium 8.2 mg/dL (8.5-10.5); Carbon Dioxide 18 mmol/L (22-29); Chloride 101 mmol/L (98-107); Globulin 2.4 g/dL (1.3-4.6); Glucose 132 mg/dL (65-115); Lipase 100 U/L (13-60); Osmolality Calculated 290 mOsm/kg (285-295); Potassium 5.2 mmol/L (3.5-5.1); Sodium 133 mmol/L (136-145); Total Bilirubin 2.7 mg/dL (0.15-1.2); Total Protein 5.6 g/dL (6.6-8.7)
[2020-07-15 18:28] LABS: Slide Review Slide Review Perform
[2020-07-15 18:30] LABS: Lactate (Lactic Acid level) 3.9 mmol/L (0.5-2.2)
[2020-07-15 18:31] LABS: Aspartate Amino Transferase 802 U/L (0-40)
[2020-07-15 18:36] LABS: Absolute Neutrophil 2.9 10^3/cmm (1.4-6.5); Absolute Segmented Neutrophil 2.9 10/cmm (1.6-7.1); Lymphocytes 22 %; Lymphocytes Absolute 1.3 10^3/cmm (1.2-3.4); Platelet Estimate Decreased (Normal); Poikilocytosis 1+; Segmented Neutrophils 61 %; Total Cells Counted 100 (0-100)
[2020-07-15 18:37] LABS: Polychromasia Trace
[2020-07-15 18:38] LABS: Anisocytosis 1+
[2020-07-15] MEDS: iohexol 300 mg/mL 100 mL Btl IV (18:42)
[2020-07-15 18:43] LABS: Add Urine Microscopic? YES; Bilirubin Urine 2+ (Negative); Blood Urine Neg (Negative); Glucose Urine UA Norm (Normal); Ketones Urine Negative (Negative); Leukocyte Esterase Urine Negative (Negative); Nitrate Urine Negative (Negative); Protein Urine 1+ (Negative); Urine Appearance Turbid (CLEAR); Urine Color Brown (Yellow); Urobilinogen Urine 4 mg/dL (Negative); pH Urine 5 (5-7)
--- NOTE | 2020-07-15 18:48 | US_ITS ---
WS: [id number] ULTRASOUND ABDOMEN LIMITED CLINICAL INFORMATION: abdpain COMPARISON: None. FINDINGS: Liver Size: Enlarged Craniocaudal length: 17.6 cm. Echogenicity: Normal. Surface nodularity: None. Mass (size and location): Hepatomegaly with diffuse hypoechoic lesions throughout both hepatic lobes compatible with metastatic disease. Bile ducts Intrahepatic ducts: Normal. Common bile duct diameter: 0.6 cm. Gallbladder Cholelithiasis Gallstones: Present Gallbladder sludge: None. Gallbladder wall thickening: None. Pericholecystic fluid: None. Sonographic Aleman sign: Absent. Pancreas Normal as visualized. Right kidney: Normal. Hydronephrosis: None. Size: 9.9 cm x 5.4 cm x 4.5 cm. Abdominal aorta and IVC Visualized portions are normal. Ascites: Present US/US gall bladder [id number] IMPRESSION: 1. Diffuse hypoechoic lesions throughout the liver consistent with metastatic disease similar to the recent CT. Hepatomegaly. 2. Cholelithiasis. Gallbladder is contracted. No gallbladder wall thickening o r fluid. 3. No hydronephrosis in the right kidney.
[2020-07-15 18:49] LABS: Amorphous Sediment Urine 2+ /hpf; Bacteria Urine 4+ /hpf
[2020-07-15 18:50] LABS: Squamous Epithelial Cell Urine 0-4 /hpf (0-5); WBC Urine 0-4 /hpf (0-5)
[2020-07-15] MEDS: vancomycin 1,000 MG in sodium chloride 0.9% 250 ML 250 MG IV (18:50)
[2020-07-15 18:51] LABS: Add Urine Culture? No
[2020-07-15 19:25] VITALS: BP 90/64; PULSE 99; RESP 16; O2SAT 98
--- NOTE | 2020-07-15 19:53 | PM.HP ---
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 He was recently discharged from the hospital after management of GI blood loss anemia, antiplatelets were discontinued for 2 weeks, Plavix to be initiated in 2 weeks, etiology of blood loss anemia was thought secondary to chronic use of steroids(steroids were continued because of history of prostate cancer and hypotension), he did not require any blood transfusion. is at the bedside who is endorsing that since his discharge from the hospital he has not been able to improve his p.o. intake, at home he is only taking liquid diet, he is not able to chew solid food, and attempt to eats solid food he was experiencing a lot of tongue and lip bites. Every time he was trying to eat solid food it was making his abdominal pain worse, he has been experiencing dry heaves without any vomiting, fever at home. is very concerned regarding his poor p.o. intake. Is very lethargic and tired has minimal strength to bear his weight on his legs. Because of dryness of mouth he is struggling with articulating properly. When I asked her about the left-sided facial droop she endorsed that these findings were present on previous admission as well, she was worried about stroke. Diagnosis in the ER revealed severe dehydration, high lactic acid, he received vancomycin and Zosyn, he is not septic at all, he is afebrile, no leukocytosis or tachycardia, CT abdomen revealed liver and bony metastases no active evidence of cholecystitis, worsening of liver enzymes, high bilirubin, MERLIN Soft blood pressure on presentation which improved with a liter fluid resuscitation At the time my evaluation systolic blood pressure 123mmhg Did not require stress dose steroids, He has multiple petechiae all over his extremities and abdominal wall, platelet count 96, no active bleeding, hemoglobin stable, I reviewed the biopsy result of lung mass and likelihood of liver metastases, these findings were new for them Results of GI endoscopy 07/10 upper endoscopy findings: Gastric erosions, chronic duodenal ulcers, large duodenal ulcer stigmata of bleeding from erosions Colonoscopy revealed diverticulosis without perforation or abscess, colo-colonic anastomosis, no active bleeding Review of Systems Const: Reports: chills, body aches, change in appetite, change in weight, fatigue and malaise; Denies: fever(s) Eyes: Denies: change in vision ENMT: Reports: throat pain, odynophagia, hoarseness and oral sores Card: Denies: chest pain Resp: Denies: dyspnea GI: Reports: abdominal pain, nausea, dysphagia and heartburn; Denies: vomiting : Denies: flank pain Musc: Reports: extremity swelling and limited range of motion; Denies: neck pain Skin/Breast: Reports: new lesions and lesions Neuro: Reports: weakness in extremities and difficulty walking; Denies: headache(s) Psych: Reports: irritability Endo: Denies: polyuria Sameer/Lymph: Reports: easy bruising, easy bleeding, petechiae and purpura All/Imm: Denies: urticaria Medications/Allergies Home Medications Medication Instructions Recorded Confirmed Last Taken Type abiraterone 250 mg tablet 1,000 mg PO DAILY 04/29/20 07/15/20 07/15/20 History ascorbic acid (vitamin C) 500 mg 500 mg PO BID cap 04/29/20 07/15/20 05/22/20 History capsule calcium citrate-ergocalciferol 1 tab PO BID tab 04/29/20 07/15/20 05/22/20 History (vitamin D2) 250 mg-100 unit tablet cinnamon bark 500 mg capsule 1,000 mg PO DAILY cap 04/29/20 07/15/20 05/22/20 History flaxseed oil 1,000 mg capsule 1,000 mg PO BID 04/29/20 07/15/20 05/22/20 History garlic 1,000 mg capsule 1,000 mg PO DAILY 04/29/20 07/15/20 04/24/20 History dnpuanmw-pln-gkpjz 200 mcg-lycop 1 tab PO DAILY tab 04/29/20 07/15/20 05/22/20 History 175 mcg-lutei 250 mcg-herb 178 tablet nitroglycerin 0.4 mg sublingual 0.4 mg SUBLINGUAL Q5M PRN 04/29/20 07/15/20 Unknown History tablet potassium gluconate 595 mg (99 mg) 595 mg PO DAILY 04/29/20 07/15/2005/22/20 History tablet Glucosamine-Chondroitin Complx 1 cap PO BID 05/22/20 07/15/20 05/22/20 History milk thistle 175 mg PO DAILY 05/22/20 07/15/20 05/21/20 History rosuvastatin 10 mg PO BEDTIME 05/22/20 07/15/20 07/15/20 History isosorbide mononitrate 30 mg 15 mg PO BID #90 tab 06/17/20 07/15/20 07/15/20 Rx tablet,extended release 24 hr lisinopril 20 mg tablet 10 mg PO BID #90 tab 06/17/20 07/15/20 07/13/20 Rx vismodegib 150 mg capsule 150 mg PO DAILY 06/17/20 07/15/20 07/14/20 History metoprolol succinate 25 mg 12.5 mg PO QAM #90 tab 06/19/20 07/15/20 07/15/20 Rx tablet,extended release 24 hr ranolazine 500 mg tablet,extended 500 mg PO BID #90 tab 07/03/20 07/15/20 07/15/20 Rx release,12 hr Eligard (3 month) 22.5 mg SUBCUT Q90D 07/08/20 07/15/20 Unknown History prednisone 5 mg PO BID 07/08/20 07/15/20 07/15/20 History ferrous gluconate 324 mg PO BIDWM #60 tab 07/11/20 07/15/20 07/15/20 Rx pantoprazole [Protonix] 40 mg PO BID #30 each 07/11/20 07/15/20 07/15/20 Rx pantoprazole 40 mg PO DAILY 07/15/20 07/15/20 Unknown History Allergies Allergy/AdvReac Type Severity Reaction Status Date / Time No Known Allergies Allergy Verified 07/15/20 18:34 PFSH Acute PFSH: Medical History ASHD (arteriosclerotic heart disease) ONLINE USER EXPERIENCE STRATEGIST circumflex and RCA with collaterals. 30% proximal LM stenosis, 50% distal LM stenosis. Last coronary angiogram 08/2019. BCC (basal cell carcinoma of skin) Heart disease Hyperlipidemia Hypertension Mass Moderate aortic stenosis Murmur Prostate cancer Surgical History H/O basal cell carcinoma excision H/O circumcision H/O colonoscopy 2009 History of appendectomy History of colon resection 14 inches removed History of testicular surgery Family History Daughter Cancer skin bcc Brother Cancer skin bcc Mother Cancer colon Sister Diabetes Other CAD (coronary artery disease) Denies family history of Anesthesia complication Bleeding disorder Social History Smoking and tobacco status: former smoker Alcohol intake: never Household members: spouse Marital status: Current occupational status: retired History of recent travel: No Vitals/I&O/Wt Last Vital Signs Temp 97.4 F L 07/15/20 17:08 Pulse 99 07/15/20 19:25 Resp 16 07/15/20 19:25 BP 90/64 07/15/20 19:25 Pulse Ox 98 07/15/20 19:25 Weight last 48 hrs Weight 74.389 kg Physical Exam Narrative: EXAM NARRATIVE: Very flared dehydrated elderly male laying in distress in his bed because abdominal pain Systolic blood pressure improved after 2 L fluid resuscitation current systolic blood pressure 123 mmHg at the time of my evaluation Temperature was rechecked which was 96.8 orally and left axillary 98.6F Facial flushing noticed, extremely dry mouth, Patient is not able to stick his tongue out because of dryness Left-sided facial droop Patient was awake alert oriented x3 GCS 15 3/5 upper extremity strength, 2/5 lower extremity strength Lower extremity edema 1+ bilaterally Abdomen with petechial rash, distended, soft, bowel sound present, hepatomegaly, tender right quadrant area on deep palpation Diminished breath sounds bilateral No active respiratory distress, saturating well on room air Data : 07/15/20 17:50 07/15/20 17:50 Micro: Microbiology 07/15/20 19:04 Blood Culture - Preliminary Blood SPECIMEN COLLECTED 07/15/20 17:50 Blood Culture - Preliminary Blood SPECIMEN COLLECTED Other data: Coronary angiogram done in August 2019 revealing 30% proximal left main stenosis, 50% distal left main stenosis, 20% diffuse stenosis of the LAD, 50% ramus, proximal circumflex ONLINE USER EXPERIENCE STRATEGIST, proximal RCA 100% ONLINE USER EXPERIENCE STRATEGIST, distal RCA filling from collaterals, large OM branch filling from left to left collaterals also supplying LV apex. A&P Assessment and plan (1) Dysphagia: Status: Acute (2) Facial asymmetry: Status: Acute (3) Acute kidney injury: Status: Acute (4) Acute dehydration: Status: Acute (5) Abnormal liver enzymes: Status: Acute (6) Blood loss anemia: Status: Acute (7) GI bleed: Status: Acute (8) Thrombocytopenia: Status: Acute (9) Petechial rash: Status: Acute (10) Hyperkalemia: Status: Acute Additional A&P Information Dysphagia Patient has left-sided facial droop, is endorsing these findings were present 2 to 3 weeks ago as well Patient is extremely dry, not able to articulate due to dryness of mouth, I have requested nursing staff to provide him mouth swab Speech evaluation in the morning, patient is denying frequent episodes of aspiration CT head unremarkable I do suspect CVA with extreme dryness of mouth to be the etiology of this dysphagia, consider MRI in the morning please Recent EGD did not show any intraluminal mass Acute dehydration Secondary to poor p.o. intake I would resume clear liquid diet along with resuscitation MERLIN with hyperkalemia secondary to dehydration: Anticipate improvement with fluid resuscitation Hold nephrotoxic agents, hold lisinopril Hold Imdur, patient was hypotensive on admission as well, did not require stress dose steroids Chronic blood loss anemia: Hemoglobin stable GI endoscopy results mentioned in my HPI Thrombocytopenia with petechial rash Avoid DVT prophylaxis with anticoagulant, use SCDs for now Patient had received vancomycin and Zosyn in the ER (monitor platelet count after antibiotic usage however single doses are not associated with bone marrow suppression or antibody formation) which I would hold for now as she is covered for next 24 hours, I am still waiting on gallbladder ultrasound report, no ductal dilation noticed on abdominal CT scan Abnormal transaminases Worsening transaminases with high alkaline phosphatase and bilirubin, CT abdomen shows concerning changes for metastatic lesions, no ductal dilation, bowel ultrasound pending, status post Zosyn in the ER Afebrile not septic, no signs of cholangitis Patient is awake alert oriented x3 GCS 15 I do suspect hepatic lesion to be the cause of worsening transaminases Lung mass biopsy results reviewed with the patient and his Limited resuscitation: Does not want CPR or intubation okay with ice admission and use of medications Clear liquid diet for now Avoid DVT prophylaxis with anticoagulant, use SCD Attestations Medical Necessity Statement*: Anticipating stay in the hospital to be less than 48 hours currently need evaluation for dysphagia which I believe is secondary to CVA versus extreme dehydration/dryness of mouth, patient health gradually declining Time Spent in Patient Care: (>than 50% of time spent in counselling and/or direct pt care on unit). 50mins Coding Level of Care Code Acute Solution Advisor for Chg Fwd Diagnoses Dysphagia R13.10 Facial asymmetry Q67.0 Acute kidney injury N17.9 Acute dehydration E86.0 Abnormal liver enzymes R74.8 Blood loss anemia D50.0 GI bleed K92.2 Thrombocytopenia D69.6 Petechial rash R23.3 Hyperkalemia E87.5
[2020-07-15] MEDS: piperacillin-tazobactam 3.375 GM in sodium chloride 0.9% (plus) 50 ML IV (19:58)
[2020-07-15 20:04] VITALS: BP 116/68; PULSE 96; RESP 16; O2SAT 94
[2020-07-15 21:00] VITALS: BP 120/78; PULSE 102; RESP 22; TEMP 36; O2SAT 94
[2020-07-15 21:08] VITALS: BP 123/65; PULSE 87; RESP 16; O2SAT 96
[2020-07-15 22:35] VITALS: PULSE 97; RESP 18; O2SAT 95
[2020-07-15] MEDS: pantoprazole 40 mg SDV IVP ×2 (23:00→23:32)
[2020-07-15] MEDS: dextrose 5%-sod chloride 0.45% 1,000 ML 75 ML IV (23:31)
[2020-07-16] VITALS (9 sets, daily range): BP systolic 99–114; BP diastolic 56–76; PULSE 95–107; RESP 16–21; TEMP 36.4–36.8; O2SAT 92–97
--- NOTE | 2020-07-16 01:16 | PC.NURSE ---
Pt refused SCDs on admission, doctor notified. No new orders received
[2020-07-16 05:56] LABS: Alanine Aminotransferase 253 U/L (0-41); Albumin Level 2.7 g/dL (3.5-5.2); Alkaline Phosphatase 580 IU/L (40-130); Anion Gap 18.6 (5-19); Blood Urea Nitrogen 44 mg/dL (8-23); Calcium 7.8 mg/dL (8.5-10.5); Carbon Dioxide 17 mmol/L (22-29); Chloride 106 mmol/L (98-107); Globulin 2.3 g/dL (1.3-4.6); Glucose 119 mg/dL (65-115); Osmolality Calculated 296 mOsm/kg (285-295); Potassium 4.6 mmol/L (3.5-5.1); Sodium 137 mmol/L (136-145); Total Bilirubin 2.6 mg/dL (0.15-1.2)
[2020-07-16 06:07] LABS: Aspartate Amino Transferase 836 U/L (0-40)
[2020-07-16 06:23] LABS: Basophils % 0.3 %; Eosinophils % 0.5 %; Hematocrit 30.4 % (42.0-52.0); Hemoglobin 9.6 g/dL (11.7-16.6); Lymphocytes # 0.7 10^3/uL (0.8-4.8); Lymphocytes % 19.5 %; Mean Corpuscular HGB Conc 31.6 g/dL (30.0-36.0); Mean Corpuscular Hemoglobin 29.7 pg (28.0-34.0); Mean Corpuscular Volume 94.1 fL (80-94); Mean Platelet Volume 9.8 fL (7.4-10.4); Monocytes # 0.3 10^3/uL (0.2-0.9); Monocytes % 8.9 %; Neutrophils # 2.43 10^3/uL (1.8-7.7); Nucleated Red Blood Cells # 0.4 /100WBC; Nucleated Red Blood Cells % 10.3 %; Platelet Count 61 10^3/cmm (130-400); Red Blood Count 3.23 10^6/uL (4.1-5.3); Red Cell Distribution Width 19.3 % (12.1-15.1); White Blood Count 3.8 10^3/uL (4.0-10.0)
[2020-07-16 07:03] LABS: Slide Review Slide Review Perform
[2020-07-16] MEDS: sucralfate 1 gm/10 mL Oral Liq UDC PO (08:05)
[2020-07-16] MEDS: morphine 4 mg/mL SDV 1 mL 2 MG IVP (08:06)
[2020-07-16] MEDS: pantoprazole DR 40 mg Tablet PO ×2 (09:07→17:42)
[2020-07-16] MEDS: ferrous gluconate 324 mg Tablet PO (09:07)
[2020-07-16] MEDS: predniSONE 5 mg Tablet PO ×2 (09:07→17:42)
--- NOTE | 2020-07-16 09:46 | PC.NURSE ---
0805 Patient only would take half of the dose of Carafate and refused the rest.
[2020-07-16] MEDS: dextrose 5%-sod chloride 0.45% 1,000 ML 75 ML IV (12:46)
--- NOTE | 2020-07-16 14:38 | P.PN_ITS ---
Subjective Subjective: Interval history: Patient is confused. Awake. Follows instructions. Responses are adequate mostly but slow. Facial symmetry is present. No acute distress. Denies any uncontrolled pain. Denies any weakness. No nausea or vomiting. No chest pain, shortness of breath, cough, palpitations Medications: Medication Review Details: Generic Name Dose Route Start Last Admin Trade Name Freq PRN Reason Stop Dose Admin Ferrous Gluconate 324 mg 07/16/20 10:00 07/16/20 09:07 Ferrous Gluconat e PO 324 mg Q48H LAURA Administration Dextrose/Sodium Ch loride 1,000 mls @ 100 m ls/hr 07/15/20 21:33 07/16/20 12:46 Dextrose 5%-Sod Chloride 0.45% IV 75 mls/hr .Q10H LAURA Administration Morphine Sulfate 2 mg 07/15/20 21:33 07/16/20 08:06 Morphine IVP 2 mg Q4H PRN Administration SEVERE PAIN Pantoprazole Sodiu m 40 mg 07/16/20 09:00 07/16/20 09:07 Protonix PO 40 mg BID LAURA Administration Prednisone 5 mg 07/16/20 09:00 07/16/20 09:07 Prednisone PO 5 mg BID LAURA Administration Vitals/I&O/Wt Last Vital Signs Temp 97.6 F 07/16/20 12:44 Pulse 104 H 07/16/20 12:44 Resp 18 07/16/20 12:44 BP 114/76 07/16/20 12:44 Pulse Ox 94 07/16/20 12:44 07/15/20 07/16/20 07/16/20 22:59 06:59 14:59 Intake Total 100 / 130 1693.75 / 1693.75 Output Total 350 / 350 400 / 400 Balance -250 / -220 1293.75 / 1293.75 Weight last 48 hrs Weight 74.389 kg Physical Exam Narrative: EXAM NARRATIVE: Awake, oriented. Slightly confused. Skin is warm and dry. Moist mucous membranes. Facial symmetry. Normal speech. Eyes Elias, extraocular muscle intact. Neck supple. No JVD. Midline trachea. Lungs decreased breath sounds bilaterally. No respiratory distress Heart S1, S2, regular Abdomen soft, nontender, bowel sounds are present Extremities no cyanosis no calf tenderness bilaterally Data : 07/16/20 04:54 07/16/20 04:54 Micro: Microbiology 07/15/20 19:04 Blood Culture - Preliminary Blood SPECIMEN COLLECTED 07/15/20 17:50 Blood Culture - Preliminary Blood SPECIMEN COLLECTED A&P Assessment and plan (1) Dysphagia: Status: Acute (2) Facial asymmetry: Status: Acute (3) Acute kidney injury: Status: Acute (4) Acute dehydration: Status: Acute (5) Abnormal liver enzymes: Status: Acute (6) Blood loss anemia: Status: Acute (7) GI bleed: Status: Acute (8) Thrombocytopenia: Status: Acute (9) Petechial rash: Status: Acute (10) Hyperkalemia: Status: Acute Additional A&P Information Dysphagia Patient has left-sided facial droop, is endorsing these findings were present 2 to 3 weeks ago as well Patient is extremely dry, not able to articulate due to dryness of mouth, I have requested nursing staff to provide him mouth swab Speech evaluation in the morning, patient is denying frequent episodes of aspiration CT head unremarkable I do suspect CVA with extreme dryness of mouth to be the etiology of this dysphagia, consider MRI in the morning please Recent EGD did not show any intraluminal mass Acute dehydration Secondary to poor p.o. intake I would resume clear liquid diet along with resuscitation MERLIN with hyperkalemia secondary to dehydration: Anticipate improvement with flui d resuscitation Hold nephrotoxic agents, hold lisinopril Hold Imdur, patient was hypotensive on admission as well, did not require stress dose steroids Chronic blood loss anemia: Hemoglobin stable GI endoscopy results mentioned in my HPI Thrombocytopenia with petechial rash Avoid DVT prophylaxis with anticoagulant, use SCDs for now Patient had received vancomycin and Zosyn in the ER (monitor platelet count after antibiotic usage however single doses are not associated with bone marrow suppression or antibody formation) which I would hold for now as she is covered for next 24 hours, I am still waiting on gallbladder ultrasound report, no ductal dilation noticed on abdominal CT scan Abnormal transaminases Worsening transaminases with high alkaline phosphatase and bilirubin, CT abdomen shows concerning changes for metastatic lesions, no ductal dilation, bowel ultrasound pending, status post Zosyn in the ER Afebrile not septic, no signs of cholangitis Patient is awake alert oriented x3 GCS 15 I do suspect hepatic lesion to be the cause of worsening transaminases Lung mass biopsy results reviewed with the patient and his Limited resuscitation: Does not want CPR or intubation okay with ice admission and use of medications Clear liquid diet for now Avoid DVT prophylaxis with anticoagulant, use SCD [place] Dysphagia. Pending speech evaluation. N.p.o. Receiving IV fluids for dehydration. Not sure what cause is. Will order MRI to rule out FAST FOODS WORKER abnormalities. Has associated facial droop and confusion. Dehydration. Continue IV fluids. Acute kidney injury with associated hyperkalemia. Hyperkalemia has resolved. Continue IV fluids. Acute kidney injury. Probably secondary to dehydration. Continue hydration and monitoring. Chronic blood loss anemia. Currently hemoglobin and hemodynamics are stable. Continue monitoring. Thrombocytopenia. Slowly worsening since beginning of June. Close monitoring. Avoid medications. Hem on consult in outpatient settings after discharge. DVT prophylaxis. Teds and SCDs. Abnormal LFTs. Probably secondary to liver metastatic lesions and tumor burden. Advanced prostate cancer with distant metastatic lesions. Has liver mets and bone mets. His lung mass. Long-term heme-onc management per primary oncologist. I will discuss with the family also long-term goals of care and advance planning. DNR. Not sure why he is on steroids at home. We will try to find out more from the family. However currently has no time to stop it. History of coronary artery disease. Stable currently. No evidence of acute cor onary syndrome. Attestations Medical Necessity Statement*: Patient will remain hospitalized until we jorge luis lize the diagnosis and adjust the treatments. Coding Level of Care Code Acute Air Traffic Control Manager for Chg Fwd Diagnoses Dysphagia R13.10 Facial asymmetry Q67.0 Acute kidney injury N17.9 Acute dehydration E86.0 Abnormal liver enzymes R74.8 Blood loss anemia D50.0 GI bleed K92.2 Thrombocytopenia D69.6 Petechial rash R23.3 Hyperkalemia E87.5
[2020-07-17] VITALS (11 sets, daily range): BP systolic 87–126; BP diastolic 56–76; PULSE 44–112; RESP 16–19; TEMP 36.3–37; O2SAT 93–97
[2020-07-17 05:39] LABS: Basophils % 0.6 %; Eosinophils % 0.2 %; Lymphocytes # 0.9 10^3/uL (0.8-4.8); Lymphocytes % 19.5 %; Mean Corpuscular HGB Conc 32.3 g/dL (30.0-36.0); Mean Corpuscular Volume 93.1 fL (80-94); Mean Platelet Volume 9.4 fL (7.4-10.4); Monocytes # 0.5 10^3/uL (0.2-0.9); Monocytes % 10.4 %; Neutrophils # 2.77 10^3/uL (1.8-7.7); Nucleated Red Blood Cells # 0.4 /100WBC; Nucleated Red Blood Cells % 7.6 %; Platelet Count 53 10^3/cmm (130-400); Red Blood Count 3.33 10^6/uL (4.1-5.3); Red Cell Distribution Width 19.9 % (12.1-15.1); White Blood Count 4.6 10^3/uL (4.0-10.0)
[2020-07-17 06:10] LABS: Alanine Aminotransferase 265 U/L (0-41); Albumin Level 2.8 g/dL (3.5-5.2); Alkaline Phosphatase 559 IU/L (40-130); Anion Gap 16.8 (5-19); Blood Urea Nitrogen 46 mg/dL (8-23); Calcium 7.5 mg/dL (8.5-10.5); Carbon Dioxide 18 mmol/L (22-29); Chloride 103 mmol/L (98-107); Globulin 2.4 g/dL (1.3-4.6); Glucose 140 mg/dL (65-115); Magnesium 2.2 mg/dL (1.7-2.3); Osmolality Calculated 290 mOsm/kg (285-295); Potassium 4.8 mmol/L (3.5-5.1); Sodium 133 mmol/L (136-145); Total Bilirubin 2.7 mg/dL (0.15-1.2); Total Protein 5.2 g/dL (6.6-8.7)
[2020-07-17] MEDS: dextrose 5%-sod chloride 0.45% 1,000 ML 75 ML IV (06:11)
[2020-07-17 06:17] LABS: Slide Review Slide Review Perform
[2020-07-17 06:24] LABS: Aspartate Amino Transferase 756 U/L (0-40)
--- NOTE | 2020-07-17 08:11 | ECG_ITS ---
[facility] Test Date: 2020-07-17 Pat Name: Micah Bhandari Department: Room: 259 Gender: Male [employer]: : 1945 Requested By: Kj óLpez Order Number: [id number] Rich MD: Kmai Romero M.D. Measurements Intervals [place] Rate: 105 P: -3 MN: 145 QRS: 25 QRSD: 116 T: -78 QT: 321 QTc: 425 Interpretive Statements SINUS TACHYCARDIA INFERIOR MYOCARDIAL INFARCTION [40+ ms Q WAVE AND/OR ST/T ABNORMALITY IN II/aVF], OF INDETERMINATE AGE WARNING: DATA QUALITY MAY AFFECT INTERPRETATION Compared to ECG 07/15/2020 17:41:05 Myocardial infarct finding now present Atrial fibrillation no longer present Intraventricular conduction delay no longer present ST (T wave) deviation no longer present Electronically Signed On 07-17-2020 13:54:50 CDT by Kami Romero M.D. [id number]
[2020-07-17] MEDS: pantoprazole DR 40 mg Tablet PO ×2 (08:25→17:29)
[2020-07-17] MEDS: predniSONE 5 mg Tablet PO ×2 (08:25→17:29)
--- NOTE | 2020-07-17 11:54 | PC.CHAP ---
Pastoral Care Encounter/Spiritual Assessment Type of Contact [] Declined sales support administrator visit [] Patient/Family/Request visit [] Outpatient visit [] Follow-up visit [] Physician referral [] Code/Alert [X] Routine visit [] Staff referral [] Actively dying [] Patient sleeping [] Family support [] [] Out of room [] Palliative care [] [] Receiving care in room [] Pre-surgical visit [] Trauma [] Long length of stay [] ICU visit [] Other: Relational/Emotional Strength [] Patient feels connected with others/family/visitors/staff [] Distress [] Loneliness/isolation [] Abandonment Spirituality of Patient [] Person of Mikaela [] Attends Buddhist of their Mikaela [] Believes in Prayer [] Reads Bible or Quaker materials [] There are Spiritual issues to be addressed Multimedia Assistant Interventions [X] Prayer [] Active listening [] Non-anxious presence [] Spiritual/emotional support [] Crisis/trauma care [] Spiritual counseling [] Bereavement support [] Provided bereavement packet [] Provided Bible/devotional materials [] Provided toy/stuffed animal, coloring book to patient or family member [] Provided Communion [] Anointing/[place] [] Salvation [] Completed spiritual assessment [] Other: Impact on Illness or Injury [] Angry [] Fearful [] Anxious [] Often cries [] Exhaustion [] Unable to work [] Unable to attend oriental orthodox [] Unable to walk/stand [] Unable to read [] Unable to drive [] Unable to eat/drink [] Unable to sleep [] Unable to be with family [] Patient intubated [] Other: Summary Time spent with patient
[2020-07-17] MEDS: metoprolol tartrate 1 mg/1 mL SDV 5 mL 5 MG IV (12:53)
--- NOTE | 2020-07-17 13:49 | PM.PN ---
Subjective Subjective: Interval history: the patient looks and feels better. Awake and alert. No confusion. Oriented.Follows instructions appropriately. Responses are adequate mostly but slow. facial oximetry seems to be resolved. No acute distress. Denies any uncontrolled pain. Denies any weakness. No nausea or vomiting. No chest pain, shortness of breath, cough, palpitations Vitals/I&O/Wt Last Vital Signs Temp 98.6 F 07/17/20 11:04 Pulse 95 07/17/20 13:19 Resp 16 07/17/20 13:19 BP 126/76 07/17/20 11:04 Pulse Ox 96 07/17/20 13:19 07/16/20 07/17/20 07/17/20 22:59 06:59 14:59 Intake Total 1000 / 2693.75 240 / 240 Output Total 100 / 100 Balance 1000 / 2293.75 140 / 140 Weight last 48 hrs Weight 74.389 kg Physical Exam Narrative: EXAM NARRATIVE: Awake, alert,oriented. acute distress. Skin is warm and dry. Moist mucous membranes. Normal speech. Eyes Elias, extraocular muscle intact. Neck supple. No JVD. Midline trachea. Lungs decreased breath sounds bilaterally. No respiratory distress Heart S1, S2, regular Abdomen soft, nontender, bowel sounds are present Extremities no cyanosis no calf tenderness bilaterally Data : 07/17/20 04:52 07/17/20 04:52 Micro: Microbiology 07/15/20 19:04 Blood Culture - Preliminary Blood NEGATIVE TO DATE 07/15/20 17:50 Blood Culture - Preliminary Blood NEGATIVE TO DATE A&P Assessment and plan (1) Dysphagia: Status: Acute (2) Facial asymmetry: Status: Acute (3) Acute kidney injury: Status: Acute (4) Acute dehydration: Status: Acute (5) Abnormal liver enzymes: Status: Acute (6) Blood loss anemia: Status: Acute (7) GI bleed: Status: Acute (8) Thrombocytopenia: Status: Acute (9) Petechial rash: Status: Acute (10) Hyperkalemia: Status: Acute Additional A&P Information Dysphagia Patient has left-sided facial droop, is endorsing these findings were present 2 to 3 weeks ago as well Patient is extremely dry, not able to articulate due to dryness of mouth, I have requested nursing staff to provide him mouth swab Speech evaluation in the morning, patient is denying frequent episodes of aspiration CT head unremarkable I do suspect CVA with extreme dryness of mouth to be the etiology of this dysphagia, consider MRI in the morning please Recent EGD did not show any intraluminal mass Acute dehydration Secondary to poor p.o. intake I would resume clear liquid diet along with resuscitation MERLIN with hyperkalemia secondary to dehydration: Anticipate improvement with fluid resuscitation Hold nephrotoxic agents, hold lisinopril Hold Imdur, patient was hypotensive on admission as well, did not require stress dose steroids Chronic blood loss anemia: Hemoglobin stable GI endoscopy results mentioned in my HPI Thrombocytopenia with petechial rash Avoid DVT prophylaxis with anticoagulant, use SCDs for now Patient had received vancomycin and Zosyn in the ER (monitor platelet count after antibiotic usage however single doses are not associated with bone marrow suppression or antibody formation) which I would hold for now as she is covered for next 24 hours, I am still waiting on gallbladder ultrasound report, no ductal dilation noticed on abdominal CT scan Abnormal transaminases Worsening transaminases with high alkaline phosphatase and bilirubin, CT abdomen shows concerning changes for metastatic lesions, no ductal dilation, bowel ultrasound pending, status post Zosyn in the ER Afebrile not septic, no signs of cholangitis Patient is awake alert oriented x3 GCS 15 I do suspect hepatic lesion to be the cause of worsening transaminases Lung mass biopsy results reviewed with the patient and his Limited resuscitation: Does not want CPR or intubation okay with ice admission and use of medications Clear liquid diet for now Avoid DVT prophylaxis with anticoagulant, use SCD [place] Dysphagia. Pending speech evaluation. N.p.o. Receiving IV fluids for dehydration. Not sure what cause is. Will order MRI to rule out CLUBHOUSE ATTENDANT abnormalities. Has associated facial droop and confusion. Dehydration. Continue IV fluids.hopefully will be cleared to start eating soon. Hyperkalemia has resolved. Continue IV fluids. Acute kidney injury. Probably secondary to dehydration. Continue hydration and monitoring. avoiding nephrotoxic medications. Chronic blood loss anemia. Currently hemoglobin and hemodynamics are stable. Continue monitoring. Thrombocytopenia. Slowly worsening since beginning of June. Close monitoring. Avoid medications. Hem on consult in outpatient settings after discharge. DVT prophylaxis. Teds and SCDs. Abnormal LFTs. Probably secondary to liver metastatic lesions and tumor burden. Advanced prostate cancer with distant metastatic lesions. has lever, lung, bone lesions. I discussed with his oncologist Dr. Allen. It appears that the patient has 2 different types of cancer. 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 Chemotherapy for this type of cancer would be very taxing and probably cardiotoxic. Dr. Allen doesn't believe that the patient would be able to tolerate this type of treatment. 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 It sounds like the patient needed another biopsy in order to understand possible treatment options. However previously he has refused that. Dr. Allen believes that:/Hospice care would be appropriate for this patient. I will communicate this information to the patient and his family. Earlier I also spoke with his son and his over the phone. I answer to all their questions to best of my knowledge. They were satisfied with the conversation. DNR. Not sure why he is on steroids at home. We will try to find out more from the family. for now we'll continue this treatments. History of coronary artery disease. the patient also has runs of atrial fibrillation with RVR. Will ask his electronic device repairer Dr. Denton to see him. Stable currently. No evidence of acute coronary syndrome. Attestations Medical Necessity Statement*: the patient requires inpatient hospitalization for diagnosis and treatment of his current conditions described in assessment and plan. Coding Level of Care Code Acute Optician Apprentice for [facility] Fwd Diagnoses Dysphagia R13.10 Facial asymmetry Q67.0 Acute kidney injury N17.9 Acute dehydration E86.0 Abnormal liver enzymes R74.8 Blood loss anemia D50.0 GI bleed K92.2 Thrombocytopenia D69.6 Petechial rash R23.3 Hyperkalemia E87.5
--- NOTE | 2020-07-17 19:03 | P.CONIM_ITS ---
Providers/Reason For Consult Consulting Physican/Specialty*: Cardiology Reason for Consult*: Atrial fibrillation with rapid ventricle response, multivessel coronary artery disease Attending Physician: Kj Mckenzie Primary Care Provider: Stevie Mullen DO History of Present Illness History of Present Illness Micah Bhandari is a 74 year old male past medical history significant for multivessel coronary artery disease requiring CAbg, metastatic carcinoma of prostate, history of GI bleed not a good candidate for intervention with guarded long-term prognosis was suggested with medical management for CAD has been admitted in the hospital with confusion dehydration acute renal failure and liver failure. He was also noted to be in A. fib with RVR it is the reason we have been asked to see the patient. Patient appeared to be coherent but cannot talk much he denies any chest pain. He has generalized swelling but appears to be dry due to volume contraction possible due to third spacing. He denies chest pain PND orthopnea. Review of Systems Const: Reports: chills, body aches, change in appetite, change in weight, fatigue and malaise; Denies: fever(s) Eyes: Denies: change in vision, blurry vision, photophobia or eye discomfort ENMT: Reports: throat pain, odynophagia, hoarseness and oral sores; Denies: enlarged tonsils or dental pain Card: Denies: chest pain Resp: Denies: dyspnea GI: Reports: abdominal pain, nausea, dysphagia and heartburn; Denies: vomiting : Denies: flank pain or dysuria Musc: Reports: extremity swelling and limited range of motion; Denies: neck pain or back pain Skin/Breast: Reports: new lesions and lesions; Denies: rash Neuro: Reports: weakness in extremities and difficulty walking; Denies: headache(s) Psych: Reports: irritability; Denies: depression Endo: Denies: polyuria Sameer/Lymph: Reports: easy bruising, easy bleeding, petechiae and purpura All/Imm: Denies: urticaria or acute wheezing Meds/Allergies Home Medications and Allergies Home Medications Medication Instructions Recorded Confirmed Last Taken Type abiraterone 250 mg tablet 1,000 mg PO DAILY 04/29/20 07/15/20 07/15/20 History ascorbic acid (vitamin C) 500 mg 500 mg PO BID cap 04/29/20 07/15/20 05/22/20 History capsule calcium citrate-ergocalciferol 1 tab PO BID tab 04/29/20 07/15/20 05/22/20 History (vitamin D2) 250 mg-100 unit tablet cinnamon bark 500 mg capsule 1,000 mg PO DAILY cap 04/29/20 07/15/20 05/22/20 History flaxseed oil 1,000 mg capsule 1,000 mg PO BID 04/29/20 07/15/20 05/22/20 History garlic 1,000 mg capsule 1,000 mg PO DAILY 04/29/20 07/15/20 04/24/20 History enelotos-cbx-osqor 200 mcg-lycop 1 tab PO DAILY tab 04/29/20 07/15/20 05/22/20 History 175 mcg-lutei 250 mcg-herb 178 tablet nitroglycerin 0.4 mg sublingual 0.4 mg SUBLINGUAL Q5M PRN 04/29/20 07/15/20 Unknown History tablet potassium gluconate 595 mg (99 mg) 595 mg PO DAILY 04/29/20 07/15/20 05/22/20 History tablet Glucosamine-Chondroitin Complx 1 cap PO BID 05/22/20 07/15/20 05/22/20 History milk thistle 175 mg PO DAILY 05/22/20 07/15/20 05/21/20 History rosuvastatin 10 mg PO BEDTIME 05/22/20 07/15/20 07/15/20 History isosorbide mononitrate 30 mg 15 mg PO BID #90 tab 06/17/20 07/15/20 07/15/20 Rx tablet,extended release 24 hr lisinopril 20 mg tablet 10 mg PO BID #90 tab 06/17/20 07/15/20 07/13/20 Rx vismodegib 150 mg capsule 150 mg PO DAILY 06/17/20 07/15/20 07/14/20 History metoprolol succinate 25 mg 12.5 mg PO QAM #90 tab 06/19/20 07/15/20 07/15/20 Rx tablet,extended release 24 hr ranolazine 500 mg tablet,extended 500 mg PO BID #90 tab 07/03/20 07/15/20 07/15/20 Rx release,12 hr Eligard (3 month) 22.5 mg SUBCUT Q90D 07/08/20 07/15/20 Unknown History prednisone 5 mg PO BID 07/08/20 07/15/20 07/15/20 History ferrous gluconate 324 mg PO BIDWM #60 tab 07/11/20 07/15/20 07/15/20 Rx pantoprazole [Protonix] 40 mg PO BID #30 each 07/11/20 07/15/20 07/15/20 Rx pantoprazole 40 mg PO DAILY 07/15/20 07/15/20 Unknown History Allergies Allergy/AdvReac Type Severity Reaction Status Date / Time No Known Allergies Allergy Verified 07/15/20 18:34 Current Medications Current Medications Generic Name Dose Route Start Last Admin Trade Name Mili PRN Reason Stop Dose Admin Ferrous Gluconate 324 mg 07/16/20 10:00 07/16/20 09:07 Ferrous Gluconate PO 324 mg Q48H LUARA Administration Dextrose/Sodium Chloride 1,000 mls @ 60 mls/hr 07/15/20 21:33 07/17/20 09:33 Dextrose 5%-Sod Chloride 0.45% IV Not Given .[id number] LAUAR Morphine Sulfate 2 mg 07/15/20 21:33 07/16/20 08:06 Morphine IVP 2 mg Q4H PRN Administration SEVERE PAIN Pantoprazole Sodium 40 mg 07/16/20 09:00 07/17/20 17:29 Protonix PO 40 mg BID LAURA Administration Prednisone 5 mg 07/16/20 09:00 07/17/20 17:29 Prednisone PO 5 mg BID LAURA Administration Additional Medication Information Generic Name Dose Route Start Last Admin Trade Name Mili PRN Reason Stop Dose Admin Ferrous Gluconate 324 mg 07/16/20 10:00 07/16/20 09:07 Ferrous Gluconate PO 324 mg Q48H LAURA Administration Dextrose/Sodium Chloride 1,000 mls @ 100 mls/hr 07/15/20 21:33 07/16/20 12:46 Dextrose 5%-Sod Chloride 0.45% IV 75 mls/hr .Q10H LAURA Administration Morphine Sulfate 2 mg 07/15/20 21:33 07/16/20 08:06 Morphine IVP 2 mg Q4H PRN Administration SEVERE PAIN Pantoprazole Sodium 40 mg 07/16/20 09:00 07/16/20 09:07 Protonix PO 40 mg BID LAURA Administration Prednisone 5 mg 07/16/20 09:00 07/16/20 09:07 Prednisone PO 5 mg BID LAURA Administration PFSH Acute PFSH: Medical History ASHD (arteriosclerotic heart disease) 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 30% proximal LM stenosis, 50% distal LM stenosis. Last coronary angiogram 08/2019. BCC (basal cell carcinoma of skin) Heart disease Hyperlipidemia Hypertension Mass Moderate aortic stenosis Murmur Prostate cancer Surgical History H/O basal cell carcinoma excision H/O circumcision H/O colonoscopy 2009 History of appendectomy History of colon resection 14 inches removed History of testicular surgery Family History Daughter Cancer skin bcc Brother Cancer skin bcc Mother Cancer colon Sister Diabetes Other CAD (coronary artery disease) Denies family history of Anesthesia complication Bleeding disorder Social History Smoking and tobacco status: former smoker Alcohol intake: never Household members: spouse Marital status: Current occupational status: retired History of recent travel: No Dietary Habits: Current diet type/program: other (low cholesterol) Vitals/I&O/Wt Last Vital Signs Temp 97.6 F 07/17/20 15:00 Pulse 112 H 07/17/20 15:00 Resp 18 07/17/20 15:00 BP 92/56 07/17/20 15:00 Pulse Ox 94 07/17/20 15:00 07/17/20 07/17/20 07/17/20 06:59 14:59 22:59 Intake Total 1000 / 2693.75 240 / 240 Output Total 100 / 100 Balance 1000 / 2293.75 140 / 140 Physical Exam Narrative: EXAM NARRATIVE: GENERAL: Patient is alert, awake but lethargic NECK: No jugular vein distension. HEENT: No cyanosis. No icterus. Pallor positive HEART: Regularly regular S1 and S2. No murmur, rub or gallop. LUNGS: Decreased breath sound bilaterally. ABDOMEN: Soft, nontender and distended. Possible ascites CENTRAL NERVOUS SYSTEM: Grossly nonfocal. EXTREMITIES: Lower extremities with 1+ edema bilaterally. Data Micro: Micro: Microbiology 07/15/20 19:04 Blood Culture - Pr eliminary Blood NEGATIVE TO MICHOACANO E 07/15/20 17:50 Blood Culture - Pr eliminary Blood NEGATIVE TO MICHOACANO E A&P Assessment and plan (1) Atrial fibrillation: Patient has metastatic CA prostate to lungs. Due to tumor effect inflammation in the vicinity and second to hyperadrenergic state he is exhibiting atrial fibrillation with RVR. He also appeared to be dehydrated volume contracted. We therefore recommend IV fluid I will give him bolus of 500 mL followed by 100 mL/h. I will hold beta-donna and calcium channel donna for now. Due to history of GI bleed and severe anemia no anticoagulation recommended at this point Status: Acute Qualifiers: Atrial fibrillation type: paroxysmal Qualified Code(s): I48.0 - Paroxysmal atrial fibrillation (2) Acute kidney injury: Continue IV fluid. Discontinue CECY inhibitor Status: Acute (3) Moderate aortic stenosis: Continue conservative management Status: Acute (4) Abnormal liver enzymes: As per medicine Status: Acute (5) ASHD (arteriosclerotic heart disease): Patient has multivessel coronary artery disease requiring bypass surgery he is not a good candidate for intervention due to guarded short and long-term prognosis. I have discussed with patient's family already. He is on optimal medical management. We will continue with. Currently he denies any chest pain PND orthopnea Status: Acute Coding Level of Care Code New Pt Acute Powder Compounder for [facility] Patient Type New History Detailed Exam Detailed Medical Decision Making Moderate Complexity Diagnoses Atrial fibrillation I48.0 Atrial fibrillation type: paroxysmal Acute kidney injury N17.9 Moderate aortic stenosis I35.0 Abnormal liver enzymes R74.8 ASHD (arteriosclerotic heart disease) I25.10
--- NOTE | 2020-07-17 19:37 | PC.NURSE ---
Dr. Denton assessed patient at bedside. Verbal order received for NS @100 with a 500ml bolus ONCE NOW. Patient manual BP 96/64. HR is 125 with A. FIb.
[2020-07-17] MEDS: sodium chloride 0.9% 500 ML 999 ML IV (20:01)
[2020-07-17] MEDS: sodium chloride 0.9% 1,000 ML 100 ML IV (20:05)
[2020-07-18] VITALS (9 sets, daily range): BP systolic 88–119; BP diastolic 56–76; PULSE 70–123; RESP 18–22; TEMP 36.6–37.2; O2SAT 92–98
[2020-07-18 06:27] LABS: Alanine Aminotransferase 230 U/L (0-41); Albumin Level 2.8 g/dL (3.5-5.2); Alkaline Phosphatase 646 IU/L (40-130); Anion Gap 17.9 (5-19); Aspartate Amino Transferase 691 U/L (0-40); Blood Urea Nitrogen 43 mg/dL (8-23); Calcium 8.3 mg/dL (8.5-10.5); Carbon Dioxide 18 mmol/L (22-29); Chloride 104 mmol/L (98-107); Glucose 121 mg/dL (65-115); Magnesium 2.2 mg/dL (1.7-2.3); Osmolality Calculated 292 mOsm/kg (285-295); Potassium 4.9 mmol/L (3.5-5.1); Sodium 135 mmol/L (136-145); Total Bilirubin 2.5 mg/dL (0.15-1.2); Total Protein 4.8 g/dL (6.6-8.7)
[2020-07-18 06:32] LABS: Basophils % 0.5 %; Eosinophils % 0.3 %; Hematocrit 31.8 % (42.0-52.0); Hemoglobin 10.4 g/dL (11.7-16.6); Lymphocytes % 16.5 %; Mean Corpuscular HGB Conc 32.7 g/dL (30.0-36.0); Mean Corpuscular Hemoglobin 30.7 pg (28.0-34.0); Mean Corpuscular Volume 93.8 fL (80-94); Mean Platelet Volume 8.6 fL (7.4-10.4); Monocytes # 0.5 10^3/uL (0.2-0.9); Monocytes % 8.5 %; Neutrophils # 3.69 10^3/uL (1.8-7.7); Neutrophils % 62.7 %; Nucleated Red Blood Cells # 0.5 /100WBC; Nucleated Red Blood Cells % 8.7 %; Platelet Count 50 10^3/cmm (130-400); Red Blood Count 3.39 10^6/uL (4.1-5.3); White Blood Count 5.9 10^3/uL (4.0-10.0)
[2020-07-18] MEDS: sodium chloride 0.9% 1,000 ML 100 ML IV (06:42)
[2020-07-18 07:29] LABS: Slide Review Slide Review Perform
--- NOTE | 2020-07-18 09:02 | PC.NUTR ---
NUTR PPN RECOMMENDATIONS: Peripheral Nutrition rate of 70 ml/hr providing 857 kcal (50%) and 71 g PRO (95%)(%NEEDS). Suggest adding 50 g Lipids to PPN to add 500 kcal for total 1357 kcal (80%)(%NEEDS). Start PPN at 30 ml/hr and increase by 10 ml Q4H as tolerated till goal rate is met.
--- NOTE | 2020-07-18 09:41 | PC.NURSE ---
Physician notified due to pt blood pressure being 88/56, Dr Mckenzie ordered for pt to have a 500ml/hr fluid bolus.
--- NOTE | 2020-07-18 10:15 | MR_ITS ---
WS: [id number] MRI HEAD WITHOUT CONTRAST TECHNIQUE: Sagittal T1, T2 axial, T2 axial FLAIR, axial and coronal T1 images, axial susceptibility w eighted imaging, axial diffusion weighted images, and coronal T2 images were obtained. CLINICAL INFORMATION: confusion, facial droop, dysphagia COMPARISON: CT July 15, 2020 FINDINGS: No evidence of restricted diffusion to suggest acute ischemia. Ventricular system and basal cisterns are patent. Moderate small vessel changes. Moderate parenchymal volume loss. Normal posterior fossa. Normal vascular flow voids at the skull base. No extra-axial fluid collections. Paranasal sinuses are well aerated. Mastoid air cells are well aerated. 4 mm focus of hemosiderin in the left parietal white matter. Normal optic chiasm and pituitary infundibulum. Moderate symmetric at rophy involving the temporal lobes and hippocampal formations. MR/MR head wo con* [id number] IMPRESSION: 1. No evidence of acute diffusion to suggest acute ischemia. 2. Moderate small vessel changes with moderate parenchymal volume loss. 3. 5 mm focus of hemosiderin in the left parietal lobe consistent with tiny fo cus of chronic microhemorrhage. 4. Moderate symmetric atrophy involving the temporal lobes and hippocampal for mations.
--- NOTE | 2020-07-18 10:42 | PM.PN ---
Subjective Subjective: Interval history: Patient is not feeling well. He reports generalized weakness. Blood pressure was low this morning. No nausea or vomiting. No shortness of breath. Medications: Reviewed: Yes Medication Review Details: Generic Name Dose Route Start Last Admin Trade Name Freq PRN Reason Stop Dose Admin Ferrous Gluconate 324 mg 07/16/20 10:00 07/16/20 09:07 Ferrous Gluconat e PO 324 mg Q48H LAURA Administration Sodium Chloride 1,000 mls @ 125 m ls/hr 07/17/20 19:45 07/18/20 06:42 Sodium Chloride 0.9% IV 100 mls/hr .Q8H LAURA Administration Morphine Sulfate 2 mg 07/15/20 21:33 07/16/20 08:06 Morphine IVP 2 mg Q4H PRN Administration SEVERE PAIN Pantoprazole Sodiu m 40 mg 07/16/20 09:00 07/17/20 17:29 Protonix PO 40 mg BID LAURA Administration Prednisone 5 mg 07/16/20 09:00 07/17/20 17:29 Prednisone PO 5 mg BID LAURA Administration Vitals/I&O/Wt Last Vital Signs Temp 98.1 F 07/18/20 07:52 Pulse 115 H 07/18/20 08:21 Resp 18 07/18/20 08:21 BP 88/56 07/18/20 07:52 Pulse Ox 96 07/18/20 08:21 07/17/20 07/18/20 07/18/20 22:59 06:59 14:59 Intake Total 1000 / 1240 Balance 1000 / 1140 Physical Exam Narrative: EXAM NARRATIVE: Awake, alert,oriented. Looks tired and weak. Responses are adequate Skin is warm and dry. Moist mucous membranes. Normal speech. Eyes Elias, extraocular muscle intact. Neck supple. No JVD. Midline trachea. Lungs decreased breath sounds bilaterally. No respiratory distress Heart S1, S2, regular Abdomen soft, nontender, bowel sounds are present Extremities no cyanosis no calf tenderness bilaterally Data : 07/18/20 05:23 07/18/20 05:23 A&P Assessment and plan (1) Dysphagia: Status: Acute (2) Facial asymmetry: Status: Acute (3) Acute kidney injury: Status: Acute (4) Acute dehydration: Status: Acute (5) Abnormal liver enzymes: Status: Acute (6) Blood loss anemia: Status: Acute (7) GI bleed: Status: Acute (8) Thrombocytopenia: Status: Acute (9) Petechial rash: Status: Acute (10) Hyperkalemia: Status: Acute Additional A&P Information Dysphagia Patient has left-sided facial droop, is endorsing these findings were present 2 to 3 weeks ago as well Patient is extremely dry, not able to articulate due to dryness of mouth, I have requested nursing staff to provide him mouth swab Speech evaluation in the morning, patient is denying frequent episodes of aspiration CT head unremarkable I do suspect CVA with extreme dryness of mouth to be the etiology of this dysphagia, consider MRI in the morning please Recent EGD did not show any intraluminal mass Acute dehydration Secondary to poor p.o. intake I would resume clear liquid diet along with resuscitation MERLIN with hyperkalemia secondary to dehydration: Anticipate improvement with fluid resuscitation Hold nephrotoxic agents, hold lisinopril Hold Imdur, patient was hypotensive on admission as well, did not require stress dose steroids Chronic blood loss anemia: Hemoglobin stable GI endoscopy results mentioned in my HPI Thrombocytopenia with petechial rash Avoid DVT prophylaxis with anticoagulant, use SCDs for now Patient had received vancomycin and Zosyn in the ER (monitor platelet count after antibiotic usage however single doses are not associated with bone marrow suppression or antibody formation) which I would hold for now as she is covered for next 24 hours, I am still waiting on gallbladder ultrasound report, no ductal dilation noticed on abdominal CT scan Abnormal transaminases Worsening transaminases with high alkaline phosphatase and bilirubin, CT abdomen shows concerning changes for metastatic lesions, no ductal dilation, bowel ultrasound pending, status post Zosyn in the ER Afebrile not septic, no signs of cholangitis Patient is awake alert oriented x3 GCS 15 I do suspect hepatic lesion to be the cause of worsening transaminases Lung mass biopsy results reviewed with the patient and his Limited resuscitation: Does not want CPR or intubation okay with ice admission and use of medications Clear liquid diet for now Avoid DVT prophylaxis with anticoagulant, use SCD [place] Dysphagia. N.p.o. Receiving IV fluids for dehydration. Not sure what cause is. Pending MRI to rule out GEODETIC TECHNICIAN abnormalities. The next step would be chest/neck CT to evaluate upper GI tract. For now we will start PPN per dietary recommendations. Advanced prostate cancer with distant metastatic lesions. has lever, lung, bone lesions. I discussed with his oncologist Dr. Allen. It appears that the patient has 2 different types of cancer. 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 Chemotherapy for this type of cancer would be very taxing and probably cardiotoxic. Dr. Allen doesn't believe that the patient would be able to tolerate this type of treatment. 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 It sounds like the patient needed another biopsy in order to understand possible treatment options. However previously he has refused that. Dr. Allen believes that:/Hospice care would be appropriate for this patient. I will communicate this information to the patient and his family. Earlier I also spoke with his son and his over the phone. I answer to all their questions to best of my knowledge. They were satisfied with the conversation. I am going to speak with the family again. Today Mr. Bhandari expressed a desire to consider hospice. Hyperkalemia has resolved. Acute kidney injury and dehydration. Will increase IV fluid rate. We will monitor. Chronic blood loss anemia. Continue monitoring. Will consider transfusion if H&H drops. Thrombocytopenia. Slowly worsening since beginning of June. Close monitoring. Avoid medications. Hem/Onc consult in outpatient settings after discharge. DVT prophylaxis. Teds and SCDs. No anticoagulation due to severe thrombocytopenia. Abnormal LFTs. Probably secondary to liver metastatic lesions and tumor burden. DNR. Not sure why he is on steroids at home. We will try to find out more from the family. for now we'll continue this treatments. History of coronary artery disease/A. fib. I appreciate dr Denton's input. Not a candidate for any cardiac procedures due to cancer. Attestations Medical Necessity Statement*: The plan of care requires him to remain hospitalized. Coding Level of Care Code Acute Reading Teacher for Chg Fwd Diagnoses Dysphagia R13.10 Facial asymmetry Q67.0 Acute kidney injury N17.9 Acute dehydration E86.0 Abnormal liver enzymes R74.8 Blood loss anemia D50.0 GI bleed K92.2 Thrombocytopenia D69.6 Petechial rash R23.3 Hyperkalemia E87.5
--- NOTE | 2020-07-18 12:39 | PC.NURSE ---
Dr notified due to pt having a heart rate of 130's-140's consistently and telemetry is picking up A-Fib. Dr. Mckenzie ordered for a bolus of 500 ml ns and 5mg of metoprolol ivp now.
--- NOTE | 2020-07-18 12:49 | PC.SLP ---
EXPLOITATION ANALYST attempted to follow-up with the pt, however, the pt indicated that he was not feeling well and was not up to it. EXPLOITATION ANALYST will attempt to follow-up with the pt tomorrow.
[2020-07-18] MEDS: metoprolol tartrate 1 mg/1 mL SDV 5 mL 5 MG IV (12:51)
[2020-07-18] MEDS: sodium chloride 0.9% 500 ML 999 ML IV (12:53)
--- NOTE | 2020-07-18 13:30 | PC.NURSE ---
patients heart rate ranging from 120-145 a-fib. Patient pale but otherwise asymptomatic. Dr. Mckenzie notified who gave telephone orders for 500mL bolus of 0.9% NS over 30 mins and 5mg iv metoprolol. blood pressure 119/66 before dose of metoprol. after 2.5mg pt bp went to 97/60 HR 122. after two minutes bp was 115/62 HR 118, the other 2.5mg metoprolol given to patient. when the whole 5mg iv metoprolol was administered, pt stated he felt better bp was 111/74 HR 108. bolus still infusing at this time.
--- NOTE | 2020-07-18 18:15 | PC.NURSE ---
Pt has been running sinus tachy most of the day, at approximately 1245 the pt began to run 130's-140's on telemetry while resting in bed with the telemetry showing A-fib. Dr Mckenzie notified and ordered for pt to have a fluid bolus of 500 and then 5mg of metoprolol which brought the pt to sinus tach at about 105-115. Estrella MINOR charge nurse gave the metoprolol. Pt has PPN going through iv at this time and is scheduled for a picc line with consent signed for tomorrow so that he can receive his PPN through picc instead of iv. PPN was started at 30ml/hr at 1700 and is to be increased by 10ml/hr q8 hours until it reaches 70ml/hr. there is swelling in bilateral extremities along with swelling in left forearm with iv site intact and patent. Pt has voided twice with walking to bathroom assisted and then used the urinal once this shift. Dr Mckenzie notified of output.
--- NOTE | 2020-07-18 18:36 | P.PN_ITS ---
Subjective Subjective: Interval history: Continues to feel weak he is short of breath with atrial fibrillation and rapid ventricle response. Medications: Reviewed: Yes Medication Review Details: Generic Name Dose Route Start Last Admin Trade Name Mili PRN Reason Stop Dose Admin Ferrous Gluconate 324 mg 07/16/20 10:00 07/16/20 09:07 Ferrous Gluconat e PO 324 mg Q48H LAURA Administration Sodium Chloride 1,000 mls @ 125 m ls/hr 07/17/20 19:45 07/18/20 06:42 Sodium Chloride 0.9% IV 100 mls/hr .Q8H LAURA Administration Morphine Sulfate 2 mg 07/15/20 21:33 07/16/20 08:06 Morphine IVP 2 mg Q4H PRN Administration SEVERE PAIN Pantoprazole Sodiu m 40 mg 07/16/20 09:00 07/17/20 17:29 Protonix PO 40 mg BID LAURA Administration Prednisone 5 mg 07/16/20 09:00 07/17/20 17:29 Prednisone PO 5 mg BID LAURA Administration Vitals/I&O/Wt Last Vital Signs Temp 97.8 F 07/18/20 15:49 Pulse 108 H 07/18/20 15:49 Resp 22 H 07/18/20 15:49 BP 115/76 07/18/20 15:49 Pulse Ox 92 07/18/20 15:49 07/18/20 07/18/20 07/18/20 06:59 14:59 22:59 Intake Total 1000 / 2740 0 / 0 240 / 240 Output Total 100 / 100 Balance 1000 / 2640 0 / 0 140 / 140 Physical Exam Narrative: EXAM NARRATIVE: GENERAL: Patient is alert, awake and oriented x3. NECK: No jugular vein distension. HEENT: No cyanosis. No icterus. No pallor. HEART: Irregularly irregular r S1 and S2. No murmur, rub or gallop. LUNGS: Clear to auscultate bilaterally. ABDOMEN: Soft, nontender and nondistended. Positive bowel sounds. No guarding, rebound or tenderness. CENTRAL NERVOUS SYSTEM: Grossly nonfocal. EXTREMITIES: Lower extremities with 1+ edema bilaterally. Data : 07/18/20 05:23 07/18/20 05:23 A&P Assessment and plan (1) Atrial fibrillation: Due to high tumor effect and inflammation patient remains on the faster heart rate. I do not think so we will be able to control it with jahaira donna I may will add amiodarone for now by mouth. Status: Acute Qualifiers: Atrial fibrillation type: paroxysmal Qualified Code(s): I48.0 - Paroxysmal atrial fibrillation (2) Acute kidney injury: Continue IV fluid. r Status: Acute (3) Moderate aortic stenosis: Continue conservative management Status: Acute (4) Abnormal liver enzymes: As per medicine Status: Acute (5) ASHD (arteriosclerotic heart disease): Continue medical management long-term prognosis due to metastatic carcinoma is guarded. I have detailed discussion with the patient and and his regarding guarded poor long-term prognosis. At this point hospice care may need to be considered Status: Acute Attestations Medical Necessity Statement*: Requires continuation of hospitalization for above defined care Coding Level of Care Code Established Pt Acute Clam Shucking Machine Tender for Chg Fwd Patient Type Established History Expanded Problem Focused Exam Expanded Problem Focused Medical Decision Making Moderate Complexity Diagnoses Atrial fibrillation I48.0 Atrial fibrillation type: paroxysmal Acute kidney injury N17.9 Moderate aortic stenosis I35.0 Abnormal liver enzymes R74.8 ASHD (arteriosclerotic heart disease) I25.10
[2020-07-18] MEDS: sodium chloride 0.9% 1,000 ML 95 ML IV (21:29)
[2020-07-18] MEDS: sodium chloride 0.9% 1,000 ML 999 ML IV (21:57)
--- NOTE | 2020-07-18 22:37 | PC.NURSE ---
Patient refused amiodarone stated that he was unable to swallow pills. Advised patient that it had be crushed up and put with apple sauce and patient still expressed his inability to swallow. Dr. Caraballo was notified that patient was unable to take amiodarone. Patient's HR 158, BP 95/59 physician ordered 1 liter fluid bolus and requested too be notified if patient's HR continued to be in the 150's.
[2020-07-18] MEDS: morphine 4 mg/mL SDV 1 mL 2 MG IVP (23:10)
[2020-07-19] VITALS (8 sets, daily range): BP systolic 102–137; BP diastolic 54–80; PULSE 97–121; RESP 14–25; TEMP 36.3–36.7; O2SAT 92–100
[2020-07-19] MEDS: morphine 4 mg/mL SDV 1 mL 2 MG IVP ×3 (04:41→22:37)
[2020-07-19 04:53] LABS: Hematocrit 31.3 % (42.0-52.0); Hemoglobin 10.6 g/dL (11.7-16.6); Mean Corpuscular HGB Conc 33.9 g/dL (30.0-36.0); Mean Corpuscular Hemoglobin 32.5 pg (28.0-34.0); Mean Platelet Volume 9.8 fL (7.4-10.4); Platelet Count 59 10^3/cmm (130-400); Red Blood Count 3.26 10^6/uL (4.1-5.3); Red Cell Distribution Width 20.6 % (12.1-15.1); White Blood Count 5.7 10^3/uL (4.0-10.0)
[2020-07-19 05:12] LABS: Albumin Level 2.4 g/dL (3.5-5.2); Blood Urea Nitrogen 51 mg/dL (8-23); Calcium 7.8 mg/dL (8.5-10.5); Carbon Dioxide 13 mmol/L (22-29); Chloride 104 mmol/L (98-107); Glucose 134 mg/dL (65-115); Magnesium 2.2 mg/dL (1.7-2.3); Phosphorus 3.7 mg/dL (2.5-4.5); Sodium 133 mmol/L (136-145)
[2020-07-19 05:32] LABS: Anion Gap 20.9 (5-19); Potassium 4.9 mmol/L (3.5-5.1)
[2020-07-19 07:34] LABS: Slide Review Slide Review Perform
[2020-07-19 07:39] LABS: Absolute Neutrophil 3.2 10^3/cmm (1.4-6.5); Absolute Segmented Neutrophil 1.4 10/cmm (1.6-7.1); Band Neutrophils Absolute 1.9 10^3/cmm (0.0-1.2); Corrected White Blood Count 4.9 10^3/cmm (4.8-10.8); Lymphocytes 28 %; Monocytes Absolute 0.2 10^3/cmm (0.1-0.6); Platelet Estimate Decreased (Normal); Polychromasia Trace; Segmented Neutrophils 24 %; Total Cells Counted 100 (0-100)
--- NOTE | 2020-07-19 12:30 | PC.SOCIAL ---
IMM Page [address] [facility] explained to patient's spouse over the phone. She verbalizes understanding. Initialed, dated, and timed and placed in chart. Copy provided to patient's bedside.
--- NOTE | 2020-07-19 13:11 | P.PN_ITS ---
Subjective Subjective: Interval history: The patient is sleeping. No evidence of pain or distress. I did wake him up. I discussed his condition with the nursing staff. Events are noted. Medications: Reviewed: Yes Medication Review Details: Generic Name Dose Route Start Last Admin Trade Name Freq PRN Reason Stop Dose Admin Amiodarone HCl 200 mg 07/18/20 19:00 07/19/20 10:36 Cordarone PO Not Given BID LAURA Ferrous Gluconate 324 mg 07/16/20 10:00 07/18/20 15:38 Ferrous Gluconat e PO Not Given Q48H LAURA Sodium Chloride 1,000 mls @ 125 m ls/hr 07/17/20 19:45 07/18/20 23:39 Sodium Chloride 0.9% IV 95 mls/hr .Q8H LAURA Infusion Amino Acids/Electr olytes 1,000 mls @ 0 mls /hr 07/18/20 14:00 07/18/20 16:53 Clinimix E 4.25% -10% IV 30 mls/hr .Q0M LAURA Administration As Directed Fat Emulsion Intra venous 250 mls @ 20.833 mls/hr 07/18/20 14:00 07/18/20 16:50 Intralipid 20% IV 20.8 mls/hr Q24H LAURA Administration Morphine Sulfate 2 mg 07/15/20 21:33 07/19/20 04:41 Morphine IVP 2 mg Q4H PRN Administration SEVERE PAIN Pantoprazole Sodiu m 40 mg 07/16/20 09:00 07/19/20 10:38 Protonix PO Not Given BID LAURA Prednisone 5 mg 07/16/20 09:00 07/19/20 10:43 Prednisone PO Not Given BID [facility] Vitals/I&O/Wt Last Vital Signs Temp 97.3 F L 07/19/20 11:09 Pulse 118 H 07/19/20 11:09 Resp 16 07/19/20 11:09 BP 108/58 07/19/20 11:09 Pulse Ox 92 07/19/20 11:09 07/18/20 07/19/20 07/19/20 22:59 06:59 14:59 Intake Total 1285.917 / 1285.917 0 / 1285.917 0 / 0 Output Total 175 / 175 150 / 325 Balance 1110.917 / 1110.917 -150 / 960.917 0 / 0 Physical Exam Narrative: EXAM NARRATIVE: The patient is weak and sleepy. There is no acute distress. No shortness of breath. No nausea or vomiting. Skin is warm and dry. Moist mucous membranes. Moves all extremities. No JVD. Data : 07/19/20 04:20 07/19/20 04:20 A&P Assessment and plan (1) Dysphagia: Status: Acute (2) Facial asymmetry: Status: Acute (3) Acute kidney injury: Status: Acute (4) Acute dehydration: Status: Acute (5) Abnormal liver enzymes: Status: Acute (6) Blood loss anemia: Status: Acute (7) GI bleed: Status: Acute (8) Thrombocytopenia: Status: Acute (9) Petechial rash: Status: Acute (10) Hyperkalemia: Status: Acute Additional A&P Information Dysphagia Patient has left-sided facial droop, is endorsing these findings were present 2 to 3 weeks ago as well Patient is extremely dry, not able to articulate due to dryness of mouth, I have requested nursing staff to provide him mouth swab Speech evaluation in the morning, patient is denying frequent episodes of aspiration CT head unremarkable I do suspect CVA with extreme dryness of mouth to be the etiology of this dysphagia, consider MRI in the morning please Recent EGD did not show any intraluminal mass Acute dehydration Secondary to poor p.o. intake I would resume clear liquid diet along with resuscitation MERLIN with hyperkalemia secondary to dehydration: Anticipate improvement with fluid resuscitation Hold nephrotoxic agents, hold lisinopril Hold Imdur, patient was hypotensive on admission as well, did not require stress dose steroids Chronic blood loss anemia: Hemoglobin stable GI endoscopy results mentioned in my HPI Thrombocytopenia with petechial rash Avoid DVT prophylaxis with anticoagulant, use SCDs for now Patient had received vancomycin and Zosyn in the ER (monitor platelet count after antibiotic usage however single doses are not associated with bone marrow suppression or antibody formation) which I would hold for now as she is covered for next 24 hours, I am still waiting on gallbladder ultrasound report, no ductal dilation noticed on abdominal CT scan Abnormal transaminases Worsening transaminases with high alkaline phosphatase and bilirubin, CT abdomen shows concerning changes for metastatic lesions, no ductal dilation, bowel ultrasound pending, status post Zosyn in the ER Afebrile not septic, no signs of cholangitis Patient is awake alert oriented x3 GCS 15 I do suspect hepatic lesion to be the cause of worsening transaminases Lung mass biopsy results reviewed with the patient and his Limited resuscitation: Does not want CPR or intubation okay with ice admission and use of medications Clear liquid diet for now Avoid DVT prophylaxis with anticoagulant, use SCD [place] Dysphagia. N.p.o. Receiving IV fluids for dehydration. Not sure what cause is. Pending MRI to rule out WALLPAPER PRINTER HELPER abnormalities. The next step would be chest/neck CT to evaluate upper GI tract. For now we will start PPN per dietary recommendations. Advanced prostate cancer with distant metastatic lesions. has lever, lung, bone lesions. I discussed with his oncologist Dr. Allen. It appears that the pat ient has 2 different types of cancer. 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 Chemotherapy for this type of cancer would be very taxing and probably cardiotoxic. Dr. Allen doesn't believe that the patient would be able to tolerate this type of treatment. 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 It sounds like the patient needed another biopsy in order to understand possible treatment options. However previously he has refused that. Dr. Allen believes that Hospice care would be appropriate for this patient. I discussed this with the patient first. Then I had another discussion with the patient and his present next to him and his son on the phone. On both occasions the patient stated that he would prefer to rather than have any additional tests or treatments. His and his son also feel that the patient would rather be on comfort care. They asked many questions. I answered to best of my knowledge. They verbalized understanding and satisfaction with the conversation. They requested to speak with case management regarding hospice options. Our case management is going to meet with them again today. My impression is that the patient and his family will be discharged with hospice care soon. Hyperkalemia has resolved. Acute kidney injury and dehydration. Continuing hydration. Chronic blood loss anemia. Continue monitoring. Will consider transfusion if H&H drops. Thrombocytopenia. Still severe, slightly stabilized compared to yesterday. No evidence of bleeding. DVT prophylaxis. Teds and SCDs. No anticoagulation due to severe thrombocytopenia. Abnormal LFTs. Probably secondary to liver metastatic lesions and tumor burden. Atrial fibrillation. Improved heart rate With IV fluids. Continue monitoring. DNR. Attestations Medical Necessity Statement*: Possible hospice discharge soon. Coding Level of Care Code Acute Elementary Special Education Teacher for Chg Fwd Diagnoses Dysphagia R13.10 Facial asymmetry Q67.0 Acute kidney injury N17.9 Acute dehydration E86.0 Abnormal liver enzymes R74.8 Blood loss anemia D50.0 GI bleed K92.2 Thrombocytopenia D69.6 Petechial rash R23.3 Hyperkalemia E87.5
[2020-07-19] MEDS: sodium chloride 0.9% 1,000 ML 95 ML IV (15:12)
--- NOTE | 2020-07-19 17:52 | PM.PN ---
Subjective Subjective: Interval history: Patient remained confused and sleepy. Medications: Reviewed: Yes Medication Review Details: Generic Name Dose Route Start Last Admin Trade Name Freq PRN Reason Stop Dose Admin Amiodarone HCl 200 mg 07/18/20 19:00 07/19/20 10:36 Cordarone PO Not Given BID LAURA Ferrous Gluconate 324 mg 07/16/20 10:00 07/18/20 15:38 Ferrous Gluconat e PO Not Given Q48H LAURA Sodium Chloride 1,000 mls @ 125 m ls/hr 07/17/20 19:45 07/18/20 23:39 Sodium Chloride 0.9% IV 95 mls/hr .Q8H LAURA Infusion Amino Acids/Electr olytes 1,000 mls @ 0 mls /hr 07/18/20 14:00 07/18/20 16:53 Clinimix E 4.25% -10% IV 30 mls/hr .Q0M LAURA Administration As Directed Fat Emulsion Intra venous 250 mls @ 20.833 mls/hr 07/18/20 14:00 07/18/20 16:50 Intralipid 20% IV 20.8 mls/hr Q24H LAURA Administration Morphine Sulfate 2 mg 07/15/20 21:33 07/19/20 04:41 Morphine IVP 2 mg Q4H PRN Administration SEVERE PAIN Pantoprazole Sodiu m 40 mg 07/16/20 09:00 07/19/20 10:38 Protonix PO Not Given BID LAURA Prednisone 5 mg 07/16/20 09:00 07/19/20 10:43 Prednisone PO Not Given BID [facility] Vitals/I&O/Wt Last Vital Signs Temp 97.8 F 07/19/20 15:34 Pulse 99 07/19/20 15:34 Resp 18 07/19/20 15:34 BP 110/56 07/19/20 15:34 Pulse Ox 92 07/19/20 15:34 07/19/20 07/19/20 07/19/20 06:59 14:59 22:59 Intake Total 250 / 1535.917 954.083 / 954.083 Output Total 150 / 325 Balance 100 / 1210.917 954.083 / 954.083 Physical Exam Narrative: EXAM NARRATIVE: GENERAL: Patient is drowsy and sleepy NECK: No jugular vein distension. HEENT: No cyanosis. No icterus. No pallor. HEART: Irregularly irregular S1 and S2. No murmur, rub or gallop. LUNGS: Clear to auscultate bilaterally. ABDOMEN: Soft, nontender and nondistended. Positive bowel sounds. No guarding, rebound or tenderness. CENTRAL NERVOUS SYSTEM: Grossly nonfocal. EXTREMITIES: Lower extremities with 1+ edema bilaterally. Data : 07/19/20 04:20 07/19/20 04:20 A&P Assessment and plan (1) Atrial fibrillation: Continue conservative management. Continue oral iron Status: Acute Qualifiers: Atrial fibrillation type: paroxysmal Qualified Code(s): I48.0 - Paroxysmal atrial fibrillation (2) Acute kidney injury: Continue IV hydrate Status: Acute (3) Moderate aortic stenosis: Continue conservative management Status: Acute (4) Abnormal liver enzymes: As per medicine Status: Acute (5) ASHD (arteriosclerotic heart disease): Continue medical management long-term prognosis due to metastatic carcinoma is guarded. I have detailed discussion with the patient and and his regarding guarded poor long-term prognosis. At this point hospice care may need to be considered Status: Acute Attestations Medical Necessity Statement*: As per medicine Coding Level of Care Code Established Pt Acute Turning And Beading Machine Operator for Chg Fwd Patient Type Established History Expanded Problem Focused Exam Expanded Problem Focused Medical Decision Making Low Complexity Diagnoses Atrial fibrillation I48.0 Atrial fibrillation type: paroxysmal Acute kidney injury N17.9 Moderate aortic stenosis I35.0 Abnormal liver enzymes R74.8 ASHD (arteriosclerotic heart disease) I25.10
--- NOTE | 2020-07-19 18:59 | PC.NURSE ---
pt has refused all po medications, he has been resting most of the day. he had one BM this shift and has had very little output this shift. Dr Mckenzie has put pt on comfort care at this time, pt is to only receive vitals once per shift unless needed otherwise, pt is to finish tpn and then stop all tpn. Pt has had continued swelling to bilateral legs and bilat arms, Dr red.
[2020-07-20 09:24] VITALS: RESP 18
[2020-07-20] MEDS: morphine 4 mg/mL SDV 1 mL 2 MG IVP (09:24)
[2020-07-20 11:24] VITALS: BP 61/24; RESP 17; TEMP 36.5
[2020-07-20 13:13] VITALS: RESP 14
[2020-07-20] MEDS: morphine 4 mg/mL SDV 1 mL 1 MG IVP ×4 (13:13→22:52)
--- NOTE | 2020-07-20 15:23 | P.PN_ITS ---
Subjective Subjective: Interval history: No significant changes. Patient remains weak, confused and sleepy. No acute distress. and family friend are at the bedside. Vitals/I&O/Wt Last Vital Signs Temp 97.7 F 07/20/20 11:24 Pulse 103 H 07/19/20 20:44 Resp 14 07/20/20 13:13 BP 61/24 07/20/20 11:24 Pulse Ox 97 07/19/20 20:44 07/20/20 07/20/20 07/20/20 06:59 14:59 22:59 Intake Total 0 / 954.083 Output Total 0 / 0 Balance 0 / 954.083 Physical Exam Narrative: EXAM NARRATIVE: The patient is weak and sleepy. There is no acute distress. No shortness of breath. No nausea or vomiting. Skin is warm and dry. Moist mucous membranes. Moves all extremities. No JVD. Data : 07/19/20 04:20 07/19/20 04:20 A&P Assessment and plan (1) Dysphagia: Status: Acute (2) Facial asymmetry: Status: Acute (3) Acute kidney injury: Status: Acute (4) Acute dehydration: Status: Acute (5) Abnormal liver enzymes: Status: Acute (6) Blood loss anemia: Status: Acute (7) GI bleed: Status: Acute (8) Thrombocytopenia: Status: Acute (9) Petechial rash: Status: Acute (10) Hyperkalemia: Status: Acute Additional A&P Information Dysphagia Patient has left-sided facial droop, is endorsing these findings were present 2 to 3 weeks ago as well Patient is extremely dry, not able to articulate due to dryness of mouth, I have requested nursing staff to provide him mouth swab Speech evaluation in the morning, patient is denying frequent episodes of aspiration CT head unremarkable I do suspect CVA with extreme dryness of mouth to be the etiology of this dysphagia, consider MRI in the morning please Recent EGD did not show any intraluminal mass Acute dehydration Secondary to poor p.o. intake I would resume clear liquid diet along with resuscitation MERLIN with hyperkalemia secondary to dehydration: Anticipate improvement with fluid resuscitation Hold nephrotoxic agents, hold lisinopril Hold Imdur, patient was hypotensive on admission as well, did not require stress dose steroids Chronic blood loss anemia: Hemoglobin stable GI endoscopy results mentioned in my HPI Thrombocytopenia with petechial rash Avoid DVT prophylaxis with anticoagulant, use SCDs for now Patient had received vancomycin and Zosyn in the ER (monitor platelet count after antibiotic usage however single doses are not associated with bone marrow suppression or antibody formation) which I would hold for now as she is covered for next 24 hours, I am still waiting on gallbladder ultrasound report, no ductal dilation noticed on abdominal CT scan Abnormal transaminases Worsening transaminases with high alkaline phosphatase and bilirubin, CT abdomen shows concerning changes for metastatic lesions, no ductal dilation, bowel ultrasound pending, status post Zosyn in the ER Afebrile not septic, no signs of cholangitis Patient is awake alert oriented x3 GCS 15 I do suspect hepatic lesion to be the cause of worsening transaminases Lung mass biopsy results reviewed with the patient and his Limited resuscitation: Does not want CPR or intubation okay with ice admission and use of medications Clear liquid diet for now Avoid DVT prophylaxis with anticoagulant, use SCD [place] Dysphagia. N.p.o. Receiving IV fluids for dehydration. Not sure what cause is. 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 The next step would be chest/neck CT to evaluate upper GI tract. For now we will start PPN per dietary recommendations. Advanced prostate cancer with distant metastatic lesions. has lever, lung, bone lesions. I discussed with his oncologist Dr. Allen. It appears that the patient has 2 different types of cancer. 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 Chemotherapy for this type of cancer would be very taxing and probably cardiotoxic. Dr. Allen doesn't believe that the patient would be able to tolerate this type of treatment. 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 It sounds like the patient needed another biopsy in order to understand possible treatment options. However previously he has refused that. Dr. Allen believes that Hospice care would be appropriate for this patient. I discussed this with the patient first. Then I had another discussion with the patient and his present next to him and his son on the phone. On both occasions the patient stated that he would prefer to rather than have any additional tests or treatments. His and his son also feel that the patient would rather be on comfort care. They asked many questions. I answered to best of my knowledge. They verbalized understanding and satisfaction with the conversation. They requested to speak with case management regarding hospice options. Our case management is going to meet with them again today. My impression is that the patient and his family will be discharged with hospice care soon. Hyperkalemia has resolved. Acute kidney injury and dehydration. Continuing hydration. Chronic blood loss anemia. Continue monitoring. Will consider transfusion if H&H drops. Thrombocytopenia. Still severe, slightly stabilized compared to yesterday. No evidence of bleeding. DVT prophylaxis. Teds and SCDs. No anticoagulation due to severe thr ombocytopenia. Abnormal LFTs. Probably secondary to liver metastatic lesions and tumor burden. Atrial fibrillation. Improved heart rate With IV fluids. Continue monitoring. DNR. 07/20 spoke with the patient's again. She confirmed her decision about hospice/comfort care. She confirmed her choice of DNR. However she would like her to stay in the hospital for now. She would like the rest of the family to come out of town and see him. We will continue pain medication and supplemental oxygen as needed. There is no evidence of distress, pain or suffering. Attestations Medical Necessity Statement*: The patient is still in the hospital with comfort care. Coding Level of Care Code Acute Want Ad Clerk for Chg Fwd Diagnoses Dysphagia R13.10 Facial asymmetry Q67.0 Acute kidney injury N17.9 Acute dehydration E86.0 Abnormal liver enzymes R74.8 Blood loss anemia D50.0 GI bleed K92.2 Thrombocytopenia D69.6 Petechial rash R23.3 Hyperkalemia E87.5
--- NOTE | 2020-07-20 16:12 | PM.PN ---
Subjective Subjective: Interval history: Patient is on hospice. He is arousable but confused and somnolent Medications: Reviewed: Yes Medication Review Details: Generic Name Dose Route Start Last Admin Trade Name Mili PRN Reason Stop Dose Admin Amiodarone HCl 200 mg 07/18/20 19:00 07/19/20 10:36 Cordarone PO Not Given BID LAURA Ferrous Gluconate 324 mg 07/16/20 10:00 07/18/20 15:38 Ferrous Gluconat e PO Not Given Q48H LAURA Sodium Chloride 1,000 mls @ 125 m ls/hr 07/17/20 19:45 07/18/20 23:39 Sodium Chloride 0.9% IV 95 mls/hr .Q8H LAURA Infusion Amino Acids/Electr olytes 1,000 mls @ 0 mls /hr 07/18/20 14:00 07/18/20 16:53 Clinimix E 4.25% -10% IV 30 mls/hr .Q0M LAURA Administration As Directed Fat Emulsion Intra venous 250 mls @ 20.833 mls/hr 07/18/20 14:00 07/18/20 16:50 Intralipid 20% IV 20.8 mls/hr Q24H LAURA Administration Morphine Sulfate 2 mg 07/15/20 21:33 07/19/20 04:41 Morphine IVP 2 mg Q4H PRN Administration SEVERE PAIN Pantoprazole Sodiu m 40 mg 07/16/20 09:00 07/19/20 10:38 Protonix PO Not Given BID LAURA Prednisone 5 mg 07/16/20 09:00 07/19/20 10:43 Prednisone PO Not Given BID LAURA Vitals/I&O/Wt Last Vital Signs Temp 97.7 F 07/20/20 11:24 Pulse 103 H 07/19/20 20:44 Resp 14 07/20/20 13:13 BP 61/24 07/20/20 11:24 Pulse Ox 97 07/19/20 20:44 07/20/20 07/20/20 07/20/20 06:59 14:59 22:59 Intake Total 0 / 954.083 Output Total 0 / 0 Balance 0 / 954.083 Physical Exam Narrative: EXAM NARRATIVE: Since patient was sleeping and confused and we have decided regarding hospice with DNR/DNI status I have not examined the patient just by bedside I spoke with the family and look at him in general. Data : 07/19/20 04:20 07/19/20 04:20 A&P Assessment and plan (1) Atrial fibrillation: Continue current regimen. Patient is hospice DNR/DNI we will withdraw further care as directed by family. At this point I will sign off since patient has moved to hospice and DNR/DNI with this poor only and comfort care. I will be available anytime if required. Status: Acute Qualifiers: Atrial fibrillation type: paroxysmal Qualified Code(s): I48.0 - Paroxysmal atrial fibrillation (2) Acute kidney injury: Continue IV hydrate Status: Acute (3) Moderate aortic stenosis: Continue as per medicine Status: Acute (4) Abnormal liver enzymes: As per medicine Status: Acute (5) ASHD (arteriosclerotic heart disease): Continue current regimen. We will sign off since patient has been to comfort care Status: Acute Attestations Medical Necessity Statement*: As per medicine Coding Level of Care Code Established Pt Acute Policy Value Calculator for g Fwd Patient Type Established History Expanded Problem Focused Exam Expanded Problem Focused Medical Decision Making Moderate Complexity Diagnoses Atrial fibrillation I48.0 Atrial fibrillation type: paroxysmal Acute kidney injury N17.9 Moderate aortic stenosis I35.0 Abnormal liver enzymes R74.8 ASHD (arteriosclerotic heart disease) I25.10
[2020-07-20 19:32] VITALS: RESP 20
[2020-07-20 21:28] VITALS: RESP 12
[2020-07-20 22:52] VITALS: RESP 12
[2020-07-21] VITALS (7 sets, daily range): RESP 10–12
[2020-07-21] MEDS: morphine 4 mg/mL SDV 1 mL 1 MG IVP ×4 (00:28→04:17)
[2020-07-21] MEDS: morphine 4 mg/mL SDV 1 mL 2 MG IVP ×2 (05:26→06:32)
--- NOTE | 2020-07-21 07:00 | PC.NURSE ---
Patient at 0700. Patient family in the room at this time. Report received from Dianne Nelson LPN that the Doctor and Tableman have been notified.
--- NOTE | 2020-07-21 11:09 | PC.NURSE ---
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
--- NOTE | 2020-07-21 11:09 | PC.SOCIAL ---
IMM Not Given IMM not given as patient is on comfort measures and is not expected to discharge from the hospital at this time.
--- NOTE | 2020-07-21 13:44 | PC.SOCIAL ---
Was just notified by nursing staff that patient at 0700 this AM.
--- NOTE | 2020-07-21 16:32 | P.DES_ITS ---
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 30% proximal LM stenosis, 50% distal LM stenosis. Last coronary angiogram 08/2019. Reason for Visit Reason for Visit: released 07/11 cnt swallow Summary Date and Time of : Date of : 07/21/20 Time of : 06:45 Summary: Summary: Discharge diagnoses and problem list Dysphagia. Secondary to below Advanced prostate cancer with distant metastatic lesions. has lever, lung, bone lesions. I discussed with his oncologist Dr. Allen. It appears that the patient has 2 different types of cancer. 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 Chemotherapy for this type of cancer would be very taxing and probably cardiotoxic. Dr. Allen doesn't believe that the patient would be able to tolerate this type of treatment. 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 The patient was made comfort care and hospice care yesterday per family wishes. The patient passed early this morning at 6:45. No evidence of pain or suffering at the time of according to the nursing staff. Hyperkalemia Acute kidney injury and dehydration. Chronic blood loss anemia. Thrombocytopenia. Abnormal LFTs. Probably secondary to liver metastatic lesions and tumor burden. Atrial fibrillation. Improved heart rate With IV fluids. Continue monitoring. Additional Data: Confirmation of as documented by pronouncing clinician: no pulse, no respirations and no heart sounds Family: at bedside Additional persons at bedside: nursing staff Attending/PCP notified?: Attending notified Advance directives?: Yes Discharge Plan Discharge Patient Disposition: Condition: Stable Referrals: Stevie Mullen DO [Primary Care Provider] - Discharge Date/Time: 07/21/20 11:20 Probable Cause of Probable cause of : Cardiac arrest DS Attestations Time Spent in /Discharge Care*: less than 30 min Quality - AMI: AMI present?: No Quality - Stroke: CVA present?: No Quality - VTE: VTE present?: No Coding Level of Care Code Acute Still Operator for [facility] Fwd Diagnoses Atrial fibrillation I48.0 Atrial fibrillation type: paroxysmal Acute kidney injury N17.9 Moderate aortic stenosis I35.0 Abnormal liver enzymes R74.8 ASHD (arteriosclerotic heart disease) I25.10
== END 2020-07-21 11:20 | disposition expired | DRG 683 ==
LOC: ER 20:16 → MEDSURG 20:33
PROVIDERS: Family Medicine; Admitting Provider Internal Medicine; Emergency Provider Emergency Medicine; PCP Emergency Medicine Emergency Medical Services; Visit Provider Internal Medicine
DX: N17.9 Acute kidney failure, unspecified (principal); K92.2 Gastrointestinal hemorrhage, unspecified; C78.7 Secondary malignant neoplasm of liver and intrahepatic bile duct; C49.9 Malignant neoplasm of connective and soft tissue, unspecified; C79.51 Secondary malignant neoplasm of bone; C78.00 Secondary malignant neoplasm of unspecified lung; I25.10 Atherosclerotic heart disease of native coronary artery without angina pectoris; I35.0 Nonrheumatic aortic (valve) stenosis; Z66 Do not resuscitate; I46.9 Cardiac arrest, cause unspecified; Z51.5 Encounter for palliative care; I48.0 Paroxysmal atrial fibrillation; E87.5 Hyperkalemia; D69.6 Thrombocytopenia, unspecified; D50.0 Iron deficiency anemia secondary to blood loss (chronic); Q67.0 Congenital facial asymmetry; R13.10 Dysphagia, unspecified; E86.0 Dehydration; C61 Malignant neoplasm of prostate; Z85.828 Personal history of other malignant neoplasm of skin; Z85.038 Personal history of other malignant neoplasm of large intestine; Z87.891 Personal history of nicotine dependence; R29.810 Facial weakness; Z19.2 Hormone resistant malignancy status
CPT/HCPCS: 12345; 36415; 70450; 70551; 71045; 74177; 76705; 80053; 80069; 81001; 83605; 83690; 83735; 85007; 85025; 87040; 92507; 92526; 92610; 93005; 96375; 99283; C9113; G0378; J2270; J2405; J2543; J3370; J3490; J7030; J7040; J7050; J7512; J7799; Q9967